=== PATIENT | female | born 1995 | race Caucasian/White ===

== ENCOUNTER 2017-06-06 21:44 | Emergency (ER) | payer SELFPAY ==
[~2017-06-06 21:44] MED LIST: IUD PV
== END 2017-06-06 21:47 | disposition left against medical advice (07) ==
LOC: C.EDB 21:46
DX: Z00.8 Encounter for other general examination (principal)

== ENCOUNTER 2020-03-04 09:53 | Inpatient (IN) ==
[2020-03-04] MEDS ORDERED: OXYTOCIN 30 UNITS/500 ML BAG IV PRN (11:35)
[2020-03-04 11:56] LABS: Hematocrit (blood only) 28.2 % (37-47); Hemoglobin 9.8 g/dL (12.0-16.0); Mean Corpuscular Hemoglobin 30.6 pg (25-34); Mean Corpuscular Volume 88.1 fL (80-100); Mean Platelet Volume 9.5 fL (7.4-10.4); Platelet Count 156 K/uL (130-400); RDW Coefficient of Variation 14.2 % (11.5-14.5); RDW Standard Deviation 45.9 fL (36.4-46.3); White Blood Count 7.16 K/uL (4.8-10.8)
[2020-03-04 12:14] LABS: Mean Corpuscular Hgb Conc 34.8 g/dL (32-36)
--- NOTE | 2020-03-04 12:22 | Post Operative Brief Note ---
PG Immediate Post Op with CF Date of Surgery March 04, 2020 Pre & Post Diagnosis Missed I identified the patient and participated in the time-out.: Yes Procedure Dilation and evacuation and curettage Surgeon Maya Altamirano MD, FACOG Chain Saw Mechanic none Estimated Blood Loss 200 Findings Consistent with Post-Op Diagnosis (uterus sounds to 12cm preprocedure, small and mobile postprocedure. large POCs) Fluids 500 Specimens Specimen Description: POCs Anesthesia Type General Complications none Disposition Accompanied Patient To Recovery: No Disposition: Recovery Room
--- NOTE | 2020-03-04 15:24 | History & Physical Report ---
Date of Service March 04, 2020 Assessment & Plan (1) 39 weeks gestation of : (2) Left femoral hernia without obstruction or gangrene: (3) Rh negative status during : admit, iv, labs done. as afternoon progressed multiple emergencies have come into unit. due to her desire to have epidural before we do anything, we have not had chance to obtain such so in essence we have not done anything for her in way of induction. there is not a likelihood i can begin that process in next 6hr. we need the labor room for active laboring patient. she is given option of going home (we would remove iv) with plan to return tomorrow, vs. move to non labor room to await time when we can begin induction after placement of epidural. nst reactive. she and partner decide to stay in hospital and move to another room to await induction. we did feed her lunch earlier and will plan to offer dinner if continues to wait. History of Present Illness Chief Complaint: planned induction Primary Care Provider: Annette See, DO 25yo at 39wks sofie presents to L&D for planned induction for history of inguinal hernia and pain. She has been offered induction after 39 completed weeks so that she can get to point of repair of hernia after course. She has significant pain with exams. She was delayed as far her arrival time this am and unfortunately when she did come the unit was too busy to begin her induction. She did get an iv site and labs and we had discussed use of epidural and then add pitocin and plan kendrick ripening balloon. pnc c/b 1. rh neg 2. inguinal hernia pnl rh neg, ri, gbs neg obh: g1 gynh: nl paps, no stds. Current Active Problems Problem Status Onset Vaginal discharge in in third trimester Left femoral hernia without obstruction or gangrene Rh negative status during Supervision of normal intrauterine in primigravida Allergies Allergy/AdvReac Type Severity Reaction Status Date / Time Penicillins Allergy Severe HIVES Verified 03/03/20 11:16 Home Medications Home Medications Medication Instructions Recorded Confirmed Type breast pump #1 ea 01/20/20 03/03/20 Rx docosahexaenoic acid [ DHA] 1 mg PO BID 03/04/20 03/04/20 History ferrous sulfate [Iron (ferrous 325 mg PO BID 03/04/20 03/04/20 History sulfate)] Patient History Social History Preferred Language: [place] 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: No Beliefs That Will Affect Care: None marital status: Single marital status details: RAFIQ Carver (27) [phone] Current Living Situation: Family and Significant Other Current Living Situation Comment: Pt lives with mother JOSE ARMANDO Lester current occupational status: employed 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 [employer] Other Information That Helps Us Care for You: No Feels Safe at Home: Yes Smoking Status: Former smoker Tobacco Type: cigarettes ; Cigarettes Per Day: 3 ; Second Hand Exposure: No ; Hx Alcohol Use: No Hx Substance Use: No Review of Systems no fever no change in stools no dysuria and no abnormal vaginal bleeding Physical Exam Constitutional: WD/WN, vitals as above Neurologic: grossly normal Psychiatric: A+Ox3, euthymic affect Genitourinary: OB Exam Monitor Tracing: + external FHT monitor used (nst react shashi ) and + external uterine monitor used (irreg) Results & Data Vital Signs (Past 12 Hours) Vital Signs Temp Pulse Resp BP 03/04/20 14:41 98.8 F 86 20 107/58 L 03/04/20 11:19 83 92/53 L 03/04/20 11:09 98.8 F 83 20 92/53 L Coding Level of Care Code None Diagnoses 39 weeks gestation of Z3A.39 Left femoral hernia without obstruction or gangrene K41.90 Rh negative status during O26.899; Z67.91
[2020-03-04] MEDS ORDERED: ePHEDrine sulfate 50 MG/ML AMP ONE (20:19)
[2020-03-04] MEDS ORDERED: fentaNYL citrate 100 MCG/2 ML VIAL ONE (20:19)
[2020-03-04] MEDS ORDERED: BUPIVACAINE 0.25% 30 ML VIAL ONE (20:19)
[2020-03-04] MEDS ORDERED: fentaNYL 2MCG/ML ROPIV 1.25MG/ML 100 ML BAG EPI ONE (20:20)
[2020-03-04] MEDS: LACTATED RINGER'S 1,000 ML IV PRN ×2 (20:30→21:29)
[2020-03-04] MEDS ORDERED: NALOXONE HCL 0.4 MG/1 ML VIAL/CARP IV PRN (20:57)
[2020-03-04] MEDS ORDERED: ONDANSETRON INJ 2 MG/ML 2 ML VIAL IV PRN (20:57)
[2020-03-04] MEDS ORDERED: NALOXONE HCL 1 MG in SODIUM CHLORIDE 0.9% 1000ML 1,000 ML IV PRN (20:57)
[2020-03-04] MEDS ORDERED: DiphenhydrAMINE HCL 50 MG/ML VIAL IV PRN (20:57)
[2020-03-04] MEDS ORDERED: NALBUPHINE HCL INJ 10 MG/ML AMP IV PRN (20:57)
[2020-03-04] MEDS ORDERED: ePHEDrine sulfate 50 MG/ML AMP IV PRN (20:57)
--- NOTE | 2020-03-04 21:03 | Anesthesiology Consultation ---
Date of Service March 04, 2020 Assessment & Plan (1) Encounter for pre-operative examination: Chart Review Chart Review: Acceptable Risk for Labor Epidural Consults Requested none ASA ASA2 Proposed Anesthesia Anesthesia Type: Labor Epidural Risk / Benefits Reviewed With: PT / POA / Parent / Guardian, Accepts Plan and Informed Consent Obtained History Height/Weight Height: 5 ft 6 in Weight: 74.482 kg Allergies Allergy/AdvReac Type Severity Reaction Status Date / Time Penicillins Allergy Severe HIVES Verified 03/03/20 11:16 Medications Home Medications Medication Instructions Recorded Confirmed Last Taken breast pump #1 ea 01/20/20 03/03/20 Unknown docosahexaenoic acid [ DHA] 1 mg PO BID 03/04/20 03/04/20 03/03/20 20:00 ferrous sulfate [Iron (ferrous 325 mg PO BID 03/04/20 03/04/20 03/03/20 20:00 sulfate)] Active Medications Generic Name Dose Route Start Last Admin Trade Name Freq PRN Reason Stop Dose Admin Lactated Ringer's 1,000 mls @ 125 mls/hr 03/04/20 11:35 03/04/20 20:31 Lr IV 03/06/20 11:34 999 mls/hr .Q8H PRN Infusion L&D Protocol Protocol Past Medical History Medical History (Updated 03/04/20 @ 21:03 by Ronen Morales DO) Encounter for anatomic survey Hernia Ovarian cyst Painful intercourse UTI (urinary tract infection) Varicella vaccine Exercise / Class Metabolic Activity II 4-5 Yardwork/Stairs/Walk up hill Past Family History Family History Mother Kidney stone Sister Thyroid disease Ovarian cyst Aunt Ovarian cyst Cystic kidney disease Past Surgical History Surgical History S/P wisdom tooth extraction S/P wrist surgery Past Anesthesia History No Hx of Anesthesia Complications and No Family Hx of Anesthesia Complications History of PONV No Hx of PONV and No Hx of Motion Sickness Social History Smoking Status: Former smoker tobacco type: cigarettes Smoking cigarettes per day: 3 Hx Alcohol Use: No Hx Substance Use: No substance use type: does not use Physical Exam Vital Signs Last Vital Signs Temp 98.2 F 03/04/20 20:14 Pulse 84 03/04/20 20:15 Resp 18 03/04/20 20:14 BP 102/62 03/04/20 20:15 ENMT Mouth: no dentition abnormality Thyromental Distance: > or= 3.5 Finger Breadths Mallampati Class: II Neck normal visual inspection Respiratory normal respiratory effort Auscultation: lungs clear to auscultation bilaterally Cardiovascular Rate/Rhythm: regular rate and regular rhythm Testing Laboratory Results 03/04/20 11:42 Blood Type B Negative 03/04/20 11:42 Antibody Screen POSITIVE A 03/04/20 11:42
--- NOTE | 2020-03-04 22:22 | Obstetrical Progress Note ---
Date of Service March 04, 2020 Assessment & Plan (1) 39 weeks gestation of : (2) Left femoral hernia without obstruction or gangrene: kendrick balloon placed. begin pitocin. fhts categ 1. Subjective pt now comfortable with epidural and ready to proceed with kendrick ripening balloon. i could not effectively check her cx in office yesterday, so will do so first to decide if kendrick indicated. will also begin pitocin for planned inductio n. Physical Exam Constitutional: WD/WN, vitals as above Genitourinary: OB Exam Abdomen: + estimated weight (7-8#) Manual OB Exam: + cervical dilation fingertip, + cervical effacement (75%) and + station - 2 OB Exam Monitor Tracing: + external FHT monitor used (145 mod variability, reactive), + external uterine monitor used (irreg), + category I and + normal FHT variability SSE, kendrick balloon placed after grasping cx with ring, 40cc water placed in balloon. spec removed. kendrick taped to leg. kendrick urinary catheter placed in bladder under sterile conditions. Results & Data Vital Signs (Past 12 Hours) Vital Signs Temp Pulse Resp BP Pulse Ox 03/04/20 22:18 77 85/50 L 03/04/20 22:13 91 H 98 03/04/20 22:09 86 99/58 L 03/04/20 22:08 92 H 99 03/04/20 22:03 82 100 03/04/20 22:00 90 104/52 L 03/04/20 21:59 92 H 86 L 03/04/20 21:58 87 100 03/04/20 21:53 91 H 99 03/04/20 21:49 82 102/59 L 03/04/20 21:48 84 96 03/04/20 21:43 83 96 03/04/20 21:39 83 101/61 03/04/20 21:38 87 98 03/04/20 21:33 93 H 97 03/04/20 21:28 85 108/62 98 03/04/20 21:25 78 105/61 03/04/20 21:23 87 99 03/04/20 21:22 80 102/59 L 03/04/20 21:19 83 106/56 L 03/04/20 21:18 74 100 03/04/20 21:17 85 106/58 L 03/04/20 21:13 85 100 03/04/20 21:08 87 100 03/04/20 21:03 91 H 100 03/04/20 20:15 84 102/62 03/04/20 20:14 98.2 F 18 03/04/20 14:41 98.8 F 86 20 107/58 L 03/04/20 11:19 83 92/53 L 03/04/20 11:09 98.8 F 83 20 92/53 L PG Care Time/CCT Total # of Minutes Spent Total Time Spent with Patient: Total time spent is greater than 50% in coordination of care (as documented) at patient's floor/unit and/or counseling patient: Coding Level of Care Code None Diagnoses 39 weeks gestation of Z3A.39 Left femoral hernia without obstruction or gangrene K41.90 CPT Codes Kendrick Bulb Placement for Cervical Ripening - [id number] ([id number])
[2020-03-04] MEDS: OXYTOCIN 30 UNITS/500 ML BAG IV PRN (22:32)
[2020-03-05] MEDS: LACTATED RINGER'S 1,000 ML IV PRN ×3 (05:15→18:21)
[2020-03-05] MEDS: fentaNYL 2MCG/ML ROPIV 1.25MG/ML 100 ML BAG EPI PRN ×3 (06:28→18:36)
--- NOTE | 2020-03-05 07:15 | Labor Progress Brief Note ---
Date of Service March 05, 2020 Subjective Reason For Note: Routine Evaluation resting well with epidural. Assessment & Plan (1) 39 weeks gestation of : (2) Left femoral hernia without obstruction or gangrene: (3) Rh negative status during : (4) Encounter for induction of labor: cont with pitocin, can see how arom helps labor pattern. fhts categ1. Physical Exam Constitutional: WD/WN, vitals as above Psychiatric: A+Ox3, euthymic affect Genitourinary: Manual OB Exam: + cervical dilation 4 cm, + cervical effacement (75%), + station -2 and + amniotic fluid (AROM) clear OB Exam Monitor Tracing: + external FHT monitor used (135 mod variability, reactive), + external uterine monitor used (q2), + category I and + normal FHT variability Results & Data Vital Signs (Past 12 Hours) Vital Signs Temp Pulse Resp BP Pulse Ox 03/05/20 07:10 78 94 03/05/20 07:09 78 94 03/05/20 07:07 77 99/50 L 03/05/20 07:05 84 96 03/05/20 07:00 84 20 95 03/05/20 06:55 85 98 03/05/20 06:51 98.1 F 77 100/56 L 03/05/20 06:50 88 97 03/05/20 06:45 74 95 03/05/20 06:40 71 95 03/05/20 06:36 75 95/54 L 03/05/20 06:35 75 94 03/05/20 06:30 78 16 95 03/05/20 06:28 78 94 03/05/20 06:25 80 95 03/05/20 06:20 78 97/54 L 94 03/05/20 06:16 77 94 03/05/20 06:15 76 96 03/05/20 06:11 80 94 03/05/20 06:10 78 96 03/05/20 06:05 81 96/52 L 95 03/05/20 06:03 79 94 03/05/20 06:00 72 18 95 03/05/20 05:56 78 94 03/05/20 05:55 76 95 03/05/20 05:50 67 94/50 L 94 03/05/20 05:49 79 94 03/05/20 05:45 75 95 03/05/20 05:44 75 94 03/05/20 05:40 75 95 03/05/20 05:38 79 94 03/05/20 05:35 96 H 94/54 L 96 03/05/20 05:30 80 93 03/05/20 05:29 16 03/05/20 05:25 74 95 03/05/20 05:23 79 94 03/05/20 05:21 77 93/56 L 03/05/20 05:20 93 H 95 03/05/20 05:17 86 93 03/05/20 05:15 98.1 F 80 95 03/05/20 05:12 78 94 03/05/20 05:10 75 95 03/05/20 05:07 77 94 03/05/20 05:05 81 95/53 L 94 03/05/20 05:01 74 94 03/05/20 05:00 76 18 94 03/05/20 04:55 76 95 03/05/20 04:54 77 94 03/05/20 04:50 77 95/55 L 96 03/05/20 04:46 78 94 03/05/20 04:45 81 95 03/05/20 04:41 79 94 03/05/20 04:40 73 96 03/05/20 04:37 80 87/50 L 03/05/20 04:35 82 93 03/05/20 04:34 78 94 03/05/20 04:30 93 H 95 03/05/20 04:25 78 95 03/05/20 04:23 83 94 03/05/20 04:21 80 101/57 L 03/05/20 04:20 81 93 03/05/20 04:17 82 94 03/05/20 04:15 77 94 03/05/20 04:11 77 94 03/05/20 04:10 73 96 03/05/20 04:07 92 H 100/56 L 03/05/20 04:05 73 95 03/05/20 04:04 75 94 03/05/20 04:00 77 95 03/05/20 03:59 77 94 03/05/20 03:54 77 95 03/05/20 03:52 76 94 03/05/20 03:50 80 101/55 L 03/05/20 03:49 79 94 03/05/20 03:45 76 94 04/30/20 03:44 78 94 03/05/20 03:39 74 94 03/05/20 03:38 76 94 03/05/20 03:35 80 96/57 L 03/05/20 03:34 75 94 03/05/20 03:32 75 94 03/05/20 03:30 18 03/05/20 03:29 76 94 03/05/20 03:24 73 94 03/05/20 03:21 76 94 03/05/20 03:20 77 95/54 L 03/05/20 03:19 76 94 03/05/20 03:14 77 94 03/05/20 03:09 81 94 03/05/20 03:06 80 98/54 L 03/05/20 03:05 83 93 03/05/20 03:04 80 94 03/05/20 03:00 20 03/05/20 02:59 85 94 03/05/20 02:54 84 94 03/05/20 02:51 79 96/51 L 03/05/20 02:49 80 94 03/05/20 02:44 84 94 03/05/20 02:42 82 94 03/05/20 02:39 81 95 03/05/20 02:37 87 100/58 L 03/05/20 02:34 89 95 03/05/20 02:32 82 94 03/05/20 02:30 97.9 F 20 03/05/20 02:29 84 98 03/05/20 02:24 89 99 03/05/20 02:21 86 108/61 03/05/20 02:19 97 H 99 03/05/20 02:14 82 95 03/05/20 02:09 89 96 03/05/20 02:06 83 106/57 L 03/05/20 02:04 78 96 03/05/20 02:00 20 03/05/20 01:59 83 94 03/05/20 01:54 76 96 03/05/20 01:52 80 104/59 L 03/05/20 01:51 79 94 03/05/20 01:49 79 97 03/05/20 01:44 78 96 03/05/20 01:43 80 94 03/05/20 01:39 84 96 03/05/20 01:35 76 99/58 L 03/05/20 01:34 79 94 03/05/20 01:31 77 93 03/05/20 01:30 16 03/05/20 01:29 79 95 03/05/20 01:26 79 94 03/05/20 01:24 78 96 03/05/20 01:21 82 102/61 03/05/20 01:19 85 97 03/05/20 01:14 92 H 97 03/05/20 01:09 79 96 03/05/20 01:08 82 94 03/05/20 01:06 76 102/58 L 03/05/20 01:04 80 96 03/05/20 01:02 84 93 03/05/20 01:00 20 03/05/20 00:59 82 95 03/05/20 00:54 78 97 03/05/20 00:52 72 104/61 03/05/20 00:49 81 95 03/05/20 00:44 79 96 03/05/20 00:41 80 94 03/05/20 00:39 75 96 03/05/20 00:35 80 99/55 L 03/05/20 00:34 78 95 03/05/20 00:30 81 16 94 03/05/20 00:29 85 97 03/05/20 00:24 81 97 03/05/20 00:21 85 98/63 L 03/05/20 00:19 78 98 03/05/20 00:14 76 96 03/05/20 00:09 79 99 03/05/20 00:07 69 103/60 91 03/05/20 00:04 75 96 03/05/20 00:00 03/04/20 23:59 75 96 03/04/20 23:56 79 94 03/04/20 23:54 70 97 03/04/20 23:51 65 101/55 L 03/04/20 23:50 78 94 03/04/20 23:49 72 97 03/04/20 23:44 80 98 03/04/20 23:39 80 97 03/04/20 23:37 77 103/57 L 03/04/20 23:34 75 98 03/04/20 23:30 20 03/04/20 23:29 82 96 03/04/20 23:24 78 98 03/04/20 23:21 73 102/62 04/29/20 23:19 79 97 03/04/20 23:14 86 97 03/04/20 23:09 80 99 03/04/20 23:05 88 102/58 L 03/04/20 23:04 86 97 03/04/20 23:01 84 104/61 03/04/20 22:59 83 98 03/04/20 22:55 91 H 103/62 03/04/20 22:54 98.1 F 88 20 97 03/04/20 22:51 86 101/63 03/04/20 22:49 88 97 03/04/20 22:45 85 103/57 L 03/04/20 22:44 89 97 03/04/20 22:41 83 103/58 L 03/04/20 22:39 84 99 03/04/20 22:35 83 106/61 03/04/20 22:34 87 99 03/04/20 22:30 90 111/68 03/04/20 22:29 99 H 99 03/04/20 22:24 111 H 107/64 97 03/04/20 22:22 94 H 93 03/04/20 22:21 78 84/52 L 03/04/20 22:19 75 87/52 L 98 03/04/20 22:18 77 85/50 L 03/04/20 22:13 91 H 98 03/04/20 22:09 86 99/58 L 03/04/20 22:08 92 H 99 03/04/20 22:03 82 100 03/04/20 22:00 90 104/52 L 03/04/20 21:59 92 H 86 L 03/04/20 21:58 87 100 03/04/20 21:53 91 H 99 03/04/20 21:49 82 102/59 L 03/04/20 21:48 84 96 03/04/20 21:43 83 96 03/04/20 21:39 83 101/61 03/04/20 21:38 87 98 03/04/20 21:33 93 H 97 03/04/20 21:28 85 108/62 98 03/04/20 21:25 78 105/61 03/04/20 21:23 87 99 03/04/20 21:22 80 102/59 L 03/04/20 21:19 83 106/56 L 03/04/20 21:18 74 100 03/04/20 21:17 85 106/58 L 03/04/20 21:13 85 100 03/04/20 21:08 87 100 03/04/20 21:03 91 H 100 03/04/20 20:15 84 102/62 03/04/20 20:14 98.2 F 18 Coding Level of Care Code None Diagnoses 39 weeks gestation of Z3A.39 Left femoral hernia without obstruction or gangrene K41.90 Rh negative status during O26.899; Z67.91 Encounter for induction of labor Z34.90
--- NOTE | 2020-03-05 14:27 | Labor Progress Brief Note ---
Date of Service March 05, 2020 Subjective Delayed documentation due to patient care. Patient seen around 1pm. Comfortable with epidural. Assessment & Plan (1) Encounter for induction of labor: Progress noted but is very slow. Discussed with patient at our first visit this morning that we are hoping to avoid a long hard second stage to protect her hernia from worsening. She and FOB were made aware of my concerns about the unusual labor pattern, high pitocin doses being required, and slow progress, which do not necessarily eliu well for a short easy push. She is aware. Since there is cervical change at last exam, she wished to continue laboring at that time. Physical Exam Physical Exam: /-3/post Progress noted but station and position remain very high and cervix is still a full finger's length of thickness. Leakage of fluid continues. FHT Cat 1 Pit @ 30 Temp noted now at 14:21 to be 100F also. Results & Data Vital Signs (Past 12 Hours) Vital Signs Temp Pulse Resp BP Pulse Ox 03/05/20 14:21 84 91/54 L 03/05/20 14:20 85 95 03/05/20 14:16 89 94 03/05/20 14:15 88 94 03/05/20 14:10 87 94 03/05/20 14:05 90 94/53 L 94 03/05/20 14:00 92 H 95 03/05/20 13:55 99 H 95 03/05/20 13:52 96 H 94 03/05/20 13:51 88 94/52 L 03/05/20 13:50 93 H 95 03/05/20 13:45 104 H 95 03/05/20 13:44 99 H 94 03/05/20 13:40 94 H 95 03/05/20 13:35 88 98/54 L 96 03/05/20 13:30 93 H 96 03/05/20 13:25 92 H 98 03/05/20 13:22 88 94/53 L 03/05/20 13:20 87 96 03/05/20 13:15 91 H 97 03/05/20 13:10 93 H 97 03/05/20 13:05 86 97/54 L 96 03/05/20 13:00 98 H 97 03/05/20 12:55 96 H 96 03/05/20 12:51 86 96/52 L 03/05/20 12:50 94 H 95 03/05/20 12:45 92 H 96 03/05/20 12:43 90 94 03/05/20 12:40 88 95 03/05/20 12:35 100 H 92/51 L 95 03/05/20 12:30 86 94 03/05/20 12:26 78 94 03/05/20 12:25 92 H 94 03/05/20 12:21 87 94 03/05/20 12:20 100.0 F H 83 20 95/54 L 95 03/05/20 12:16 88 94 03/05/20 12:15 92 H 94 03/05/20 12:10 92 H 94 03/05/20 12:06 87 93/54 L 03/05/20 12:05 90 94 03/05/20 12:01 100 H 92 03/05/20 12:00 91 H 94 03/05/20 11:55 99 H 94 03/05/20 11:52 87 96/54 L 03/05/20 11:50 99 H 94 03/05/20 11:49 92 H 94 03/05/20 11:45 101 H 94 03/05/20 11:43 98 H 94 03/05/20 11:40 92 H 94 03/05/20 11:35 93 H 98/52 L 94 03/05/20 11:33 95 H 94 03/05/20 11:30 93 H 94 03/05/20 11:25 107 H 94 03/05/20 11:24 95 H 94 03/05/20 11:21 95 H 93/50 L 03/05/20 11:20 98 H 94 03/05/20 11:19 94 H 94 03/05/20 11:16 99.5 F 20 03/05/20 11:15 99 H 93 03/05/20 11:14 93 H 94 03/05/20 11:10 89 94 03/05/20 11:06 91 H 92/52 L 94 03/05/20 11:05 91 H 94 03/05/20 11:00 92 H 94 03/05/20 10:57 89 94 03/05/20 10:55 94 H 94 03/05/20 10:51 99 H 94 03/05/20 10:50 96 H 98/54 L 93 03/05/20 10:45 91 H 94 03/05/20 10:40 91 H 94 03/05/20 10:36 83 94 03/05/20 10:35 81 95/52 L 93 03/05/20 10:30 93 H 93 03/05/20 10:25 89 94 03/05/20 10:22 89 94/50 L 03/05/20 10:20 90 94 03/05/20 10:19 95 H 94 03/05/20 10:15 90 94 03/05/20 10:12 90 94 03/05/20 10:10 99 H 95 03/05/20 10:05 94 H 101/55 L 94 03/05/20 10:00 97 H 94 03/05/20 09:55 99 H 95 03/05/20 09:54 98 H 94 03/05/20 09:50 95 H 100/54 L 97 03/05/20 09:46 96 H 94 03/05/20 09:45 92 H 95 03/05/20 09:41 97 H 94 03/05/20 09:40 95 H 95 03/05/20 09:36 96 H 106/53 L 03/05/20 09:35 100 H 95 03/05/20 09:30 94 H 96 03/05/20 09:26 102 H 94 03/05/20 09:25 96 H 94 03/05/20 09:21 99.3 F 88 20 94/51 L 94 03/05/20 09:20 97 H 95 03/05/20 09:16 103 H 94 03/05/20 09:15 97 H 95 03/05/20 09:10 94 H 95 03/05/20 09:07 91 H 94 03/05/20 09:05 88 97/52 L 94 03/05/20 09:00 86 95 03/05/20 08:59 96 H 94 03/05/20 08:55 88 94 03/05/20 08:53 94 H 94 03/05/20 08:52 93 H 98/51 L 03/05/20 08:50 100 H 97 03/05/20 08:49 98 H 93/55 L 03/05/20 08:45 84 95 03/05/20 08:44 83 81/46 L 94 03/05/20 08:40 80 94 03/05/20 08:38 80 94 03/05/20 08:36 80 88/49 L 03/05/20 08:35 76 94 03/05/20 08:30 79 94 03/05/20 08:25 75 94 03/05/20 08:21 74 88/52 L 03/05/20 08:20 84 94 03/05/20 08:15 78 94 03/05/20 08:10 76 94 03/05/20 08:07 75 94 03/05/20 08:06 76 90/51 L 03/05/20 08:05 76 94 03/05/20 08:00 78 94 03/05/20 07:57 74 94 03/05/20 07:55 77 94 03/05/20 07:51 73 91/53 L 92 03/05/20 07:50 79 94 03/05/20 07:45 74 94 03/05/20 07:44 74 94 03/05/20 07:40 79 94 03/05/20 07:35 82 95/53 L 94 03/05/20 07:30 78 96 03/05/20 07:29 76 94 03/05/20 07:25 81 96 03/05/20 07:20 98.4 F 83 20 97/52 L 96 03/05/20 07:15 80 94 03/05/20 07:10 78 94 03/05/20 07:09 78 94 03/05/20 07:07 77 99/50 L 03/05/20 07:05 84 96 03/05/20 07:00 84 20 95 03/05/20 06:55 85 98 03/05/20 06:51 98.1 F 77 100/56 L 03/05/20 06:50 88 97 03/05/20 06:45 74 95 03/05/20 06:40 71 95 03/05/20 06:36 75 95/54 L 03/05/20 06:35 75 94 03/05/20 06:30 78 16 95 03/05/20 06:28 78 94 03/05/20 06:25 80 95 03/05/20 06:20 78 97/54 L 94 03/05/20 06:16 77 94 03/05/20 06:15 76 96 03/05/20 06:11 80 94 03/05/20 06:10 78 96 03/05/20 06:05 81 96/52 L 95 03/05/20 06:03 79 94 03/05/20 06:00 72 18 95 03/05/20 05:56 78 94 03/05/20 05:55 76 95 03/05/20 05:50 67 94/50 L 94 03/05/20 05:49 79 94 03/05/20 05:45 75 95 03/05/20 05:44 75 94 03/05/20 05:40 75 95 03/05/20 05:38 79 94 03/05/20 05:35 96 H 94/54 L 96 03/05/20 05:30 80 93 03/05/20 05:29 16 03/05/20 05:25 74 95 03/05/20 05:23 79 94 03/05/20 05:21 77 93/56 L 03/05/20 05:20 93 H 95 03/05/20 05:17 86 93 03/05/20 05:15 98.1 F 80 95 03/05/20 05:12 78 94 03/05/20 05:10 75 95 03/05/20 05:07 77 94 03/05/20 05:05 81 95/53 L 94 03/05/20 05:01 74 94 03/05/20 05:00 76 18 94 03/05/20 04:55 76 95 03/05/20 04:54 77 94 03/05/20 04:50 77 95/55 L 96 03/05/20 04:46 78 94 03/05/20 04:45 81 95 03/05/20 04:41 79 94 03/05/20 04:40 73 96 03/05/20 04:37 80 87/50 L 03/05/20 04:35 82 93 03/05/20 04:34 78 94 03/05/20 04:30 93 H 95 03/05/20 04:25 78 95 03/05/20 04:23 83 94 03/05/20 04:21 80 101/57 L 03/05/20 04:20 81 93 03/05/20 04:17 82 94 03/05/20 04:15 77 94 03/05/20 04:11 77 94 03/05/20 04:10 73 96 03/05/20 04:07 92 H 100/56 L 03/05/20 04:05 73 95 03/05/20 04:04 75 94 03/05/20 04:00 77 95 03/05/20 03:59 77 94 03/05/20 03:54 77 95 03/05/20 03:52 76 94 03/05/20 03:50 80 101/55 L 03/05/20 03:49 79 94 03/05/20 03:45 76 94 03/05/20 03:44 78 94 03/05/20 03:39 74 94 03/05/20 03:38 76 94 03/05/20 03:35 80 96/57 L 03/05/20 03:34 75 94 03/05/20 03:32 75 94 03/05/20 03:30 18 03/05/20 03:29 76 94 03/05/20 03:24 73 94 03/05/20 03:21 76 94 03/05/20 03:20 77 95/54 L 03/05/20 03:19 76 94 03/05/20 03:14 77 94 03/05/20 03:09 81 94 03/05/20 03:06 80 98/54 L 03/05/20 03:05 83 93 03/05/20 03:04 80 94 03/05/20 03:00 20 03/05/20 02:59 85 94 03/05/20 02:54 84 94 03/05/20 02:51 79 96/51 L 03/05/20 02:49 80 94 03/05/20 02:44 84 94 03/05/20 02:42 82 94 03/05/20 02:39 81 95 03/05/20 02:37 87 100/58 L 03/05/20 02:34 89 95 03/05/20 02:32 82 94 03/05/20 02:30 97.9 F 20 03/05/20 02:29 84 98 Coding Level of Care Code None Diagnoses Encounter for induction of labor Z34.90
[2020-03-05] MEDS ORDERED: Nursing to Pharmacy Communication ONE (17:47)
--- NOTE | 2020-03-05 18:12 | Labor Progress Brief Note ---
Date of Service March 05, 2020 Subjective Pain in L leg / hip area. Epidural re-bolus earlier did not provide relief of this exact pain. Wonder if this is due to hernia contents innervated at a higher spinal level than the epidural reaches. Patient may try to self-reduce the hernia to see if this provides pain relief. Assessment & Plan (1) Encounter for induction of labor: Continue current mgmt. Physical Exam Physical Exam: FHT Cat 1 [place] Q3 Pit @ 30 Cvx 6-7/100/0 Results & Data Vital Signs (Past 12 Hours) Vital Signs Temp Pulse Resp BP Pulse Ox 03/05/20 18:07 94 H 102/52 L 03/05/20 18:05 97 H 100 03/05/20 18:00 97 H 100 03/05/20 17:55 94 H 100 03/05/20 17:50 93 H 88/49 L 96 03/05/20 17:45 105 H 96 03/05/20 17:40 94 H 99 03/05/20 17:36 92 H 86/47 L 03/05/20 17:35 99 H 100 03/05/20 17:30 93 H 99 03/05/20 17:25 89 100 03/05/20 17:22 86 99/55 L 03/05/20 17:20 88 99 03/05/20 17:15 96 H 99 03/05/20 17:10 99 H 98 03/05/20 17:07 95 H 106/57 L 03/05/20 17:05 90 97 03/05/20 17:00 98.2 F 97 H 20 98 03/05/20 16:55 98 H 98 03/05/20 16:52 98 H 97/54 L 03/05/20 16:50 92 H 97 03/05/20 16:45 92 H 97 03/05/20 16:40 109 H 98 03/05/20 16:35 88 91/55 L 96 03/05/20 16:30 87 18 97 03/05/20 16:25 86 96 03/05/20 16:22 86 90/52 L 03/05/20 16:20 88 96 03/05/20 16:15 89 96 03/05/20 16:10 101 H 97 03/05/20 16:05 94 H 96/51 L 95 03/05/20 16:03 92 H 94 03/05/20 16:00 93 H 18 96 03/05/20 15:55 91 H 97 03/05/20 15:51 90 91/54 L 03/05/20 15:50 99 H 97 03/05/20 15:47 100 H 94 03/05/20 15:45 100 H 97 03/05/20 15:40 96 H 97 03/05/20 15:36 95 H 99/58 L 03/05/20 15:35 93 H 97 03/05/20 15:30 95 H 18 96 03/05/20 15:25 97 H 97 03/05/20 15:21 93 H 102/54 L 03/05/20 15:20 96 H 96 03/05/20 15:15 105 H 98 03/05/20 15:10 106 H 97 03/05/20 15:05 93 H 101/56 L 97 03/05/20 15:00 98.4 F 97 H 20 98 03/05/20 14:59 96 H 100/56 L 03/05/20 14:55 94 H 96 03/05/20 14:51 87 96/53 L 03/05/20 14:50 90 96 03/05/20 14:45 97 H 96 03/05/20 14:40 95 H 97 03/05/20 14:35 97 H 97/53 L 96 03/05/20 14:30 99 H 97 03/05/20 14:28 92 H 94 03/05/20 14:25 92 H 95 03/05/20 14:21 99.5 F 84 20 91/54 L 03/05/20 14:20 85 95 03/05/20 14:16 89 94 03/05/20 14:15 88 94 03/05/20 14:10 87 94 03/05/20 14:05 90 94/53 L 94 03/05/20 14:00 92 H 95 03/05/20 13:55 99 H 95 03/05/20 13:52 96 H 94 03/05/20 13:51 88 94/52 L 03/05/20 13:50 93 H 95 03/05/20 13:45 104 H 95 03/05/20 13:44 99 H 94 03/05/20 13:40 94 H 95 03/05/20 13:35 88 98/54 L 96 03/05/20 13:30 93 H 96 03/05/20 13:25 92 H 98 03/05/20 13:22 88 94/53 L 03/05/20 13:20 87 96 03/05/20 13:15 91 H 97 03/05/20 13:10 93 H 97 03/05/20 13:05 86 97/54 L 96 03/05/20 13:00 98 H 97 03/05/20 12:55 96 H 96 03/05/20 12:51 86 96/52 L 03/05/20 12:50 94 H 95 03/05/20 12:45 92 H 96 03/05/20 12:43 90 94 03/05/20 12:40 88 95 03/05/20 12:35 100 H 92/51 L 95 03/05/20 12:30 86 94 03/05/20 12:26 78 94 03/05/20 12:25 92 H 94 03/05/20 12:21 87 94 03/05/20 12:20 100.0 F H 83 20 95/54 L 95 03/05/20 12:16 88 94 03/05/20 12:15 92 H 94 03/05/20 12:10 92 H 94 03/05/20 12:06 87 93/54 L 03/05/20 12:05 90 94 03/05/20 12:01 100 H 92 03/05/20 12:00 91 H 94 03/05/20 11:55 99 H 94 03/05/20 11:52 87 96/54 L 03/05/20 11:50 99 H 94 03/05/20 11:49 92 H 94 03/05/20 11:45 101 H 94 03/05/20 11:43 98 H 94 03/05/20 11:40 92 H 94 03/05/20 11:35 93 H 98/52 L 94 03/05/20 11:33 95 H 94 03/05/20 11:30 93 H 94 03/05/20 11:25 107 H 94 03/05/20 11:24 95 H 94 03/05/20 11:21 95 H 93/50 L 03/05/20 11:20 98 H 94 03/05/20 11:19 94 H 94 03/05/20 11:16 99.5 F 20 03/05/20 11:15 99 H 93 03/05/20 11:14 93 H 94 03/05/20 11:10 89 94 03/05/20 11:06 91 H 92/52 L 94 03/05/20 11:05 91 H 94 03/05/20 11:00 92 H 94 03/05/20 10:57 89 94 03/05/20 10:55 94 H 94 03/05/20 10:51 99 H 94 03/05/20 10:50 96 H 98/54 L 93 03/05/20 10:45 91 H 94 03/05/20 10:40 91 H 94 03/05/20 10:36 83 94 03/05/20 10:35 81 95/52 L 93 03/05/20 10:30 93 H 93 03/05/20 10:25 89 94 03/05/20 10:22 89 94/50 L 03/05/20 10:20 90 94 03/05/20 10:19 95 H 94 03/05/20 10:15 90 94 03/05/20 10:12 90 94 03/05/20 10:10 99 H 95 03/05/20 10:05 94 H 101/55 L 94 03/05/20 10:00 97 H 94 03/05/20 09:55 99 H 95 03/05/20 09:54 98 H 94 03/05/20 09:50 95 H 100/54 L 97 03/05/20 09:46 96 H 94 03/05/20 09:45 92 H 95 03/05/20 09:41 97 H 94 03/05/20 09:40 95 H 95 03/05/20 09:36 96 H 106/53 L 03/05/20 09:35 100 H 95 03/05/20 09:30 94 H 96 03/05/20 09:26 102 H 94 03/05/20 09:25 96 H 94 03/05/20 09:21 99.3 F 88 20 94/51 L 94 03/05/20 09:20 97 H 95 03/05/20 09:16 103 H 94 03/05/20 09:15 97 H 95 03/05/20 09:10 94 H 95 03/05/20 09:07 91 H 94 03/05/20 09:05 88 97/52 L 94 03/05/20 09:00 86 95 03/05/20 08:59 96 H 94 03/05/20 08:55 88 94 03/05/20 08:53 94 H 94 03/05/20 08:52 93 H 98/51 L 03/05/20 08:50 100 H 97 03/05/20 08:49 98 H 93/55 L 03/05/20 08:45 84 95 03/05/20 08:44 83 81/46 L 94 03/05/20 08:40 80 94 03/05/20 08:38 80 94 03/05/20 08:36 80 88/49 L 03/05/20 08:35 76 94 03/05/20 08:30 79 94 03/05/20 08:25 75 94 03/05/20 08:21 74 88/52 L 03/05/20 08:20 84 94 03/05/20 08:15 78 94 03/05/20 08:10 76 94 03/05/20 08:07 75 94 03/05/20 08:06 76 90/51 L 03/05/20 08:05 76 94 03/05/20 08:00 78 94 03/05/20 07:57 74 94 03/05/20 07:55 77 94 03/05/20 07:51 73 91/53 L 92 03/05/20 07:50 79 94 03/05/20 07:45 74 94 03/05/20 07:44 74 94 03/05/20 07:40 79 94 03/05/20 07:35 82 95/53 L 94 03/05/20 07:30 78 96 03/05/20 07:29 76 94 03/05/20 07:25 81 96 03/05/20 07:20 98.4 F 83 20 97/52 L 96 03/05/20 07:15 80 94 03/05/20 07:10 78 94 03/05/20 07:09 78 94 03/05/20 07:07 77 99/50 L 03/05/20 07:05 84 96 03/05/20 07:00 84 20 95 03/05/20 06:55 85 98 03/05/20 06:51 98.1 F 77 100/56 L 03/05/20 06:50 88 97 03/05/20 06:45 74 95 03/05/20 06:40 71 95 03/05/20 06:36 75 95/54 L 03/05/20 06:35 75 94 03/05/20 06:30 78 16 95 03/05/20 06:28 78 94 03/05/20 06:25 80 95 03/05/20 06:20 78 97/54 L 94 03/05/20 06:16 77 94 03/05/20 06:15 76 96 03/05/20 06:11 80 94 Coding Level of Care Code None Diagnoses Encounter for induction of labor Z34.90
[2020-03-05] MEDS ORDERED: BUPIVACAINE 0.25% 30 ML VIAL ONE (18:30)
--- NOTE | 2020-03-05 18:56 | Communication Note ---
Date of Service: March 05, 2020 Called by nursing as patient having some increasing left sided pain associated with contraction. Patient also feels it is made worse by her femoral hernia. Blood pressures have been hovering in the high 90's (her baseline prior to is around 100 systolic). I decided to bolus only 4ml of 0.25% bupivicaine given concern for hypotension. Nurse also gave 10mg ephedrine during bolus to prevent blood pressure decrease. After 15 minutes her blood pressures remained in high 90's and pain was subsiding.
[2020-03-05] MEDS: OXYTOCIN 30 UNITS/500 ML BAG IV PRN (19:54)
--- NOTE | 2020-03-05 20:16 | Labor Progress Brief Note ---
Date of Service March 05, 2020 Subjective Pain somewhat improved after bolus but not at all gone, and now having more pressure. Assessment & Plan (1) Encounter for induction of labor: Attempted pushing, but patient does not move baby much with pushing and we are hoping to avoid a long and/or strenuous second stage to avoid worsening her hernia. The hernia is still soft, reducible and there is no bruising or erythema over it. We will labor down for a while if possible to limit the necessary pushing. Physical Exam Physical Exam: /+1 FHT Cat 2 with variables during most contractions but otherwise reassuring. [place] Q2-4 irreg Pit @ 30. Results & Data Vital Signs (Past 12 Hours) Vital Signs Temp Pulse Resp BP Pulse Ox 03/05/20 20:11 114 H 91 03/05/20 20:10 99 H 97 03/05/20 20:05 102 H 104/54 L 100 03/05/20 20:04 20 03/05/20 20:00 113 H 92 03/05/20 19:56 110 H 99/54 L 03/05/20 19:55 110 H 96 03/05/20 19:50 108 H 94 03/05/20 19:45 106 H 99/54 L 95 03/05/20 19:44 107 H 94 03/05/20 19:40 106 H 96 03/05/20 19:35 107 H 96 03/05/20 19:34 107 H 95/52 L 03/05/20 19:30 103 H 96 03/05/20 19:25 103 H 95/52 L 96 03/05/20 19:20 108 H 97 03/05/20 19:15 108 H 98 03/05/20 19:14 107 H 98/54 L 03/05/20 19:10 107 H 99 03/05/20 19:07 95 H 84/49 L 91 03/05/20 19:05 94 H 100 03/05/20 19:01 96 H 84/43 L 03/05/20 19:00 98.8 F 108 H 20 98 03/05/20 18:57 105 H 89 L 03/05/20 18:56 107 H 83/48 L 03/05/20 18:55 104 H 99 03/05/20 18:51 101 H 97/50 L 03/05/20 18:50 106 H 97 03/05/20 18:49 106 H 110/57 L 03/05/20 18:47 109 H 106/50 L 03/05/20 18:45 111 H 112/59 L 98 03/05/20 18:43 102 H 110/56 L 03/05/20 18:40 102 H 108/59 L 97 03/05/20 18:39 94 H 99/57 L 03/05/20 18:38 97 H 93/55 L 03/05/20 18:36 93 H 104/58 L 03/05/20 18:35 94 H 97 03/05/20 18:30 99 H 20 97 03/05/20 18:25 96 H 98 03/05/20 18:20 92 H 98/52 L 97 03/05/20 18:15 103 H 98 03/05/20 18:14 116 H 94 03/05/20 18:10 98 H 100 03/05/20 18:07 94 H 102/52 L 03/05/20 18:05 97 H 100 03/05/20 18:00 97 H 100 03/05/20 17:55 94 H 100 03/05/20 17:50 93 H 88/49 L 96 03/05/20 17:45 105 H 96 03/05/20 17:40 94 H 99 03/05/20 17:36 92 H 86/47 L 03/05/20 17:35 99 H 100 03/05/20 17:30 93 H 99 03/05/20 17:25 89 100 03/05/20 17:22 86 99/55 L 03/05/20 17:20 88 99 03/05/20 17:15 96 H 99 03/05/20 17:10 99 H 98 03/05/20 17:07 95 H 106/57 L 03/05/20 17:05 90 97 03/05/20 17:00 98.2 F 97 H 20 98 03/05/20 16:55 98 H 98 03/05/20 16:52 98 H 97/54 L 03/05/20 16:50 92 H 97 03/05/20 16:45 92 H 97 03/05/20 16:40 109 H 98 03/05/20 16:35 88 91/55 L 96 03/05/20 16:30 87 18 97 03/05/20 16:25 86 96 03/05/20 16:22 86 90/52 L 03/05/20 16:20 88 96 03/05/20 16:15 89 96 03/05/20 16:10 101 H 97 03/05/20 16:05 94 H 96/51 L 95 03/05/20 16:03 92 H 94 03/05/20 16:00 93 H 18 96 03/05/20 15:55 91 H 97 03/05/20 15:51 90 91/54 L 03/05/20 15:50 99 H 97 03/05/20 15:47 100 H 94 03/05/20 15:45 100 H 97 03/05/20 15:40 96 H 97 03/05/20 15:36 95 H 99/58 L 03/05/20 15:35 93 H 97 03/05/20 15:30 95 H 18 96 03/05/20 15:25 97 H 97 03/05/20 15:21 93 H 102/54 L 03/05/20 15:20 96 H 96 03/05/20 15:15 105 H 98 03/05/20 15:10 106 H 97 03/05/20 15:05 93 H 101/56 L 97 03/05/20 15:00 98.4 F 97 H 20 98 03/05/20 14:59 96 H 100/56 L 03/05/20 14:55 94 H 96 03/05/20 14:51 87 96/53 L 03/05/20 14:50 90 96 03/05/20 14:45 97 H 96 03/05/20 14:40 95 H 97 03/05/20 14:35 97 H 97/53 L 96 03/05/20 14:30 99 H 97 03/05/20 14:28 92 H 94 03/05/20 14:25 92 H 95 03/05/20 14:21 99.5 F 84 20 91/54 L 03/05/20 14:20 85 95 03/05/20 14:16 89 94 03/05/20 14:15 88 94 03/05/20 14:10 87 94 03/05/20 14:05 90 94/53 L 94 03/05/20 14:00 92 H 95 03/05/20 13:55 99 H 95 03/05/20 13:52 96 H 94 03/05/20 13:51 88 94/52 L 03/05/20 13:50 93 H 95 03/05/20 13:45 104 H 95 03/05/20 13:44 99 H 94 03/05/20 13:40 94 H 95 03/05/20 13:35 88 98/54 L 96 03/05/20 13:30 93 H 96 03/05/20 13:25 92 H 98 03/05/20 13:22 88 94/53 L 03/05/20 13:20 87 96 03/05/20 13:15 91 H 97 03/05/20 13:10 93 H 97 03/05/20 13:05 86 97/54 L 96 03/05/20 13:00 98 H 97 03/05/20 12:55 96 H 96 03/05/20 12:51 86 96/52 L 03/05/20 12:50 94 H 95 03/05/20 12:45 92 H 96 03/05/20 12:43 90 94 03/05/20 12:40 88 95 03/05/20 12:35 100 H 92/51 L 95 03/05/20 12:30 86 94 03/05/20 12:26 78 94 03/05/20 12:25 92 H 94 03/05/20 12:21 87 94 03/05/20 12:20 100.0 F H 83 20 95/54 L 95 03/05/20 12:16 88 94 03/05/20 12:15 92 H 94 03/05/20 12:10 92 H 94 03/05/20 12:06 87 93/54 L 03/05/20 12:05 90 94 03/05/20 12:01 100 H 92 03/05/20 12:00 91 H 94 03/05/20 11:55 99 H 94 03/05/20 11:52 87 96/54 L 03/05/20 11:50 99 H 94 03/05/20 11:49 92 H 94 03/05/20 11:45 101 H 94 03/05/20 11:43 98 H 94 03/05/20 11:40 92 H 94 03/05/20 11:35 93 H 98/52 L 94 03/05/20 11:33 95 H 94 03/05/20 11:30 93 H 94 03/05/20 11:25 107 H 94 03/05/20 11:24 95 H 94 03/05/20 11:21 95 H 93/50 L 03/05/20 11:20 98 H 94 03/05/20 11:19 94 H 94 03/05/20 11:16 99.5 F 20 03/05/20 11:15 99 H 93 03/05/20 11:14 93 H 94 03/05/20 11:10 89 94 03/05/20 11:06 91 H 92/52 L 94 03/05/20 11:05 91 H 94 03/05/20 11:00 92 H 94 03/05/20 10:57 89 94 03/05/20 10:55 94 H 94 03/05/20 10:51 99 H 94 03/05/20 10:50 96 H 98/54 L 93 03/05/20 10:45 91 H 94 03/05/20 10:40 91 H 94 03/05/20 10:36 83 94 03/05/20 10:35 81 95/52 L 93 03/05/20 10:30 93 H 93 03/05/20 10:25 89 94 03/05/20 10:22 89 94/50 L 03/05/20 10:20 90 94 03/05/20 10:19 95 H 94 03/05/20 10:15 90 94 03/05/20 10:12 90 94 03/05/20 10:10 99 H 95 03/05/20 10:05 94 H 101/55 L 94 03/05/20 10:00 97 H 94 03/05/20 09:55 99 H 95 03/05/20 09:54 98 H 94 03/05/20 09:50 95 H 100/54 L 97 03/05/20 09:46 96 H 94 03/05/20 09:45 92 H 95 03/05/20 09:41 97 H 94 03/05/20 09:40 95 H 95 03/05/20 09:36 96 H 106/53 L 03/05/20 09:35 100 H 95 03/05/20 09:30 94 H 96 03/05/20 09:26 102 H 94 03/05/20 09:25 96 H 94 03/05/20 09:21 99.3 F 88 20 94/51 L 94 03/05/20 09:20 97 H 95 03/05/20 09:16 103 H 94 03/05/20 09:15 97 H 95 03/05/20 09:10 94 H 95 03/05/20 09:07 91 H 94 03/05/20 09:05 88 97/52 L 94 03/05/20 09:00 86 95 03/05/20 08:59 96 H 94 03/05/20 08:55 88 94 03/05/20 08:53 94 H 94 03/05/20 08:52 93 H 98/51 L 03/05/20 08:50 100 H 97 03/05/20 08:49 98 H 93/55 L 03/05/20 08:45 84 95 03/05/20 08:44 83 81/46 L 94 03/05/20 08:40 80 94 03/05/20 08:38 80 94 03/05/20 08:36 80 88/49 L 03/05/20 08:35 76 94 03/05/20 08:30 79 94 03/05/20 08:25 75 94 03/05/20 08:21 74 88/52 L 03/05/20 08:20 84 94 03/05/20 08:15 78 94 Coding Level of Care Code None Diagnoses Encounter for induction of labor Z34.90
[2020-03-05] MEDS ORDERED: miSOPROStoL 200 MCG TAB ONE (21:43)
--- NOTE | 2020-03-05 21:45 | Delivery Summary ---
Vaginal Delivery Summary Date of Service March 05, 2020 Vaginal Delivery Summary DIAGNOSES: 1. [place] intrauterine at 39w1d gestation. 2. Induction of labor. 3. Group B Streptococcus Neg. PROCEDURE: Spontaneous vaginal delivery without laceration. SURGEON: Natalie Christina MD. CLIENT SERVER DEVELOPER: None. ESTIMATED BLOOD LOSS: 300 mL. COMPLICATIONS: None. PLACENTA: Spontaneous and intact with a 3-vessel cord. DISPOSITION: Stable to labor and delivery. DESCRIPTION: The patient pushed well and brought the head to in OA position. During pushing, pressure was applied to the left labia majora / mons / femoral canal to reduce the patient's hernia and provide counterpressure. The infant's head was allowed to deliver with contraction force and no further active pushing, with the perineum protected during this time. The shoulders delivered easily with a maternal pushing effort. There was no nuchal cord. The left shoulder was anterior. The shoulders and body delivered without any difficulty, and the was placed on the maternal abdomen. It was vigorous and moving all extremities, and making respiratory efforts. The cord was doubly clamped by the MD and then cut by the FOB. The placenta delivered spontaneously and was noted to be intact and with a 3VC. The cervix, vagina and perineum were examined and were found to be without defect requiring repair. The fundus was firm and lochia minimal immediately after delivery. Because of the prolonged use of high doses of pitocin, 1000mcg rectal cytotec was administered to prevent hemorrhage.
[2020-03-05] MEDS ORDERED: DIPHTHERIA/TETANUS/PERTUSSIS 0.5 ML SYR/VIAL IM ONE (21:48)
[2020-03-05] MEDS ORDERED: ACETAMINOPHEN 325 MG TAB PO PRN (21:48)
[2020-03-05] MEDS ORDERED: BENZOCAINE 20% AER SPR 82.5 GM CAN EXT PRN (21:48)
[2020-03-05] MEDS ORDERED: OXYTOCIN 30 UNITS/500 ML BAG IV PRN (21:48)
[2020-03-05] MEDS ORDERED: OXYCODONE/ACETAMINOPHEN 5mg/325mg TAB PO PRN (21:48)
[2020-03-05] MEDS ORDERED: HYDROCORTISONE ACETATE 25 MG SUPP PR PRN (21:48)
[2020-03-05] MEDS ORDERED: miSOPROStoL 200 MCG TAB PR ONE (21:48)
[2020-03-05] MEDS ORDERED: SUPERCREAM 0.870% 15 GM JAR EXT PRN (21:48)
[2020-03-06] MEDS: IBUPROFEN 600 MG TAB PO PRN ×5 (01:25→23:28)
--- NOTE | 2020-03-06 06:21 | Anesthesia Procedure Note ---
Date of Service March 06, 2020 Anesthesia Post Epidural Note Vital Signs Vital Signs: Temp Pulse Resp BP Pulse Ox 37.4 C 89 20 99/54 L 97 03/06/20 03:47 03/06/20 03:47 03/06/20 03:47 03/06/20 03:47 03/05/20 21:40 Pain Intensity Bilateral Lower Abdomen: Pain Intensity: 4 Left Abdomen: Pain Intensity: 4 Perineal: Pain Intensity: 2 Notes Mental Status: alert / awake / arousable and participated in evaluation Patient Amnestic to Procedure: No Nausea / Vomiting: adequately controlled Pain: adequately controlled Airway Patency, RR, SpO2: stable & adequate BP & HR: stable & adequate Hydration State: stable & adequate Neuraxial Anesthesia: was administered and sensory block is resolving Anesthetic Complications: no major complications apparent and Pt Satisfied with anesthetic care Epidural: Removed without complications and With tip intact
[2020-03-06 06:29] LABS: Hematocrit (blood only) 30.5 % (37-47); Hemoglobin 10.6 g/dL (12.0-16.0); Mean Corpuscular Hgb Conc 34.8 g/dL (32-36); Mean Corpuscular Volume 89.2 fL (80-100); Mean Platelet Volume 9.7 fL (7.4-10.4); Platelet Count 156 K/uL (130-400); RDW Standard Deviation 45.9 fL (36.4-46.3); Red Blood Count 3.42 M/uL (4.2-5.4); White Blood Count 15.79 K/uL (4.8-10.8)
--- NOTE | 2020-03-06 06:47 | Obstetrical Progress Note ---
Date of Service March 06, 2020 Assessment & Plan (1) state: Routine PP care. Patient is pleased to see her hernia get smaller, and feels she can wait to see [facility] surgeons again about this as planned. Subjective Ambulation: ambulating normally Voiding: no voiding problems Passing Gas:: Yes Diet Tolerance:: regular diet Lochia:: Small Feeding Type:: breast feeding Physical Exam Constitutional WD/WN, vitals as above Eyes PERRL, conjunctivae normal, anicteric sclerae Neck normal visual inspection Respiratory normal respiratory effort and able to speak in complete sentences; no respiratory distress and no labored breathing Cardiovascular Rate/Rhythm: regular rate and regular rhythm Extremities: no edema Chest (Breasts) Chest: normal inspection of chest Gastrointestinal (Abdomen) Inspection/Auscultation: abdomen normal to inspection Soft, postgravid. Hernia smaller than yesterday but remains present Psychiatric A+Ox3, euthymic affect Genitourinary OB Exam Abdomen: + fundal height Fundus: + firm and + relation to umbilicus (fundus just below umbilicus); not tender Results & Data Vital Signs (Past 12 Hours) Vital Signs Temp Pulse Pulse Resp BP BP Pulse Ox 03/06/20 03:47 99.3 F 89 20 99/54 L 03/06/20 03:34 89 99/54 L 03/06/20 00:25 99.9 F H 20 03/06/20 00:23 104 H 114/73 03/06/20 00:00 98 H 118/60 03/05/20 23:45 107 H 109/63 03/05/20 23:30 99.9 F H 104 H 18 114/73 03/05/20 23:15 108 H 114/68 03/05/20 23:07 104 H 114/58 L 03/05/20 23:00 98.8 F 106 H 20 118/58 L 03/05/20 22:45 104 H 20 114/58 L 03/05/20 22:30 107 H 18 109/55 L 03/05/20 22:15 101 H 16 112/59 L 03/05/20 22:00 112 H 18 110/57 L 03/05/20 21:45 99.3 F 116 H 20 107/58 L 03/05/20 21:40 122 H 97 03/05/20 21:35 110 H 75 L 03/05/20 21:32 113 H 105/51 L 03/05/20 21:30 116 H 99 03/05/20 21:29 100 H 89 L 03/05/20 21:25 104 H 99 03/05/20 21:24 107 H 105/58 L 03/05/20 21:23 106 H 92 03/05/20 21:20 109 H 99 03/05/20 21:15 102 H 99/55 L 99 03/05/20 21:10 96 H 97 03/05/20 21:06 96 H 91/52 L 03/05/20 21:05 98 H 97 03/05/20 21:00 98.2 F 98 H 18 98 03/05/20 20:56 102 H 93/54 L 03/05/20 20:55 102 H 97 03/05/20 20:50 106 H 98 03/05/20 20:45 101 H 89/50 L 95 03/05/20 20:40 104 H 97 03/05/20 20:36 105 H 89/50 L 03/05/20 20:35 121 H 93 03/05/20 20:30 99 H 20 97 03/05/20 20:25 102 H 94/55 L 96 03/05/20 20:20 102 H 98 03/05/20 20:15 102 H 102/54 L 98 03/05/20 20:11 114 H 91 03/05/20 20:10 99 H 97 03/05/20 20:05 102 H 104/54 L 100 03/05/20 20:04 20 03/05/20 20:00 113 H 92 03/05/20 19:56 110 H 99/54 L 03/05/20 19:55 110 H 96 03/05/20 19:50 108 H 94 03/05/20 19:45 106 H 99/54 L 95 03/05/20 19:44 107 H 94 03/05/20 19:40 106 H 96 03/05/20 19:35 107 H 96 03/05/20 19:34 107 H 95/52 L 03/05/20 19:30 103 H 20 96 03/05/20 19:25 103 H 95/52 L 96 03/05/20 19:20 108 H 97 03/05/20 19:15 108 H 98 03/05/20 19:14 107 H 98/54 L 03/05/20 19:10 107 H 99 03/05/20 19:07 95 H 84/49 L 91 03/05/20 19:05 94 H 100 03/05/20 19:01 96 H 84/43 L 03/05/20 19:00 98.8 F 108 H 20 98 03/05/20 18:57 105 H 89 L 03/05/20 18:56 107 H 83/48 L 03/05/20 18:55 104 H 99 03/05/20 18:51 101 H 97/50 L 03/05/20 18:50 106 H 97 03/05/20 18:49 106 H 110/57 L 03/05/20 18:47 109 H 106/50 L 03/05/20 18:45 111 H 112/59 L 98
[2020-03-06] MEDS: PRENATAL VITAMIN 1 TAB PO SCH (09:33)
[2020-03-06] MEDS: DOCUSATE SODIUM 100 MG CAP PO SCH ×2 (09:33→19:37)
--- NOTE | 2020-03-07 07:18 | Obstetrical Progress Note ---
Date of Service March 07, 2020 Assessment & Plan (1) state: meets criteria, home Subjective Ambulation: ambulating normally Diet Tolerance:: regular diet Lochia:: Small Feeding Type:: breast feeding Current Pain Level(1-10): 1 Physical Exam Constitutional WD/WN, vitals as above Genitourinary normal external appearance (Ext neg) Results & Data Vital Signs (Past 12 Hours) Vital Signs Temp Pulse Pulse Resp BP BP 03/06/20 23:30 98.4 F 73 73 18 98/63 L 98/63 L 03/06/20 19:21 80 103/54 L 03/06/20 19:20 98.6 F 80 18 103/54 L
[2020-03-07] MEDS: DOCUSATE SODIUM 100 MG CAP PO SCH (09:49)
[2020-03-07] MEDS: PRENATAL VITAMIN 1 TAB PO SCH (09:49)
[2020-03-07] MEDS: IBUPROFEN 600 MG TAB PO PRN (09:49)
== END 2020-03-07 13:25 | disposition home or self-care (01) | DRG 807 ==
LOC: 4S1 09:53 → 4S2 15:05 → 4S1 20:06 → 4S2 03-06 21:58

== ENCOUNTER 2025-01-03 19:14 | Inpatient (IN) ==
[2025-01-03] MEDS ORDERED: LIDOCAINE 1% LOCAL 20 ML VIAL INFIL PRN (20:34)
[2025-01-03 21:02] LABS: Hematocrit (blood only) 36.1 % (37.0-47.0); Hemoglobin 12.7 g/dl (12.0-16.0); Mean Corpuscular Hemoglobin 30.7 pg (25.0-34.0); Mean Corpuscular Hgb Conc 35.2 g/dL (32.0-36.0); Mean Corpuscular Volume 87.2 fL (80.0-100.0); Mean Platelet Volume 10.4 fL (9.4-12.4); Platelet Count 174 K/uL (130-400); RDW Coefficient of Variation 12.5 % (11.5-14.5); RDW Standard Deviation 39.9 fL (36.4-46.3); Red Blood Count 4.14 M/uL (4.20-5.40); White Blood Count 8.97 K/ul (4.8-10.8)
--- NOTE | 2025-01-03 21:09 | History & Physical Report ---
Date of Service January 03, 2025 Assessment & Plan Admission and Anticipated Discharge Date Admission Date: January 03, 2025 History of Present Illness Chief Complaint: ruptured membranes Primary Care Provider: Annette See, 29 F P1001 at 39 weeks admitted with SROM clear fluid and onset of labor. GBS is negative Allergies Allergy/AdvReac Type Severity Reaction Status Date / Time Penicillins Allergy Severe Rash/Hives Verified 06/08/20 11:35 amoxicillin Allergy Unknown Rash Verified 06/08/20 11:35 Home Medications Medication Instructions Recorded Confirmed Type docosahexaenoic acid 200 mg capsule 200 mg PO DAILY 03/10/20 01/03/25 History vit no.95-ferrous 1 tab PO DAILY 03/10/20 01/03/25 History fumarate 28 mg-folic acid 800 mcg tablet ( Formula) Vitamin B-12 1,000 mcg PO DAILY 01/03/25 01/03/25 History Patient History Medical History Varicella vaccine Painful intercourse UTI (urinary tract infection) Ovarian cyst Encounter for anatomic survey Surgical History S/P wisdom tooth extraction S/P wrist surgery Family History Mother Kidney stone Sister Thyroid disease Ovarian cyst Aunt Ovarian cyst Cystic kidney disease Social History Smoking Status: Never smoker Second Hand Exposure: No; Hx Alcohol Use: No Hx Substance Use: No Preferred Language: Icelandic Communication Ability: Effective 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 Required: No Beliefs That Will Affect Care: Pentecostalism Pentecostalism Beliefs: Nondenominational marital status: marital status details: Trevon Carver (27) [phone] Current Living Situation: Spouse and Family current occupational status: employed 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 [employer] Other Information That Helps Us Care for You: No Feels Safe at Home: Yes Safety Concerns: Feels Safe At This Time Assistive Devices: Contacts 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 Review of Systems All systems reviewed & are unremarkable except as noted in HPI & below Physical Exam Constitutional: WD/WN, vitals as above Eyes: PERRL, conjunctivae normal, anicteric sclerae Respiratory: normal respiratory effort, lungs clear to auscultation Cardiovascular: Rate/Rhythm: regular rate and regular rhythm Gastrointestinal (Abdomen): Inspection/Auscultation: abdomen normal to inspection Musculoskeletal: Extremities: extremities normal to inspection Psychiatric: A+Ox3, euthymic affect Genitourinary: no vaginal lesions, no adnexal mass Manual OB Exam: + cervical dilation 8 cm, + cervical effacement 100%, + station -1 and + amniotic fluid clear OB Exam Monitor Tracing: + external FHT monitor used, + external uterine monitor used, + category I and + normal FHT variability Results & Data Vital Signs (Past 12 Hours) Vital Signs Temp Pulse Resp BP 01/03/25 19:39 36.7 C 18 01/03/25 19:32 75 104/59 L
[2025-01-03] MEDS: LACTATED RINGER'S 1,000 ML IV PRN (21:25)
[2025-01-03] MEDS: LIDOCAINE 2%/EPINEPHRINE 1:200,000 20 ML PF ONE (21:26)
[2025-01-03] MEDS: fentANYL 2 MCG/ML BUPIVacaine 0.125%-NSS 100ML BAG ONE (21:26)
[2025-01-03] MEDS: BUPIVACAINE 0.25% PF 30 ML VIAL ONE (21:26)
--- NOTE | 2025-01-03 21:38 | Anesthesiology Consultation ---
Date of Service January 03, 2025 Assessment & Plan Chart Review Chart Review: Acceptable Risk for Labor Epidural Consults Requested none History Height/Weight Height: 5 ft 6 in Weight: 77.111 kg Allergies Allergy/AdvReac Type Severity Reaction Status Date / Time Penicillins Allergy Severe Rash/Hives Verified 06/08/20 11:35 amoxicillin Allergy Unknown Rash Verified 06/08/20 11:35 Medications Home Medications Medication Instructions Recorded Confirmed Last Taken docosahexaenoic acid 200 mg capsule 200 mg PO DAILY 03/10/20 01/03/25 01/03/25 09:00 vit no.95-ferrous 1 tab PO DAILY 03/10/20 01/03/25 01/03/25 09:00 fumarate 28 mg-folic acid 800 mcg tablet ( Formula) Vitamin B-12 1,000 mcg PO DAILY 01/03/25 01/03/25 01/03/25 09:00 Past Medical History Medical History Varicella vaccine Painful intercourse UTI (urinary tract infection) Ovarian cyst Encounter for anatomic survey Past Family History Family History Mother Kidney stone Sister Thyroid disease Ovarian cyst Aunt Ovarian cyst Cystic kidney disease Past Surgical History Surgical History S/P wisdom tooth extraction S/P wrist surgery Social History Smoking Status: Never smoker tobacco type: cigarettes Hx Alcohol Use: No Hx Substance Use: No substance use type: does not use Physical Exam Vital Signs Last Vital Signs Temp 36.7 C 01/03/25 19:39 Pulse 88 01/03/25 21:32 Resp 18 01/03/25 19:39 BP 110/65 01/03/25 21:30 Pulse Ox 100 01/03/25 21:32 Testing Laboratory Results 01/03/25 20:48
[2025-01-03] MEDS: OXYTOCIN 30 UNITS/NSS 30 UNITS/500 ML BAG IV PRN (22:13)
[2025-01-03] MEDS ORDERED: HYDROCORTISONE ACETATE 25 MG SUPP PR PRN (22:27)
[2025-01-03] MEDS ORDERED: OXYTOCIN 30 UNITS/NSS 30 UNITS/500 ML BAG IV PRN (22:27)
[2025-01-03] MEDS ORDERED: BENZOCAINE 20% SPRY 85 APPLN/85 GM CAN EXT PRN (22:27)
--- NOTE | 2025-01-03 22:29 | Delivery Summary ---
Vaginal Delivery Summary Date of Service January 03, 2025 Vaginal Delivery Summary live female YESSICA over intact perineum with delayed cord clamping and Apgars 8/9 weight pending. Cord blood obtained followed by spontaneous delivery of intact placenta. No tears. QBL 50 ml. Final sponge and instrument count are correct. Mom and baby stable.
--- NOTE | 2025-01-03 23:27 | Anesthesia Procedure Note ---
Date of Service January 03, 2025 Anesthesia Post Epidural Note Vital Signs Vital Signs: Temp Pulse Resp BP Pulse Ox 36.7 C 68 18 112/64 85 L 01/03/25 19:39 01/03/25 23:15 01/03/25 19:39 01/03/25 23:15 01/03/25 22:10 Notes Mental Status: alert / awake / arousable Nausea / Vomiting: adequately controlled Pain: adequately controlled Airway Patency, RR, SpO2: stable & adequate BP & HR: stable & adequate Hydration State: stable & adequate Neuraxial Anesthesia: was administered and sensory block is resolving Anesthetic Complications: no major complications apparent and Pt Satisfied with anesthetic care Epidural: Removed without complications and With tip intact
[2025-01-04] MEDS: IBUPROFEN 600 MG TAB PO PRN (01:23)
[2025-01-04] MEDS: fentaNYL citrate PF 100 MCG/2 ML VIAL ONE (01:23)
[2025-01-04] MEDS: ePHEDrine sulfate 50 MG/ML AMP ONE (01:23)
[2025-01-04] MEDS: DIPHTHER/TETAN/PERTUS Vaccine (Tdap, Adol/Adult) 0.5mL IM ONE (01:24)
[2025-01-04] MEDS: SODIUM CHLORIDE 0.9% PF INJ 10 ML VIAL ONE (01:24)
--- OUTSIDE RECORDS SUMMARY | 2025-01-04 05:31 | External Medical Summary | Summary of Care ---
Author Name Unknown Organization [facility] Address [address] [place] [address] Phone [phone] Care Team Providers Care Signs And Displays Salesperson Name Role Phone Annette See DO Primary Care Provider Reason for Visit * Reason Onset Date Comments Anemia Follow-Up 12/11/2024 Encounter Details Date Type Department Care Team (Late st Contact Info) Description 12/11/2024 10:00 AM [facility] Pharmacy, [place] [address] [place] [address] Clinic, Anemia [address] [place], [place] [id number] Antepartum anemia complicating * Allergies Active Allergy Reactions Criticality Noted Date Comments Amoxicillin 02/21/2006 rash documented as of this encounter (statuses as of 12/11/2024) Medications 28-0.8 MG Oral Tablet Take by mouth. Active DHA 200 MG Oral Capsule Take by mouth. Active Iron 325 (65 Fe) MG Oral Tablet Take by mouth. Active Vitamin B-12 1000 MCG Oral Tablet (Cyanocobalamin)I ndications:Antepa rtum anemia complicating Take 1 Tablet by mouth in the morning. 30 Tablet 5 11/19/2024 Active documented as of this encounter (statuses as of 12/11/2024) Active Problems Problem Noted Date Diagnosed Date Iron deficiency anemia 11/28/2024 Antepartum anemia complicating 024 Overview (10/17/2024): Hgb 10.8 with third tri labs Recommended IV iron based on OB protocol. Pt declined, opted for start of PO iron Recheck CBC 32-33 wks Rh negative status during 06/04/2024 Overview (11/18/2024): Declined RhoGAM, FOB is rh neg. See scanned report. Encounter for supervision of other normal , unspecified trimester 06/03/2024 Overview (06/03/2024): Considering home Thrombophlebitis 06/03/2024 Overview (06/03/2024): Left inguinal thrombophlebitis after last delivery, same area of inguinal hernia. Was on lovenox for 6 weeks pelvic thrombophlebitis 06/18/2020 Allergic urticaria 02/21/2006 Allergic rhinitis 02/21/2006 [facility] ALLRG CONJUNCTIV NEC 02/21/2006 Estimated Date of Delivery Comme nts Yes 01/01/2025 Based on last me nstrual period of 03/27/2024 documented as of this encounter (statuses as of 12/11/2024) Resolved Problems Problem Noted Date Diagnosed Date Resolved Date Encounter for insertion of Mirena IUD 06/18/2020 06/18/2020 IUD (intrauterine device) in place 06/18/2020 11/18/2024 Overview (06/18/2020): Mirena Urticaria 02/21/2006 documented as of this encounter (statuses as of 12/11/2024) Immunizations Name Administration Dates Next Due Seasonal Influenza, PF, 6 M & above, IM , (FluLaval or Fluzone) 07/26/2019 TDAP (age 10 and older)(Boostrix) 06/15/2018 documented as of this encounter Social History Tobacco Use Types Packs/Day Years Used Date Smoking Tobacco: Never Smokeless Tobacco: Never Comments:passive smoke from sister Alcohol Use Standard Drinks/Week Comments Not Currently 0 (1 standard drink = 0.6 oz pur e alcohol) PHQ-2 Answer Date Recorded PHQ-2 Score 0 03/17/2020 Hunger Vital Sign Answer Date Recorded Within the past 12 months, y ou worried that your food would run out before you got the money to buy more. Never true 08/15/20 24 Within the past 12 months, t he food you bought just didn't last and you didn't have money to get more. Never true 08/15/2024 [place] Depression Scale Answer Date Recorded [place] Depression Scale Total 0 11/18/2024 The thought of harming myself has occurred to me . Never 11/18/2024 Childcare Answer Date Recorded Do you feel overwhelmed with taking care of a child, family member or friend? No 08/15/2024 Does your family need help f inding childcare? (Household - for ages 0-17 years) Not on file 08/15/2024 Clothing Answer Date Recorded Have you been unable to get clothing when it was really needed? No 08/15/2024 Is your family able to get c lothes or diapers when needed? (Household - for ages 0-17 years) Not on file 08/15/2024 Personal Safety Answer Date Recorded Do you feel unsafe or have concerns for your saf ety? No 08/15/2024 Do you have concerns for you r family's safety? (Household - for ages 0-17 years) Not on file 08/15/2024 Utilities Answer Date Recorded Do you have trouble paying y our heating, water, or electric bill? No 08/15/2024 Is your family able to pay t he heat, water, or electric bill? (Household - for ages 0-17 years) Not on file 08/15/2024 Does your family have access to good internet? (Household - for ages 0-17 years) Not on file 08/15/2024 Employment Status Answer Date Recorded Are you unemployed or without regular income? No 08/15/2024 Does the household have a re gular source of income? (Household - for ages 0-17 years) Not on file 08/15/2024 Social Connections Answer Date Recorded How often do you feel lonely or isolated from th ose around you? Never 08/15/2024 Financial Resource Strain Answer Date R ecorded Do you have any trouble payi ng for your medications, or do you think you might in the future? No 08/15/2024 Does your family have troubl e paying for medicine? (Household - for ages 0-17 years) Not on file 08/15/2024 Transportation Needs Answer Date Record ed READ ONLY Do you have troubl e getting a ride to medical visits or work? Never True 08/15/2024 Does your family have a hard time getting a ride to doctors visits? (Household - for ages 0-17 years) Not on file 08/15/2024 Has lack of transportation k ept you from medical appointments, meetings, work, or from getting things needed for daily living? Check all that apply. No 08/15/2024 Do you (or your family) have trouble finding or paying for a ride (transportation)? (Household - for ages 0-17 years) Not on file 08/15/2024 Housing Stability Answer Date Recorded Do you currently live in a s helter or have no steady place to sleep at night? No 08/15/2024 READ ONLY Do you think you a re at risk of becoming homeless? No 08/15/2024 Does your family worry about paying for your home or becoming homeless? (Household - for ages 0-17 years) Not on file 1 Are you homeless or worried that you might be in the future? No 08/15/2024 Are you (or your family) mika eless or worried that you might be in the future? (Household - for ages 0-17 years) Not on file Food Insecurity Answer Date Recorded Do you need food for this week? No 08/15/2024 Are you able to get enough f ood for your family? (Household - for ages 0-17 years) Not on file 08/15/2024 Does your family need food t his week? (Household - for ages 0-17 years) Not on file 08/15/2024 Do you always have enough fo od for your family? (Household - for ages 0-17 years) Not on file 08/15/2024 Food Insecurity Answer Date Recorded Within the past 12 months, y ou worried that your food would run out before you got the money to buy more. Never true 08/15/20 24 Within the past 12 months, t he food you bought just didn't last and you didn't have money to get more. Never true 08/15/2024 Do you need food for this week? 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 Patient received Infed 1gm x 1 on 12/06/24. Patient reports all went well. GA: 37w0d Estimated Date of Delivery: 01/01/25 Given proximity to patient's due date, will not repeat any additional lab work. [facility]emia Clinic will sign off. Thank you for allowing us to participate in the care of this patient. Thanks, Carey Bunch [facility] Clinical Pharmacist documented in this encounter Plan of Treatment Upcoming Encounters Date Type Department Care Team (Late st Contact Info) Description 12/17/2024 8:45 AM EST Office [facility] [address] [place] [address] [place], [place] [address] [place] [id number] Health Maintenance Due Date Last Done Comments HPV (Gardasil) Vaccine (2 - 3-dose series) 06/10/2008 05/13/2008 Depression Screening 03/17/2021 03/17/2020 COVID-19 Vaccine ( season) 2024 Influenza Vaccine (FLU shot) (#1) 2024 08/06/2019, 07/26/2019 Pap Smear 06/03/2027 06/03/2024, 10/0 11/2018, 06/23/2016 DTap/Tdap Vaccines (7 - Td or Tdap) 06/15/2028 06/15/2018, 09/23/1997, 07/18/1994, Additional history exists Cervical Cancer Screening 06/03/2029 HPV/Co-Test 06/03/2029 06/03/2024 MENINGOCOCCAL (MENACTRA/MENVEO) Aged Out 07/10/2006 No longer eligible based on patient's age to complete this topic Pneumococcal Vaccine: Pediatrics (0 to 5 Years) and At-Risk Patients (6 to 18 Years and 19+ Years) Aged Out No longer eligib le based on patient's age to complete this topic documented as of this encounter Medical Devices Implanted Type Area Featheredger And Reducer Machine Device Identifier Shelf Expiration Date Model / Serial / Lot Mesh 3dmax 3.1x5.3in Lft Med - [id number] Implanted:Qty: 1 on 12/04/2020 by Josue Farr MD at OR [facility] Left: Groin CR BARD : DAVOL 01/03/2025 [id number] / / [id number] documented as of this encounter Visit Diagnoses Diagnosis Antepartum anemia complicating - Primary Anemia, antepartum documented in this encounter Advance Directives * Full Code (Latest Code Status on File) Date Activated Date Inactivated Comments 12/04/2020 12:25 PM 12/04/2020 8:17 PM This order reflects the patients wishes and were consensually agreed upon. Care Teams Signs And Displays Salesperson Relationship Specialty Start Date End Date Annette See DO [address] [place] [address] PCP - General Family Medicine 11/04/19 documented as of this encounter
--- OUTSIDE RECORDS SUMMARY | 2025-01-04 05:31 | External Medical Summary | Summary of Care ---
Author Name Unknown Organization [facility] Address [address] [facility] [address] Phone [phone] Care Team Providers Care Machine Cementer Name Role Phone Annette See DO Primary Care Provider Reason for Visit * Reason Comments Infusion Infed Encounter Details Date Type Department Care Team (Latest Contact Info) Description 12/06/2024 9:30 AM EST Hem/Onc Treatment Hematology/Oncology Treatment, [place] [address] [place] [address] Domonique, Chair [address] Hem Onc Scene [address] [place] [address] Antepartum anemia complicating *; Iron deficiency anemia, unspecified iron deficiency anemia type Allergies Active Allergy Reactions Criticality Noted Date Comments Amoxicillin 02/21/2006 rash documented as of this encounter (statuses as of 12/15/2024) Medications 28-0.8 MG Oral Tablet Take by mouth. Active DHA 200 MG Oral Capsule Take by mouth. Active Iron 325 (65 Fe) MG Oral Tablet Take by mouth. Active Vitamin B-12 1000 MCG Oral Tablet (Cyanocobalamin)I ndications:Antepa rtum anemia complicating Take 1 Tablet by mouth in the morning. 30 Tablet 5 11/19/2024 Active documented as of this encounter (statuses as of 12/15/2024) Active Problems Problem Noted Date Diagnosed Date [...] as of this encounter (statuses as of 12/15/2024) Resolved Problems Problem Noted Date Diagnosed Date Resolved Date Encounter for insertion of Mirena IUD 06/18/2020 06/18/2020 IUD (intrauterine device) in place 06/18/2020 11/18/2024 Overview (06/18/2020): Mirena Urticaria 02/21/2006 documented as of this encounter (statuses as of 12/15/2024) Immunizations Name Administration Dates Next Due Seasonal [...] money to get more. 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 After approx.15 min patient indicated relief, note vs flow sheet. Patient tolerated infusion without issue. PIV removed intact. Goals: Patient will remain free from injury. Possible barriers to meeting goals: Ambulating with IV pole Stability of the patient: Moderately stable - low risk of patient condition declining or worsening Summary regarding today's goals: Met: Patient remained free from harm. Pt discharged in stable condition. * Nikki Sandoval RN - 12/06/2024 9:57 AM EST Chair 3 Patient here for infusion. Patient oriented to department and med. PIV started with brisk blood return. Patient instructed on use of heat in chair. Patient shown how to operate the heat function of the chair and to alert nursing staff if the chair feels too warm. Patient instructed on the risk of potential piedra while using the heat function. Safety and Risk for Injury Patient will remain free from injury. Ensure appropriate safety devices are available. Provide and maintain safe environment. documented in this encounter Plan of Treatment Upcoming Encounters Date Type Department Care Team (Late st Contact Info) Description 12/17/2024 8:45 AM EST [facility] [address] [place] [address] [place], [place] [address] [place] [phone] Health Maintenance Due Date Last Done Comments HPV (Gardasil) Vaccine (2 - 3-dose series) 06/10/2008 05/13/2008 Depression Screening 03/17/2021 03/17/2020 COVID-19 Vaccine ( season) 2024 Influenza Vaccine (FLU shot) (#1) 2024 08/06/2019, 07/26/2019 Pap Smear 06/03/2027 06/03/2024, 1011/2018, 06/23/2016 DTap/Tdap Vaccines (7 - Td or [...] this encounter Medical Devices Implanted Type Area Database Programmer Analyst Device Identifier Shelf Expiration Date Model / Serial / Lot Mesh 3dmax 3.1x5.3in Lft Med - [id number] Implanted:Qty: 1 on 12/04/2020 by Josue Farr MD at OR [facility] Left: Groin CR BARD : DAVOL 01/03/2025 [id number] / / [id number] documented as of this encounter Visit Diagnoses Diagnosis Antepartum anemia complicating - Primary Anemia, antepartum Iron deficiency anemia, unspecified iron deficiency anemia type documented in this encounter Administered Medications Inactive Administered Medications - up to 3 most recent administrations Medication Order MAR Action Action Date Dose Rate Site Iron Dextran (Infed) 975 mg in NSS 250 mL INFUSION 975 mg, IV Piggyback, ONCE, 1 dose, On Mon12/06/24 at 1100, Administer over 1 Hours, - Administer iron dextran infusion bag over 1 hour - Monitor for infusion reactions with vitals at 30 minutes and 60 minutes after starting the infusion. - If patient develops sign/symptoms of reaction or vital signs outside normal limits: 1) STOP infusion 2) CONTACT physicianIndications:Antepa rtum anemia complicating ,Iron deficiency anemia, unspecified iron deficiency anemia type Start Infusion 12/06/2024 10:19 AM EST 975 mg 274.5 mL/hr Iron Dextran (Infed) IV Push TEST DOSE 25 mg IV Push, Administer over 0.5 Minutes, -Educate patient on signs/symptoms of infusion reaction -Administer 25 mg test dose of iron dextran before infusion bag -Observe patient for signs/symptoms of reaction with vital signs before test dose, then at 15 minutes after administering the test dose -If patient tolerates test dose with no reaction, proceed with iron dextran infusion -HOLD infusion and contact physician immediately if patient reacts to test dose, ONCE, 1 dose, On Mon12/06/24 at 1045Indications:Antepartum anemia complicating ,Iron deficiency anemia, unspecified iron deficiency anemia type Given 12/06/2024 9:48 AM EST 25 mg NSS infusion Intravenous, at 50 mL/hr, PRN, Starting on Mon12/06/24 at 1045, Until Mon12/06/24 at 1544, Maintenance lineIndications:Antepartum anemia complicating ,Iron deficiency anemia, unspecified iron deficiency anemia type Start Infusion 12/06/2024 9:47 AM EST 50 mL/hr documented in this encounter Advance Directives * Full Code (Latest Code Status on File) Date Activated Date Inactivated Comments 12/04/2020 12:25 PM 12/04/2020 8:17 PM This order reflects the patients wishes and were consensually agreed upon. Care Teams Machine Cementer Relationship Specialty Start Date End Date Annette See DO [address] [place] [address] PCP - General Family Medicine 11/04/19 documented as of this encounter
--- OUTSIDE RECORDS SUMMARY | 2025-01-04 05:31 | External Medical Summary | Summary of Care ---
Author Name Unknown Organization [facility] Address [address] [facility] [place] [address] Phone [phone] Care Team Providers Care Sealing Machine Operator Name Role Phone Annette See DO Primary Care Provider Reason for Visit * Reason Comments Return Visit Encounter Details Date Type Department Care Team (Late st Contact Info) Description 12/10/2024 10:15 AM EST Office Visit Gynecology/Obstetric s [place] [address] [place] [address] Noelle Schaefer CRNP [address] [place] [phone] Encounter for supervision of other normal , third trimester*; Thrombophlebitis; Rh negative, antepartum; Antepartum anemia complicating Allergies Active Allergy Reactions Criticality Noted Date Comments Amoxicillin 02/21/2006 rash documented as of this encounter (statuses as of 12/10/2024) Medications 28-0.8 MG Oral Tablet Take by mouth. Active DHA 200 MG Oral Capsule Take by mouth. Active Iron 325 (65 Fe) MG Oral Tablet Take by mouth. Active Vitamin B-12 1000 MCG Oral Tablet (Cyanocobalamin)I ndications:Antepa rtum anemia complicating Take 1 Tablet by mouth in the morning. 30 Tablet 5 11/19/2024 Active documented as of this encounter (statuses as of 12/10/2024) Active Problems Problem Noted Date Diagnosed Date [...] as of this encounter (statuses as of 12/10/2024) Resolved Problems Problem Noted Date Diagnosed Date Resolved Date Encounter for insertion of Mirena IUD 06/18/2020 06/18/2020 IUD (intrauterine device) in place 06/18/2020 11/18/2024 Overview (06/18/2020): Mirena Urticaria 02/21/2006 documented as of this encounter (statuses as of 12/10/2024) Immunizations Name Administration Dates Next Due Seasonal [...] money to get more. 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 Baby is active. Some irregular contractions, no bleeding or LOF. Declines contraception . GBS today. Waxer Operator Documentation Provider requested hotel or motel cleaning supervisor. Name of hotel or motel cleaning supervisor: LORENZO Wang * Agnes Huntley CMA - 12/10/2024 10:09 AM EST 36w6d GBS swab today Requesting cervical check Random contractions Denies any concerns documented in this encounter Plan of Treatment Upcoming Encounters Date Type Department Care Team (Late st Contact Info) Description 12/11/2024 10:00 AM EST Pharm[facility] Pharm[facility], [place] [address] [facility] [address] [facility], [facility] [address] [facility] [place] [address] 12/17/2024 8:45 AM EST Office Visit Gynecology/Obstetrics [address] [place] [address] Marta Tsang CRNP [address] [place] [phone] Pending Results Name Type Priority Associated Diagnoses Date /Time GROUP B STREP CULTURE/PCR Lab Routine Encounter for supervision of other normal , third trimester 12/10/2024 10:53 AM EST Scheduled Orders Name Type Priority Associated Diagnoses Orde r Schedule GROUP B STREP CULTURE/PCR Lab Routine Encounter for supervision of other normal , third trimester Expected: 12/10/2024, Expires: 12/10/2025 Health Maintenance Due Date Last Done Comments [...] this encounter Medical Devices Implanted Type Area Reverser Device Identifier Shelf Expiration Date Model / Serial / Lot Mesh 3dmax 3.1x5.3in Lft Med - [id number] Implanted:Qty: 1 on 12/04/2020 by Josue Farr MD at OR [facility] Left: Groin CR BARD : DAVOL 01/03/2025 [id number] / / [id number] documented as of this encounter Visit Diagnoses Diagnosis Encounter for supervision of other normal , third trimester- Primary Thrombophlebitis Phlebitis and thrombophlebitis of unspecified site Rh negative, antepartum Rhesus isoimmunization affecting management of mother, antepartum condition Antepartum anemia complicating Anemia, antepartum documented in this encounter Advance Directives * Full Code (Latest Code Status on File) Date Activated Date Inactivated Comments 12/04/2020 12:25 PM 12/04/2020 8:17 PM This order reflects the patients wishes and were consensually agreed upon. Care Teams Sealing Machine Operator Relationship Specialty Start Date End Date Annette See DO [address] [place] [address] PCP - General Family Medicine 11/04/19 documented as of this encounter
--- OUTSIDE RECORDS SUMMARY | 2025-01-04 05:31 | External Medical Summary ---
Author Name Unknown Address Unknown Organization K01:[facility] - [address] [place] [id number] Laboratory Report Ordering Provider Test Date Status DOUGLAS GARCIA 12/17/2024 09:18:25 Final Observation Date Value Abnormality Reference (Units) Status Bacteria identified in Specimen by Culture 12/17/2024 09:18:25 No significant growth Final Test: Culture, Urine, Quanti tative
Specimen Source: Urine, Clean Catch
Specimen Type: Urine
Specimen Date: 12/17/2024917
Result Date: 12/18/2024 0847
Result Status: Final result
Resulting Lab: [facility]
[address]
[place] [id number]

CULTURE

No significant growth

null Performing Location LAB[facility]AT[facility] [place] - [address] [place] [address]
--- OUTSIDE RECORDS SUMMARY | 2025-01-04 05:31 | External Medical Summary | Summary of Care ---
Author Name Unknown Organization [facility] Address [address] [facility] [place] [address] Phone [phone] Care Team Providers Care Box Printing Machine Operator Name Role Phone Annette See DO Primary Care Provider Reason for Visit * Reason Comments Return Visit Encounter Details Date Type Department Care Team (Late st Contact Info) Description 12/10/2024 10:15 AM EST Office Visit Gynecology/Obstetric s [facility] [address] [place] [address] Noelle Schaefer CRNP [address] [place] [address] Encounter for supervision of other normal , [...] money to get more. 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 Declines contraception . GBS today. Soils Technician Documentation Provider requested lithographic press operator apprentice. Name of lithographic press operator apprentice: LORENZO Wang * Agnes Huntley CMA - 12/10/2024 10:09 AM EST 36w6d GBS swab today Requesting cervical check Random contractions Denies any concerns documented in this encounter Plan of Treatment Upcoming Encounters Date Type Department Care Team (Late st Contact Info) Description 12/11/2024 10:00 AM EST [facility] [address] [facility] [place] [address] [facility], [facility] [address] [facility] [place] [address] 12/17/2024 8:45 AM EST Office Visit Gynecology/Obstetrics [address] [place] [address] Marta Tsang CRNP [address] [place] [address] Pending Results Name Type Priority Associated Diagnoses [...] this encounter Medical Devices Implanted Type Area Pin Chaser Device Identifier Shelf Expiration Date Model / Serial / Lot Mesh 3dmax 3.1x5.3in Lft Med - [id number] Implanted:Qty: 1 on 12/04/2020 by Josue Farr MD at OR [facility] Left: Groin CR BARD : DAVOL 01/03/2025 [id number] / / [id number] documented as of this encounter Visit Diagnoses [...] and were consensually agreed upon. Care Teams Box Printing Machine Operator Relationship Specialty Start Date End Date Annette See DO [address] [place] [address] PCP - General Family Medicine 11/04/19 documented as of this encounter
--- OUTSIDE RECORDS SUMMARY | 2025-01-04 05:31 | External Medical Summary | Summary of Care ---
Author Name Unknown Organization [facility] Address [address] [facility] [place] [address] Phone [phone] Care Team Providers Care Interior Decorator Name Role Phone Annette See DO Primary Care Provider Reason for Visit * Reason Comments Return Visit Encounter Details Date Type Department Care Team (Late st Contact Info) Description 12/17/2024 8:45 AM EST Office Visit Gynecology/Obstetric s [facility] [address] [place] [address] Marta Tsang CRNP [address] [place] [address] Encounter for supervision of other normal , unspecified trimester*; Thrombophlebitis; Rh negative status during in third trimester; Antepartum anemia complicating ; Back pain affecting in third trimester Allergies Active Allergy Reactions Criticality Noted Date Comments Amoxicillin 02/21/2006 rash documented as of this encounter (statuses as of 12/17/2024) Medications 28-0.8 MG Oral Tablet Take by mouth. Active DHA 200 MG Oral Capsule Take by mouth. Active Vitamin B-12 1000 MCG Oral Tablet (Cyanocobalamin)I ndications:Antepa rtum anemia complicating Take 1 Tablet by mouth in the morning. 30 Tablet 5 5 Active Iron 325 (65 Fe) MG Oral Tablet Take by mouth. 12/17/19 25 Discontinu ed(Medicat ion List Clean Up) documented as of this encounter (statuses as of 12/17/2024) Active Problems Problem Noted Date Diagnosed Date [...] as of this encounter (statuses as of 12/17/2024) Resolved Problems Problem Noted Date Diagnosed Date Resolved Date Encounter for insertion of Mirena IUD 06/18/2020 06/18/2020 IUD (intrauterine device) in place 06/18/2020 11/18/2024 Overview (06/18/2020): Mirena Urticaria 02/21/2006 documented as of this encounter (statuses as of 12/17/2024) Immunizations Name Administration Dates Next Due Seasonal [...] money to get more. 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 Able to tolerate fluids. Baby moving well, no LOF/bleeding. Had some irregular ctx yesterday. Notes low back pain. No fevers/chills. Some increase in urinary frequency, hesitancy. Desires cervical exam, closed. BACK: no costovertebral angle tenderness, range of motion is normal, Mild to moderate spasm of paralumbar muscles +ketones in urine. Will send urine culture. Declines meds for nausea. Recommend heat, Tylenol for back pain - likely strain from vomiting. Encouraged to continue pushing fluids. Call office if symptoms are not improving or with decreased FM, regular painful ctx, LOF/bleeding. Diesel Powerplant Supervisor Documentation Provider requested customer services manager. Name of customer services manager: LORENZO Mariee documented in this encounter Nursing Notes * Cyn Miller LPN - 12/17/2024 8:45 AM EST 37w6d Had n and vomiting yesterday Having back pain now documented in this encounter Plan of Treatment Upcoming Encounters Date Type Department Care Team (Late st Contact Info) Description 01/03/2025 11:00 AM EST [facility] [address] [place] [address] Fe Tracy PA-C [address] [place] [address] Pending Results Name Type Priority Associated Diagnoses Date /Time CULTURE, URINE, QUANTITATIVE Lab Routine Back pain affecting in third trimester 12/17/2024 9:18 AM EST Health Maintenance Due Date Last Done Comments [...] this encounter Medical Devices Implanted Type Area Extra Gang Supervisor Device Identifier Shelf Expiration Date Model / Serial / Lot Mesh 3dmax 3.1x5.3in Lft Med - [id number] Implanted:Qty: 1 on 12/04/2020 by Josue Farr MD at OR [facility] Left: Groin CR BARD : DAVOL 01/03/2025 [id number] / / [id number] documented as of this encounter Visit Diagnoses Diagnosis Encounter for supervision of other normal , unspecified trimester- Primary Thrombophlebitis Phlebitis and thrombophlebitis of unspecified site Rh negative status during in third trimester Antepartum anemia complicating Anemia, antepartum Back pain affecting in third trimester documented in this encounter Advance Directives * Full Code (Latest Code Status on File) Date Activated Date Inactivated Comments 12/04/2020 12:25 PM 12/04/2020 8:17 PM This order reflects the patients wishes and were consensually agreed upon. Care Teams Interior Decorator Relationship Specialty Start Date End Date Annette See DO [facility] [place] [address] PCP - General Family Medicine 11/04/19 documented as of this encounter
--- OUTSIDE RECORDS SUMMARY | 2025-01-04 05:31 | External Medical Summary ---
Author Name Unknown Address Unknown Organization K01:[facility] - [facility] [address] [place] [address] Laboratory Report Ordering Provider Test Date Status ESTEBAN BURNS 12/10/2024 10:53:34 Final Observation Date Value Abnormality Reference (Units ) Status Streptococcus agalactiae DNA [Presence] in Specimen by GRACE with probe detection 12/10/2024 10:53:34 Negative Negative Final No Group B Streptococcus det ected by culture-enhanced PCR (amplified probe). GBS GBSCT - [facility] 12/10/2024 10:53:34 0.0 Final GBS SPCCT - [facility] 12/10/2024 10:53:34 32.0 Final Performing Location [facility] - [address] [place] [address]
--- OUTSIDE RECORDS SUMMARY | 2025-01-04 05:31 | External Medical Summary | Summary of Care ---
Author Name Unknown Organization [facility] Address [address] [facility] [place] [address] Phone [phone] Care Team Providers Care Customer Care Manager Name Role Phone Annette See DO Primary Care Provider Reason for Visit * Reason Comments Return Visit Encounter Details Date Type Department Care Team (Late st Contact Info) Description 01/03/2025 10:45 AM EST Office Visit Gynecology/Obstetric s [facility] [address] [place] [address] Fe Tracy PA-C [address] [place] [address] Encounter for supervision of other normal , unspecified trimester*; Thrombophlebitis; Rh negative status during in third trimester; Antepartum anemia complicating ; Post-term , 40-42 weeks of gestation Allergies Active Allergy Reactions Criticality Noted Date Comments Amoxicillin 02/21/2006 rash documented as of this encounter (statuses as of 01/03/2025) Medications 28-0.8 MG Oral Tablet Take by mouth. Active DHA 200 MG Oral Capsule Take by mouth. Active Vitamin B-12 1000 MCG Oral Tablet (Cyanocobalamin)I ndications:Antepa rtum anemia complicating Take 1 Tablet by mouth in the morning. 30 Tablet 5 11/19/2024 Active documented as of this encounter (statuses as of 01/03/2025) Active Problems Problem Noted Date Diagnosed Date [...] as of this encounter (statuses as of 01/03/2025) Resolved Problems Problem Noted Date Diagnosed Date Resolved Date Encounter for insertion of Mirena IUD 06/18/2020 06/18/2020 IUD (intrauterine device) in place 06/18/2020 11/18/2024 Overview (06/18/2020): Mirena Urticaria 02/21/2006 documented as of this encounter (statuses as of 01/03/2025) Immunizations Name Administration Dates Next Due Seasonal [...] money to get more. 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 Not on file documented as of this encounter Last Filed Vital Signs Vital Sign Reading Time Taken Comments Blood Pressure 104/62 01/03/2025 10:49 AM EST Pulse - - Temperature - - Respiratory Rate - - Oxygen Saturation - - Inhaled Oxygen Concentration - - Weight 77.6 kg (171 lb) 01/03/2025 10:49 AM EST Height 167.6 cm (5' 6") 01/03/2025 10:49 AM EST Body Mass Index 27.6 01/03/2025 10:49 AM EST documented in this encounter Progress Notes * Fe Tracy PA-C - 01/03/2025 10:54 AM EST Nani Carver is a 29 year old female here for her routine OB appointment at 40w2d Her Estimated Date of Delivery: 01/01/25 REVIEW OF SYSTEMS She affirms movement. Denies vaginal bleeding, LOF, headaches, vision changes, chest pain, RUQ pain. + lost her mucous plug this morning. Blood tinged, no heavy vaginal bleeding or LOF. + irregular contractions, not frequent or timeable. PHYSICAL EXAM Filed Vitals: 01/03/25 1049 BP: 104/62 Weight: 77.6 kg (171 lb) Height: 1.676 m (5' 6") +FHT 130s Fundal height 40 cm Position: cephalic CE: 40%/2 cm/-3 Membrane sweep attempted. Corporate Planner Documentation Patient offered glaciologist and accepted. Name of glaciologist: Brenda Miller LPN. ASSESSMENT/PLAN Encounter for supervision of other normal , unspecified trimester (Primary) Thrombophlebitis Rh negative status during in third trimester - Declined Rhogam, has paperwork scanned into chart confirming FOB O- blood type. Antepartum anemia complicating - Patient has seen blood management. Post-term , 40-42 weeks of gestation - US PREG LIMITED 1 OR MORE FETUSES; Future; Expected date: 01/10/2025 Supervision of - labor precautions and kick counts reviewed - discussed recommendations for NST twice weekly with visit and INGRID in the 41st week gestation. Patient agreeable. - Discussed post date IOL, she is agreeable. Instructions given. RTO in 1 week for HAILE, INGRID, NST Fe Tracy PA-C 01/03/2025 documented in this encounter Nursing Notes * Cyn Miller LPN - 01/03/2025 10:48 AM EST 40w2d Would like cervix checked Declines IOL documented in this encounter Plan of Treatment Upcoming Encounters Date Type Department Care Team (Late st Contact Info) Description 01/09/2025 10:30 AM EST Imaging Radiology [facility] 2nd Floor, [place] [address] [facility] [place] [address] 01/09/2025 11:15 AM EST [facility] [address] [place] [address] Noelle Schaefer CRNP [address] [place] [address] [place], Non Stress Tests [facility] [address] [place] [address] Scheduled Orders Name Type Priority Associated Diagnoses Orde r Schedule US PREG LIMITED 1 OR MORE FETUSES Medical Imaging Routine Post-term , 40-42 weeks of gestation Expected: 01/10/2025, Expires: 01/31/2026 Health Maintenance Due Date Last Done Comments HPV (Gardasil) Vaccine (2 - 3-dose series) 06/10/2008 05/13/2008 Depression Screening 03/17/2021 03/17/2020 COVID-19 Vaccine ( season) 2024 Influenza Vaccine (FLU shot) (#1) 2024 08/06/2019, 07/26/2019 Pap Smear 06/03/2027 06/03/2024, 11/2018, 06/23/2016 DTap/Tdap Vaccines (7 - Td or Tdap) 06/15/2028 06/15/2018, 09/23/1997, 07/18/1994, Additional history exists Cervical Cancer Screening 06/03/2029 HPV/Co-Test 06/03/2029 06/03/2024 MENINGOCOCCAL (MENACTRA/MENVEO) Aged Out 07/10/2006 No longer eligible based on patient's age to complete this topic Meningitis B Vaccine (Bexsero/Trumemba) Aged Out No longer eligible based on patient's age to complete this topic Pneumococcal Vaccine: Pediatrics (0 to 5 Years) and At-Risk Patients (6 to 18 Years and 19+ Years) Aged Out No longer eligib le based on patient's age to complete this topic documented as of this encounter Medical Devices Implanted Type Area Patient Admitting Clerk Device Identifier Shelf Expiration Date Model / Serial / Lot Mesh 3dmax 3.1x5.3in t Med - [id number] Implanted:Qty: 1 on 12/04/2020 by Josue Farr MD at OR [facility] [address] Left: Groin CR BARD : DAVOL 01/03/2025 [id number] / / [id number] documented as of this encounter Visit Diagnoses Diagnosis Encounter for supervision of other normal , unspecified trimester- Primary Thrombophlebitis Phlebitis and thrombophlebitis of unspecified site Rh negative status during in third trimester Antepartum anemia complicating Anemia, antepartum Post-term , 40-42 weeks of gestation Post term , unspecified episode of care documented in this encounter Advance Directives * Full Code (Latest Code Status on File) Date Activated Date Inactivated Comments 12/04/2020 12:25 PM 12/04/2020 8:17 PM This order reflects the patients wishes and were consensually agreed upon. Care Teams Customer Care Manager Relationship Specialty Start Date End Date Annette See DO [address] [place] [address] PCP - General Family Medicine 11/04/19 documented as of this encounter
--- OUTSIDE RECORDS SUMMARY | 2025-01-04 05:32 | External Medical Summary | Summary of Care ---
Author Name Unknown Organization [facility] Address [address] [facility] [place] [address] Phone [phone] Care Team Providers Care Bleach Range Operator Name Role Phone Annette See DO Primary Care Provider Reason for Visit * Reason Onset Date Comments Other 11/27/2024 InFed Encounter Details Date Type Department Care Team (Late st Contact Info) Description 11/27/2024 Telephone Hematology/Oncology Treatment, [place] [address] [place] [address] Fe Tracy PA-C [address] [place] [address] Other (InFed ) Allergies Active Allergy Reactions Criticality Noted Date Comments Amoxicillin 02/21/2006 rash documented as of this encounter (statuses as of 11/29/2024) Medications 28-0.8 MG Oral Tablet Take by mouth. Active DHA 200 MG Oral Capsule Take by mouth. Active Iron 325 (65 Fe) MG Oral Tablet Take by mouth. Active Vitamin B-12 1000 MCG Oral Tablet (Cyanocobalamin)I ndications:Antepa rtum anemia complicating Take 1 Tablet by mouth in the morning. 30 Tablet 5 11/19/2024 Active documented as of this encounter (statuses as of 11/29/2024) Active Problems Problem Noted Date Diagnosed Date [...] as of this encounter (statuses as of 11/29/2024) Resolved Problems Problem Noted Date Diagnosed Date Resolved Date Encounter for insertion of Mirena IUD 06/18/2020 06/18/2020 IUD (intrauterine device) in place 06/18/2020 11/18/2024 Overview (06/18/2020): Mirena Urticaria 02/21/2006 documented as of this encounter (statuses as of 11/29/2024) Immunizations Name Administration Dates Next Due Seasonal [...] money to get more. 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 Scheduling: please call patient to schedule 3 hour appt "infed" (Fe Tracy). Thanks! * Telephone Encounter - Marta Jones LPN - 11/27/2024 1:31 PM EST Order received for InFed Mobile [place] [id number] No prior authorization required Awaiting provider signature before scheduling patient. documented in this encounter Plan of Treatment Upcoming Encounters Date Type Department Care Team (Late st Contact Info) Description 12/03/2024 8:15 AM EST Office Visit Gynecology/Obstetrics [facility] [address] [place] [address] Noelle Schaefer CRNP [address] [place] [address] 12/11/2024 10:00 AM EST Pharmacy Pharmacy, [place] [address] [place] [address] Clinic, [facility] [address] [place] [address] Health Maintenance Due Date Last Done Comments HPV (Gardasil) Vaccine (2 - 3-dose series) 06/10/2008 05/13/2008 Depression Screening 03/17/2021 03/17/2020 COVID-19 Vaccine ( season) 2024 Influenza Vaccine (FLU shot) (#1) 2024 08/06/2019, 07/26/2019 Pap Smear 06/03/2027 06/03/2024, 10/11/2018, 06/23/2016 DTap/Tdap Vaccines (7 - Td or [...] this encounter Medical Devices Implanted Type Area Police Specialist Device Identifier Shelf Expiration Date Model / Serial / Lot Mesh 3dmax 3.1x5.3in Lft Med - [id number] Implanted:Qty: 1 on 12/04/2020 by Josue Farr MD at OR [facility] Left: Groin CR BARD : DAVOL 01/03/2025 [id number] / / [id number] documented as of this encounter Advance Directives * Full Code (Latest Code Status on File) Date Activated Date Inactivated Comments 12/04/2020 12:25 PM 12/04/2020 8:17 PM This order reflects the patients wishes and were consensually agreed upon. Care Teams Bleach Range Operator Relationship Specialty Start Date End Date Annette See DO [facility] [place] [address] PCP - General Family Medicine 11/04/19 documented as of this encounter
--- OUTSIDE RECORDS SUMMARY | 2025-01-04 05:32 | External Medical Summary | Summary of Care ---
Author Name Unknown Organization [facility] Address [address] [facility] [place] [address] Phone [phone] Care Team Providers Care Warehouse Picker Name Role Phone Annette See DO Primary Care Provider Reason for Visit * Reason Comments Anemia Follow-Up * Evaluate & Treat - Unlimited Visits (Within 10 days (routine)) - Authorized Specialty Diagnoses / Procedures Referred By Contac t Referred To Contact Pharmacist / Pharmacy Diagnoses ANTOINETTE (iron deficiency anemia) Fe Tracy PA-C [address] [place] [address] Phone: tel: fax: Referral ID Status Reason Start Date Expiration Date Visits Requested Visits Authorized [id number] Authorized Specialty Services Required 11/19/2024 05/18/2025 99 99 Encounter Details Date Type Department Care Team (Late st Contact Info) Description 11/25/2024 4:00 PM EST [facility] [place] [facility] [address] [facility] [address] [facility], [facility] [address] [facility] [place] [address] Antepartum anemia complicating *; Encounter for supervision of other normal , unspecified trimester; Thrombophlebitis Allergies Active Allergy Reactions Criticality Noted Date Comments Amoxicillin 02/21/2006 rash documented as of this encounter (statuses as of 11/27/2024) Medications 28-0.8 MG Oral Tablet Take by mouth. Active DHA 200 MG Oral Capsule Take by mouth. Active Iron 325 (65 Fe) MG Oral Tablet Take by mouth. Active Vitamin B-12 1000 MCG Oral Tablet (Cyanocobalamin)I ndications:Antepa rtum anemia complicating Take 1 Tablet by mouth in the morning. 30 Tablet 5 11/19/2024 Active documented as of this encounter (statuses as of 11/27/2024) Active Problems Problem Noted Date Diagnosed Date Antepartum anemia complicating 024 Overview (10/17/2024): Hgb [...] as of this encounter (statuses as of 11/27/2024) Resolved Problems Problem Noted Date Diagnosed Date Resolved Date Encounter for insertion of Mirena IUD 06/18/2020 06/18/2020 IUD (intrauterine device) in place 06/18/2020 11/18/2024 Overview (06/18/2020): Crispin Urticaria 02/21/2006 documented as of this encounter (statuses as of 11/27/2024) Immunizations Name Administration Dates Next Due Seasonal [...] money to get more. 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 Called patient to introduce role/clinic and to review labs from 11/18/24. Spoke with patient. Hgb: 10.7 g/dL TSAT: 24 % Ferritin: 57 ng/mL B12: 204 pg/mL FA: >20 ng/mL GA: 35w0d Estimated Date of Delivery: 01/01/25 Hgb is below target range for the 3rd trimester. TSAT appears adequate but ferritin below target range. B12 level below target range. FA level within target range. Patient is taking B12 1000 mcg daily (started 11/19/24) and oral iron daily and appears to be tolerating it well. Patient reports did have dizziness, faint feeling, but has much improved since starting B12 supplement. Otherwise denies signs/symptoms of anemia. Oral iron replenishment inadequate. Patient qualifies for IV iron repletion. Plan: Iron dextran (INFeD) 1000 mg IV x 1 dose @ [facility]. Orders placed and routed to appropriate parties. Patient agreeable to intervention. Follow-up labs to be scheduled ~4-6 weeks after iron repletion completed if appropriate prior to delivery. Anemia Clinic will continue to follow. Thank you for allowing us to participate in the care of thispatient. Fe Faulkner, PharmD Clinical Pharmacist - Casing In Line Feeder [facility] (P: [phone]) 11/27/2024 10:35 AM documented in this encounter Plan of Treatment Upcoming Encounters Date Type Department Care Team (Late st Contact Info) Description 12/03/2024 8:15 AM EST Office Visit Gynecology/Obstetrics [facility] [address] [place] [address] Noelle Schaefer CRNP [address] [place] [address] 12/11/2024 10:00 AM EST Pharmacy Pharmacy, [place] [address] [place], [place] [id number] Clinic, Anemia [address] [place] [address] Scheduled Referrals Name Type Priority Associated Diagnoses Orde r Schedule PHARMACIST MEDS THERAPY MGMT REFERRAL OP Referral Within 10 days (routine) ANTOINETTE (iron deficiency anemia) Ordered: 11/19/2024 Health Maintenance Due Date Last Done Comments [...] this encounter Medical Devices Implanted Type Area Bacon De Rinder Device Identifier Shelf Expiration Date Model / Serial / Lot Mesh 3dmax 3.1x5.3in Lft Med - [id number] Implanted:Qty: 1 on 12/04/2020 by Josue Farr MD at OR [facility] Left: Groin CR BARD : DAVOL 01/03/2025 [id number] / / [id number] documented as of this encounter Visit Diagnoses Diagnosis Antepartum anemia complicating - Primary Anemia, antepartum Encounter for supervision of other normal , unspecified trimester Thrombophlebitis Phlebitis and thrombophlebitis of unspecified site documented in this encounter Advance Directives * Full Code (Latest Code Status on File) Date Activated Date Inactivated Comments 12/04/2020 12:25 PM 12/04/2020 8:17 PM This order reflects the patients wishes and were consensually agreed upon. Care Teams Warehouse Picker Relationship Specialty Start Date End Date Annette See DO [address] [place] [address] PCP - General Family Medicine 11/04/19 documented as of this encounter
--- OUTSIDE RECORDS SUMMARY | 2025-01-04 05:32 | External Medical Summary ---
Author Name Unknown Address Unknown Organization K01:[facility] - [address] [facility]. [place] [address] Laboratory Report Ordering Provider Test Date Status MELISSA MELENDEZ 11/18/2024 08:22:50 Final Observation Date Value Abnormality Reference (Units ) Status SYNC LEUKOCYTES IN BLOOD BY AUTOMATED COUNT 11/18/2024 08:22:50 7.14 4.00-10.80 (K/uL) Final Segs 11/18/2024 08:22:50 69.7 40.0-75.0 (%) Final Lymphs % 11/18/2024 08:22:50 18.6 18.0-42.0 (%) Final Monos 11/18/2024 08:22:50 8.4 1.0-11.0 (%) Final Eosinophils 11/18/2024 08:22:50 1.5 0.0-6.0 (%) Final Basos 11/18/2024 08:22:50 0.4 0.0-2.0 (%) Final Immature Granulocyte, Percent 11/18/2024 08:22:50 1.4 0.0-2.0 (%) Final Absolute Segs 11/18/2024 08:22:50 4.97 1.80-7.70 (K/uL) Final Lymphs, absolute 11/18/2024 08:22:50 1.33 1.00-4.80 (K/ul) Final Monos, Abs 11/18/2024 08:22:50 0.60 0.00-1.10 (K/uL) Final Eos, Abs 11/18/2024 08:22:50 0.11 0.00-0.70 (K/uL) Final Basos, Abs 11/18/2024 08:22:50 0.03 0.00-0.20 (K/uL) Final Immature Granulocytes, Number 11/18/2024 08:22:50 0.10 0.00-0.20 (K/uL) Final Performing Location [facility] - [address] [facility] [address]
--- OUTSIDE RECORDS SUMMARY | 2025-01-04 05:32 | External Medical Summary | Summary of Care ---
Author Name Unknown Organization [facility] Address [address] [facility] [place] [address] Phone [phone] Care Team Providers Care Infantry Indirect Fire Crewmember Name Role Phone Annette See DO Primary Care Provider Reason for Referral * Evaluate & Treat - Unlimited Visits (Within 10 days (routine)) Specialty Diagnoses / Procedures Referred By Contkamilah t Referred To Contact Hyperbaric Medicine Diagnoses Antepartum anemia complicating Fe Tracy PA-C [address] [place] [address] Phone: tel: fax: Referral ID Status Reason Start Date Expiration Date V isits Requested Visits Authorized Specialty Services Required Question Answer Referral Priority Within 10 days (routine) Where should this appointment be scheduled? Arvind Encounter Details Date Type Department Care Team (Late st Contact Info) Description 11/19/2024 Orders Only Laboratory, [facility] [address] [place] [id number] Fe Tracy PA-C [address] [place] [address] Antepartum anemia complicating * Allergies Active Allergy Reactions Criticality Noted Date Comments Amoxicillin 02/21/2006 rash documented as of this encounter (statuses as of 11/19/2024) Medications 28-0.8 MG Oral Tablet Take by mouth. Active DHA 200 MG Oral Capsule Take by mouth. Active Iron 325 (65 Fe) MG Oral Tablet Take by mouth. Active Vitamin B-12 1000 MCG Oral Tablet (Cyanocobalamin)I ndications:Antepa rtum anemia complicating Take 1 Tablet by mouth in the morning. 30 Tablet 5 11/19/2024 Active documented as of this encounter (statuses as of 11/19/2024) Active Problems Problem Noted Date Diagnosed Date [...] as of this encounter (statuses as of 11/19/2024) Resolved Problems Problem Noted Date Diagnosed Date Resolved Date Encounter for insertion of Mirena IUD 06/18/2020 06/18/2020 IUD (intrauterine device) in place 06/18/2020 11/18/2024 Overview (06/18/2020): Mirena Urticaria 02/21/2006 documented as of this encounter (statuses as of 11/19/2024) Immunizations Name Administration Dates Next Due Seasonal [...] money to get more. Never true 08/15/2024 [place] Depression Scale Answer Date Recorded [place] Depression Scale Total 0 11/18/2024 The thought [...] 08/15/2024 Does the household have a re lar source of income? 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 Not on file documented as of this encounter Plan of Treatment Upcoming Encounters Date Type Department Care Team (Late st Contact Info) Description 12/03/2024 8:15 AM EST [facility] [address] [place] [address] Noelle Schaefer CRNP [address] [place] [address] Scheduled Referrals Name Type Priority Associated Diagnoses Orde r Schedule BLOOD MANAGEMENT REFERRAL Referral Within 10 days (routine) Antepartum anemia complicating Ordered: 11/19/2024 Health Maintenance Due Date Last [...] this encounter Medical Devices Implanted Type Area Electrical Continuity Inspector Device Identifier Shelf Expiration Date Model / Serial / Lot Mesh 3dmax 3.1x5.3in Lft Med - [id number] Implanted:Qty: 1 on 12/04/2020 by Josue Farr MD at OR [facility] Left: Groin CR BARD : DAVOL 01/03/2025 [id number] / / [id number] documented as of this encounter Visit Diagnoses Diagnosis Antepartum anemia complicating - Primary Anemia, antepartum documented in this encounter Advance Directives * Full Code (Latest Code Status on File) Date Activated Date Inactivated Comments 12/04/2020 12:25 PM 12/04/2020 8:17 PM This order reflects the patients wishes and were consensually agreed upon. Care Teams Infantry Indirect Fire Crewmember Relationship Specialty Start Date End Date Annette See DO [address] [place] [address] PCP - General Family Medicine 11/04/19 documented as of this encounter
--- OUTSIDE RECORDS SUMMARY | 2025-01-04 05:32 | External Medical Summary ---
Author Name Unknown Address Unknown Organization K01:[facility] - [address] [place] [address] Laboratory Report Ordering Provider Test Date Status MELISSA MELENDEZ 11/18/2024 08:22:50 Final Observation Date Value Abnormality Reference (Units ) Status Iron 11/18/2024 08:22:50 88 33-151 (ug /dL) Final Iron-binding capacity 11/18/2024 08:22:50 368 250-425 (ug/dL) Final Transferrin Sat % 11/18/2024 08:22:50 24 15 -55 (%) Final Performing Location [facility] - [address] [place] [address]
--- OUTSIDE RECORDS SUMMARY | 2025-01-04 05:32 | External Medical Summary | Summary of Care ---
Author Name Unknown Organization [facility] [address] [facility] [address] Phone [phone] Care Team Providers Care Lollypop Machine Operator Name Role Phone Annette See DO Primary Care Provider Reason for Visit * Reason Comments Infusion Infed Encounter Details Date Type Department Care Team (Latest Contact Info) Description 12/06/2024 9:30 AM EST Hem/Onc Treatment Hematology/Oncology Treatment, [place] [address] [place] [address] Domonique, Chair [address] Hem Onc Scene [address] [place] [address] Antepartum anemia complicating *; Iron deficiency anemia, unspecified iron deficiency anemia type Allergies Active Allergy Reactions Criticality Noted Date Comments Amoxicillin 02/21/2006 rash documented as of this encounter (statuses as of 12/06/2024) Medications 28-0.8 MG Oral Tablet Take by mouth. Active DHA 200 MG Oral Capsule Take by mouth. Active Iron 325 (65 Fe) MG Oral Tablet Take by mouth. Active Vitamin B-12 1000 MCG Oral Tablet (Cyanocobalamin)I ndications:Antepa rtum anemia complicating Take 1 Tablet by mouth in the morning. 30 Tablet 5 11/19/2024 Active documented as of this encounter (statuses as of 12/06/2024) Active Problems Problem Noted Date Diagnosed Date [...] as of this encounter (statuses as of 12/06/2024) Resolved Problems Problem Noted Date Diagnosed Date Resolved Date Encounter for insertion of Mirena IUD 06/18/2020 06/18/2020 IUD (intrauterine device) in place 06/18/2020 11/18/2024 Overview (06/18/2020): Mirena Urticaria 02/21/2006 documented as of this encounter (statuses as of 12/06/2024) Immunizations Name Administration Dates Next Due Seasonal [...] money to get more. 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 Not [...] Description 12/10/2024 10:15 AM EST Office Visit Gynecology/Obstetrics [facility] [address] [place] [address] Noelle Schaefer CRNP [address] [place] [address] 12/11/2024 10:00 AM EST Pharmacy Pharmacy, [place] [address] [place] [address] Clinic, [facility] [address] [place], [place] [phone] Health Maintenance Due Date Last Done Comments [...] this encounter Medical Devices Implanted Type Area Thread Twister Device Identifier Shelf Expiration Date Model / Serial / Lot Mesh 3dmax 3.1x5.3in Lft Med - [id number] Implanted:Qty: 1 on 12/04/2020 by Josue Farr MD at OR [facility] Left: Groin CR BARD : KAMAR 01/03/2025 [id number] / / [id number] documented as of this encounter Visit Diagnoses Diagnosis Antepartum anemia complicating - Primary Anemia, antepartum Iron deficiency anemia, unspecified iron deficiency anemia type documented in this encounter Administered Medications Active Administered Medications - up to 3 most recent administrations Medication Order MAR Action Action Date Dose Rate Site EPINEPHrine 1 MG/ML inj 0.3 mg 0.3 mg, Intramuscular, ONCE PRN Other, Hypersensitivity Reaction or Anaphylaxis, Starting on Mon12/06/24 at 0945, Until 12/07/24 at 0944, For 24 hoursIndications:Antepartum anemia complicating ,Iron deficiency anemia, unspecified iron deficiency anemia type Famotidine (Pepcid) inj 20 mg 20 mg, IV Push, ONCE PRN Other, Hypersensitivity Reaction, Starting on Mon12/06/24 at 0945, Until 12/07/24 at 0944, For 24 hours, Give IV push over 2 minutes.Indications:Antepartum anemia complicating ,Iron deficiency anemia, unspecified iron deficiency anemia type hEParin 100 UNIT/ML Lock Flush inj 500 Units 500 Units (5 mL), IV Lock, PRN Other, IV Flush, Starting on Mon12/06/24 at 0945, Until 12/07/24 at 0944, For 24 hours, Do not flush if lock, PICC, or central line not in place; IV infusing or unable to flush.Indications:Antepartum anemia complicating ,Iron deficiency anemia, unspecified iron deficiency anemia type Hydrocortisone Sod Suc (PF) (Solu-Cortef) inj 100 mg 100 mg, IV Push, ONCE PRN Other, Hypersensitivity Reaction, Starting on Mon12/06/24 at 0945, Until 12/07/24 at 0944, For 24 hoursIndications:Antepartum anemia complicating ,Iron deficiency anemia, unspecified iron deficiency anemia type NSS infusion Intravenous, at 50 mL/hr, PRN, Starting on Mon12/06/24 at 1045, Until Discontinued, Maintenance lineIndications:Antepartum anemia complicating ,Iron deficiency anemia, unspecified iron deficiency anemia type Start Infusion 12/06/2024 9:47 AM EST 50 mL/hr oxygen GAS Inhalation, OXYGEN, First dose on Mon12/06/24 at 1030, Until Discontinued, Device/Managed by: Low Flow Device, Goal SPO2 (%): 91-95, Starting Device: Nasal Cannula, Initial Flow Rate (LPM): 2, Lowest Support: Nasal Cannula: Flow 0-6 LPM. Titrate up/down by 1 LPM., Higher Support: Non-Rebreather (NRB) Mask: Minimum of 10 LPM. Titrate to maintain bag inflation., Titration Interval: Q2 minutes and as needed., Notify Provider: For sudden DECREASE in resting SPO2 to less than 85% and when escalating delivery device., Wean patient off Oxygen when the oxygen saturation is greater than or equal to 93%Indications:Antepartum anemia complicating ,Iron deficiency anemia, unspecified iron deficiency anemia type sodium chloride 0.9 % flush central line 10 mL 10 mL, IV Push, PRN Other, IV Flush, Starting on Mon12/06/24 at 0945, Until 12/07/24 at 0944, For 24 hours, Do not flush if lock, PICC, or central line not in place; IV infusing or unable to flush.Indications:Antepartum anemia complicating ,Iron deficiency anemia, unspecified iron deficiency anemia type Inactive Administered Medications - up to 3 [...] Given 12/06/2024 9:48 AM EST 25 mg documented in this encounter Advance Directives * Full Code (Latest Code Status on File) Date Activated Date Inactivated Comments 12/04/2020 12:25 PM 12/04/2020 8:17 PM This order reflects the patients wishes and were consensually agreed upon. Care Teams Lollypop Machine Operator Relationship Specialty Start Date End Date Annette See DO [address] [place] [address] PCP - General Family Medicine 11/04/19 documented as of this encounter
--- OUTSIDE RECORDS SUMMARY | 2025-01-04 05:32 | External Medical Summary | Summary of Care ---
Author Name Unknown Organization [facility] Address [address] [facility] [place] [address] Phone [phone] Care Team Providers Care Poolroom/Poolhall Manager Name Role Phone Annette See DO Primary Care Provider Reason for Visit * Reason Comments Return Visit Encounter Details Date Type Department Care Team (Late st Contact Info) Description 11/18/2024 8:30 AM EST Office Visit Gynecology/Obstetric s [facility] [address] [place] [address] Marta Tsang CRNP [address] [place] [address] Encounter for supervision of other normal , unspecified trimester*; Thrombophlebitis; Rh negative status during in third trimester; Antepartum anemia complicating Allergies Active Allergy Reactions Criticality Noted Date Comments Amoxicillin 02/21/2006 rash documented as of this encounter (statuses as of 11/18/2024) Medications 28-0.8 MG Oral Tablet Take by mouth. Active DHA 200 MG Oral Capsule Take by mouth. Active Iron 325 (65 Fe) MG Oral Tablet Take by mouth. Active documented as of this encounter (statuses as of 11/18/2024) Active Problems Problem Noted Date Diagnosed Date [...] as of this encounter (statuses as of 11/18/2024) Resolved Problems Problem Noted Date Diagnosed Date Resolved Date Encounter for insertion of Mirena IUD 06/18/2020 06/18/2020 IUD (intrauterine device) in place 06/18/2020 11/18/2024 Overview (06/18/2020): Mirena Urticaria 02/21/2006 documented as of this encounter (statuses as of 11/18/2024) Immunizations Name Administration Dates Next Due Seasonal [...] money to get more. 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 No leaking/bleeding or regular ctx. Repeat CBC is in process. Has labor instructions. No thoughts on contraception post-. Has paperwork confirming FOB's blood type is O neg. Will scan to EMR. Suspect transverse lie - can look at [employer] to help optimize position. Return in 2 weeks. LORENZO Hawkins * Myah Laurent LPN - 11/18/2024 8:26 AM EST 33w5d Denies vaginal bleeding/rom + movement Blayne menard Had a couple days 11/05-11/06 that she was having contractions about every hour but has since resolved. documented in this encounter Plan of Treatment Upcoming Encounters Date Type Department Care Team (Late st Contact Info) Description 12/03/2024 8:15 AM EST Office Visit Gynecology/Obstetrics [facility] [address] [place] [address] Noelle Schaefer CRNP [address] [place] [address] Health Maintenance Due Date Last Done Comments [...] this encounter Medical Devices Implanted Type Area Manager Regional Sales Device Identifier Shelf Expiration Date Model / Serial / Lot Mesh 3dmax 3.1x5.3in Lft Med - [id number] Implanted:Qty: 1 on 12/04/2020 by Josue Farr MD at OR [facility] Left: Groin CR BARD : DAVOL 01/03/2025 [id number] / / [id number] documented as of this encounter Visit Diagnoses Diagnosis Encounter for supervision of other normal , unspecified trimester- Primary Thrombophlebitis Phlebitis and thrombophlebitis of unspecified site Rh negative status during in third trimester Antepartum anemia complicating Anemia, antepartum documented in this encounter Advance Directives * Full Code (Latest Code Status on File) Date Activated Date Inactivated Comments 12/04/2020 12:25 PM 12/04/2020 8:17 PM This order reflects the patients wishes and were consensually agreed upon. Care Teams Poolroom/Poolhall Manager Relationship Specialty Start Date End Date Annette See DO [facility] [address] PCP - General Family Medicine 11/04/19 documented as of this encounter
--- OUTSIDE RECORDS SUMMARY | 2025-01-04 05:32 | External Medical Summary | Summary of Care ---
Author Name Unknown Organization [facility] Address [address] [facility] [place] [address] Phone [phone] Care Team Providers Care Tellers Supervisor Name Role Phone Annette See DO Primary Care Provider Reason for Visit * Reason Comments Outpatient Testing Encounter Details Date Type Department Care Team (Late st Contact Info) Description 11/18/2024 8:20 AM EST Laboratory Laboratory, [facility] [address] [facility] [place] [address] [facility] [address] [facility] [place] [address] Antepartum anemia complicating Allergies Active Allergy Reactions [...] Noted Date Diagnosed Date Antepartum anemia complicating 12/09/2 024 Overview (10/17/2024): Hgb 10.8 with third [...] money to get more. Never true 08/15/2024 [place] Depression Scale Answer Date Recorded [place] Depression Scale Total 0 06/03/2024 The thought of harming myself has occurred to me . 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 Not on file documented as of this encounter Plan of Treatment Upcoming Encounters Date Type Department Care Team (Late st Contact Info) Description 12/03/2024 8:15 AM EST Office Visit Gynecology/Obstetrics [facility] [place] [address] [place] [address] Noelle Schaefer CRNP [address] [place] [address] Pending Results Name Type Priority Associated Diagnoses Date /Time CBC WITH WBC DIFFERENTIAL AND ANEMIA REFLEX WORKUP Lab Routine Antepartum anemia complicating 11/18/2024 8:22 AM EST ANEMIA CBC Lab Routine Antepartum anemia complicating 11/18/2024 8:22 AM EST DIFFERENTIAL, AUTOMATED Lab Routine Antepartum anemia complicating 11/18/2024 8:22 AM EST ANEMIA REFLEX CHEMISTRY HOLD Lab Routine Antepartum anemia complicating 11/18/2024 8:22 AM EST Health Maintenance Due Date Last [...] this encounter Medical Devices Implanted Type Area Senior Genetic Counselor Device Identifier Shelf Expiration Date Model / Serial / Lot Mesh 3dmax 3.1x5.3in t Med - [id number] Implanted:Qty: 1 on 12/04/2020 by Josue Farr MD at OR [facility] Left: Groin CR BARD : DAVOL 01/03/2025 [id number] / / [id number] documented as of this encounter Visit Diagnoses Diagnosis Antepartum anemia complicating Anemia, antepartum documented in this encounter Advance Directives * Full Code (Latest Code Status on File) Date Activated Date Inactivated Comments 12/04/2020 12:25 PM 12/04/2020 8:17 PM This order reflects the patients wishes and were consensually agreed upon. Care Teams Tellers Supervisor Relationship Specialty Start Date End Date Annette See DO [address] [place] [address] PCP - General Family Medicine 11/04/19 documented as of this encounter
--- OUTSIDE RECORDS SUMMARY | 2025-01-04 05:32 | External Medical Summary | Summary of Care ---
Author Name Unknown Organization [facility] [address] [facility] [address] Phone [phone] Care Team Providers Care Mental Health Director Name Role Phone Annette See DO Primary Care Provider Reason for Visit * Reason Comments Infusion Infed Encounter Details Date Type Department Care Team (Latest Contact Info) Description 12/06/2024 9:30 AM EST Hem/Onc Treatment Hematology/Oncology Treatment, [place] [address] [place] [address] Domonique, Chair 10 Hem Onc Scene [address] [place] [address] Antepartum anemia complicating *; Iron deficiency anemia, [...] money to get more. 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 Not [...] [facility] [address] [place] [address] Noelle Schaefer CRNP [address] [place] [address] 12/11/2024 10:00 AM EST Pharmacy Pharmacy, [place] [address] [place] [address] Clinic, [facility] [address] [place], [place] [phone] Health Maintenance Due Date Last Done Comments [...] this encounter Medical Devices Implanted Type Area Commission Auditor Device Identifier Shelf Expiration Date Model / Serial / Lot Mesh 3dmax 3.1x5.3in Lft Med - [id number] Implanted:Qty: 1 on 12/04/2020 by Josue Farr MD at OR [facility] Left: Groin CR BARD : KAMAR 01/03/2025 [id number] / / [id number] documented as of this encounter Visit Diagnoses [...] and were consensually agreed upon. Care Teams Mental Health Director Relationship Specialty Start Date End Date Annette See DO [address] [place] [address] PCP - General Family Medicine 11/04/19 documented as of this encounter
--- OUTSIDE RECORDS SUMMARY | 2025-01-04 05:32 | External Medical Summary ---
Author Name Unknown Address Unknown Organization K01:[facility] - [address] [place] [address] Laboratory Report Ordering Provider Test Date Status MELISSA MELENDEZ 11/18/2024 08:22:50 Final Observation Date Value Abnormality Reference (Units ) Status Folic Acid 11/18/2024 08:22:50 >20.0 >4.5 (ng/ mL) Final Performing Location [facility] - [address] [place] [address]
--- OUTSIDE RECORDS SUMMARY | 2025-01-04 05:32 | External Medical Summary ---
Author Name Unknown Address Unknown Organization K01[facility] - [address] [place] [address] Laboratory Report Ordering Provider Test Date Status MELISSA MELENDEZ 11/18/2024 08:22:50 Final Observation Date Value Abnormality Reference (Units ) Status Vitamin B12 11/18/2024 08:22:50 204 Below low normal 2 32-1245 (pg/mL) Final Performing Location [facility] - [address] [place] [address]
--- OUTSIDE RECORDS SUMMARY | 2025-01-04 05:32 | External Medical Summary | Summary of Care ---
Author Name Unknown Organization [facility] Address [address] [facility] [place] [address] Phone [phone] Care Team Providers Care Cylinder Inspector Name Role Phone Annette See DO Primary Care Provider Reason for Visit * Reason Onset Date Comments Other 11/27/2024 InFed Encounter Details Date Type Department Care Team (Late st Contact Info) Description 11/27/2024 Telephone Hematology/Oncology Treatment, [place] [address] [place] [address] Fe Tracy PA-C [address] [place] [address] Other (InFed ) Allergies Active Allergy Reactions [...] money to get more. 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 Scheduling: please call patient to schedule 3 hour appt "infed" (Fe Tracy). Thanks! * Telephone Encounter - Marta Jones LPN - 11/27/2024 1:31 PM EST Order received for InFed [place] [phone] No prior authorization required Awaiting provider signature before scheduling patient. documented in this encounter Plan of Treatment Upcoming Encounters Date Type Department Care Team (Late st Contact Info) Description 12/03/2024 8:15 AM EST Office Visit Gynecology/Obstetrics [facility] [address] [place] [address] Noelle Schaefer CRNP [address] [place] [address] 12/06/2024 9:30 AM EST Hem/Onc Treatment Hematology/Oncology Treatment, [place] [address] [place] [phone] Domonique, Chair 10 Hem Onc Scenery [address] [place] [address] 12/11/2024 10:00 AM EST Pharmacy Pharmacy, [place] [address] [place] [address] [facility], [place] [address] [place] [address] Health Maintenance Due Date Last Done Comments [...] this encounter Medical Devices Implanted Type Area Cementer Device Identifier Shelf Expiration Date Model / Serial / Lot Mesh 3dmax 3.1x5.3in Lft Med - [id number] Implanted:Qty: 1 on 12/04/2020 by Josue Farr MD at OR [facility] Left: Groin CR BARD : DAVOL 01/03/2025 [id number] / / [id number] documented as of this encounter Advance Directives * Full Code (Latest Code Status on File) Date Activated Date Inactivated Comments 12/04/2020 12:25 PM 12/04/2020 8:17 PM This order reflects the patients wishes and were consensually agreed upon. Care Teams Cylinder Inspector Relationship Specialty Start Date End Date Annette See DO [address] [place] [address] PCP - General Family Medicine 11/04/19 documented as of this encounter
--- OUTSIDE RECORDS SUMMARY | 2025-01-04 05:32 | External Medical Summary ---
Author Name Unknown Address Unknown Organization K01:LABORATORY [facility] - [address] [facility] [address] Laboratory Report Ordering Provider Test Date Status MELISSA MELENDEZ 11/18/2024 08:22:50 Final Observation Date Value Abnormality Reference (Units ) Status Retic, % (auto) 11/18/2024 08:22:50 2.80 Above high normal 0.80-1.90 (%) Final Reticulocytes, Absolute 11/18/2024 08:22:50 98.0 31.3-100.1 (K/uL) Final Reticulocyte fraction, immature 11/18/2024 08:22:50 22.0 Above high normal 2.5-20.6 (%) Final Reticulocyte HGB 11/18/2024 08:22:50 34.2 29.7-37.4 (pg) Final Performing Location LABORATORY [facility] - [address] [facility] [address]
--- OUTSIDE RECORDS SUMMARY | 2025-01-04 05:32 | External Medical Summary | Summary of Care ---
Author Name Unknown Organization [facility] Address [address] [place] [address] Phone [phone] Care Team Providers Care Tent Worker Name Role Phone Annette See DO Primary Care Provider Encounter Details Date Type Department Care Team (Late st Contact Info) Description 11/28/2024 Orders Only Pharmacy, [place] [address] [place] [address] [facility] [address] [place] [address] Allergies Active Allergy Reactions Criticality Noted Date Comments Amoxicillin 02/21/2006 rash documented as of this encounter (statuses as of 11/28/2024) Medications 28-0.8 MG Oral Tablet Take by mouth. Active DHA 200 MG Oral Capsule Take by mouth. Active Iron 325 (65 Fe) MG Oral Tablet Take by mouth. Active Vitamin B-12 1000 MCG Oral Tablet (Cyanocobalamin)I ndications:Antepa rtum anemia complicating Take 1 Tablet by mouth in the morning. 30 Tablet 5 11/19/2024 Active documented as of this encounter (statuses as of 11/28/2024) Active Problems Problem Noted Date Diagnosed Date [...] as of this encounter (statuses as of 11/28/2024) Resolved Problems Problem Noted Date Diagnosed Date Resolved Date Encounter for insertion of Mirena IUD 06/18/2020 06/18/2020 IUD (intrauterine device) in place 06/18/2020 11/18/2024 Overview (06/18/2020): Mirena Urticaria 02/21/2006 documented as of this encounter (statuses as of 11/28/2024) Immunizations Name Administration Dates Next Due Seasonal [...] money to get more. 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 Not on file documented as of this encounter Plan of Treatment Upcoming Encounters Date Type Department Care Team (Late st Contact Info) Description 12/03/2024 8:15 AM EST Office Visit Gynecology/Obstetrics [facility] [address] [place] [address] Noelle Schaefer CRNP [address] [place] [address] 12/11/2024 10:00 AM EST Pharmacy Pharmacy, [address] [phone] [facility] [address] [place] [address] Health Maintenance Due Date Last Done Comments [...] this encounter Medical Devices Implanted Type Area Burning Plant Operator Device Identifier Shelf Expiration Date Model / Serial / Lot Mesh 3dmax 3.1x5.3in Lft Med - [id number] Implanted:Qty: 1 on 12/04/2020 by Josue Farr MD at OR [facility] Left: Lesley SAM BARD : KAMAR 01/03/2025 [id number] / / [id number] documented as of this encounter Advance Directives * Full Code (Latest Code Status on File) Date Activated Date Inactivated Comments 12/04/2020 12:25 PM 12/04/2020 8:17 PM This order reflects the patients wishes and were consensually agreed upon. Care Teams Tent Worker Relationship Specialty Start Date End Date Annette See DO [address] [place] [address] PCP - General Family Medicine 11/04/19 documented as of this encounter
--- OUTSIDE RECORDS SUMMARY | 2025-01-04 05:32 | External Medical Summary | Summary of Care ---
Author Name Unknown Organization [facility] Address [address] [facility] [place] [address] Phone [phone] Care Team Providers Care Fleet Service Clerk Name Role Phone Annette See DO Primary Care Provider Encounter Details Date Type Department Care Team (Late st Contact Info) Description 11/27/2024 Orders Only Gynecology/Obstetrics [facility] [address] [place] [address] Fe Tracy PA-C [address] [place] [address] Antepartum anemia complicating * Allergies Active Allergy [...] money to get more. 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 Not on file documented as of this encounter Plan of Treatment Upcoming Encounters Date Type Department Care Team (Late st Contact Info) Description 12/03/2024 8:15 AM EST Office Visit Gynecology/Obstetrics [facility] [address] [place] [address] Noelle Schaefer CRNP [address] [facility] [address] 12/11/2024 10:00 AM EST Pharmacy Pharmacy, [place] [address] [place], [place] [phone] Clinic, [place] [address] [place] [address] Health Maintenance Due Date Last Done Comments [...] this encounter Medical Devices Implanted Type Area Wash Operator Device Identifier Shelf Expiration Date Model / Serial / Lot Mesh 3dmax 3.1x5.3in Lft Med - [id number] Implanted:Qty: 1 on 12/04/2020 by Josue Farr MD at OR [facility] Left: Lesley SAM BARD : DAVOL 01/03/2025 [id number] / / [id number] documented as of this encounter Visit Diagnoses Diagnosis Antepartum anemia complicating - Primary Anemia, antepartum documented in this encounter Advance Directives * Full Code (Latest Code Status on File) Date Activated Date Inactivated Comments 12/04/2020 12:25 PM 12/04/2020 8:17 PM This order reflects the patients wishes and were consensually agreed upon. Care Teams Fleet Service Clerk Relationship Specialty Start Date End Date Annette See DO [address] [place] [address] PCP - General Family Medicine 11/04/19 documented as of this encounter
--- OUTSIDE RECORDS SUMMARY | 2025-01-04 05:32 | External Medical Summary | Summary of Care ---
Author Name Unknown Organization [facility] Address [address] [facility] [place] [address] Phone [phone] Care Team Providers Care Otolaryngology Nurse Name Role Phone Annette See DO Primary Care Provider Encounter Details Date Type Department Care Team (Late st Contact Info) Description 11/19/2024 Telephone Gynecology/Obstetrics [place] [address] [place] [address] Fe Tracy PA-C [address] [place] [address] Allergies Active Allergy Reactions Criticality Noted Date [...] money to get more. 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 * Telephone Encounter - Natalie Youssef RN - 11/19/2024 9:39 AM EST Attempted to call pt. Number picked up but no one could hear me. * Telephone Encounter - Myah Laurent LPN - 11/19/2024 8:42 AM EST ----- Message from Fe Tracy sent at 11/19/2024 8:07 AM EST ----- Please inform patient her recent CBC is continuing to show anemia. I have sent a prescription for vitamin B12 supplementation once daily to the [facility] pharmacy in [place]. Per protocol, I have also placed a referral to blood management. Thanks! Fe Tracy PA-C documented in this encounter Plan of Treatment Upcoming Encounters Date Type Department Care Team (Late st Contact Info) Description 12/03/2024 8:15 AM EST Office Visit Gynecology/Obstetrics [place] [address] [place] [address] Noelle Schaefer CRNP [address] [place] [address] Health Maintenance Due Date Last Done Comments [...] this encounter Medical Devices Implanted Type Area Paper Handler Device Identifier Shelf Expiration Date Model / Serial / Lot Mesh 3dmax 3.1x5.3in Lft Med - [id number] Implanted:Qty: 1 on 12/04/2020 by Josue Farr MD at OR [facility] Left: Groin CR BARD : DAVOL 01/03/2025 [id number] / / [id number] documented as of this encounter Advance Directives * Full Code (Latest Code Status on File) Date Activated Date Inactivated Comments 12/04/2020 12:25 PM 12/04/2020 8:17 PM This order reflects the patients wishes and were consensually agreed upon. Care Teams Otolaryngology Nurse Relationship Specialty Start Date End Date Annette See DO [address] [place] [address] PCP - General Family Medicine 11/04/19 documented as of this encounter
--- OUTSIDE RECORDS SUMMARY | 2025-01-04 05:32 | External Medical Summary ---
Author Name Unknown Address Unknown Organization K01:LAB[facility]ORY [facility] - [address] [place] [address] Laboratory Report Ordering Provider Test Date Status MELISSA MELENDEZ 11/18/2024 08:22:50 Final Observation Date Value Abnormality Reference (Units ) Status TSH 11/18/2024 08:22:50 2.09 0.27-4.20 (uIU/mL) Final Performing Location [facility] - [address] [place] [address]
--- OUTSIDE RECORDS SUMMARY | 2025-01-04 05:32 | External Medical Summary | Summary of Care ---
Author Name Unknown Organization [facility] Address [address] [facility] [place] [address] Phone [phone] Care Team Providers Care Assembler Liquid Center Name Role Phone Annette See DO Primary Care Provider Reason for Visit * Reason Onset Date Comments Other 11/27/2024 InFed Encounter Details Date Type Department Care Team (Late st Contact Info) Description 11/27/2024 Telephone Hematology/Oncology Treatment, [place] [address] [place] [address] Fe Tracy PA-C [address] [place] [address] Other (InFed ) Allergies Active Allergy Reactions [...] money to get more. 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 documented in this encounter Plan of Treatment Upcoming Encounters Date Type Department Care Team (Late st Contact Info) Description 12/03/2024 8:15 AM EST Office Visit Gynecology/Obstetrics [facility] [address] [facility] [place] [address] Noelle Schaefer CRNP [address] [place] [address] 12/11/2024 10:00 AM EST Pharmacy Pharmacy, [place] [address] [place], [place] [phone] Clinic, [place] [address] [place] [address] Health Maintenance Due Date Last Done Comments [...] this encounter Medical Devices Implanted Type Area Pile Driver Engineer Device Identifier Shelf Expiration Date Model / Serial / Lot Mesh 3dmax 3.1x5.3in Lft Med - [id number] Implanted:Qty: 1 on 12/04/2020 by Josue Farr MD at OR [facility] Left: Lesley SAM BARD : KAMAR 01/03/2025 [id number] / / [id number] documented as of this encounter Advance Directives * Full Code (Latest Code Status on File) Date Activated Date Inactivated Comments 12/04/2020 12:25 PM 12/04/2020 8:17 PM This order reflects the patients wishes and were consensually agreed upon. Care Teams Assembler Liquid Center Relationship Specialty Start Date End Date Annette See DO [address] [place] [address] PCP - General Family Medicine 11/04/19 documented as of this encounter
--- OUTSIDE RECORDS SUMMARY | 2025-01-04 05:32 | External Medical Summary | Summary of Care ---
Author Name Unknown Organization [facility] Address [address] [place] [address] Phone [phone] Care Team Providers Care Degree Clerk Name Role Phone Annette See DO Primary Care Provider Reason for Visit * Reason Comments Blood Management Program Encounter Details Date Type Department Care Team (Late st Contact Info) Description 11/19/2024 Documentation Patient Blood Management, [place] [address] [place] [address] Tao Paz RN Allergies Active Allergy Reactions Criticality Noted Date [...] money to get more. 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 Not on file documented as of this encounter Progress Notes * Tao Paz RN - 11/19/2024 9:57 AM EST REFERRAL - Patient Blood Management Name: Nani Carver REQUESTING SERVICE: [facility] OB REASON FOR REFERRAL: new evaluation outpatient, anemia in [place]: 01/01/25 Anemia Evaluation: Latest Reference Range & Units 10/11/24 15:30 11/18/24 08:22 HGB 12.0 - 15.3 g/dL 10.8 (L) 10.7 (L) HCT 36.0 - 45.2 % 30.9 (L) 31.9 (L) Iron 33 - 151 ug/dL 110 88 Iron Binding Capacity 250 - 425 ug/dL 358 368 Transferrin Saturation Percent 15 - 55 % 31 24 Ferritin 13 - 150 ng/mL 82 57 Vitamin B12 232 - 1,245 pg/mL 204 (L) Folic Acid >4.5 ng/mL >20.0 Immature Reticuloctye Fraction 2.5 - 20.6 % 14.3 22.0 (H) Reticulocyte Hemoglobin 29.7 - 37.4 pg 33.6 34.2 HGB did not improve on PO iron trial. Recommend EUGENIO per OB MTM guidelines. Infusion at [facility]. Thank you for allowing Blood Management to participate in the care of this patient. documented in this encounter Plan of Treatment Upcoming Encounters Date Type Department Care Team (Late st Contact Info) Description 12/03/2024 8:15 AM EST Office Visit Gynecology/Obstetrics [facility] [address] [place] [address] Noelle Schaefer CRNP [address] [place] [address] Health Maintenance Due Date Last Done Comments [...] this encounter Medical Devices Implanted Type Area Curtain Cleaner Device Identifier Shelf Expiration Date Model / Serial / Lot Mesh 3dmax 3.1x5.3in Lft Med - [id number] Implanted:Qty: 1 on 12/04/2020 by Josue Farr MD at OR [facility] Left: Groin CR BARD : NIKUNJOL 01/03/2025 [id number] / / [id number] documented as of this encounter Advance Directives * Full Code (Latest Code Status on File) Date Activated Date Inactivated Comments 12/04/2020 12:25 PM 12/04/2020 8:17 PM This order reflects the patients wishes and were consensually agreed upon. Care Teams Degree Clerk Relationship Specialty Start Date End Date Annette See DO [address] [place] [address] PCP - General Family Medicine 11/04/19 documented as of this encounter
--- OUTSIDE RECORDS SUMMARY | 2025-01-04 05:33 | External Medical Summary ---
Author Name Unknown Address Unknown Organization K01:[facility] [place] [address] [place] [address] Laboratory Report Ordering Provider Test Date Status MELISSA MELENDEZ 11/18/2024 08:22:50 Final Observation Date Value Abnormality Reference (Units ) Status Ferritin 11/18/2024 08:22:50 57 13-150 (ng /mL) Final Performing Location [facility] - [address] [place] [address]
--- OUTSIDE RECORDS SUMMARY | 2025-01-04 05:33 | External Medical Summary ---
Author Name Unknown Address Unknown Organization [id number]:LABORATORY [facility] [place] - [address] [place] [address] Laboratory Report Ordering Provider Test Date Status MELISSA MELENDEZ 11/18/2024 08:22:50 Final Observation Date Value Abnormality Reference (Units ) Status Creatinine 11/18/2024 08:22:50 0.5 0.5-1.0 (mg/dL) Final Glomerular filtration rate/1.73 sq M.predicted [Volume Rate/Area] in Serum, Plasma or Blood by Creatinine-based formula (CKD-EPI) 11/18/2024 08:22:50 >90 >=60 (mL/min) Final eGFR is calculated based on the CKD-EPI 2020 equation. Performing Location LABORATORY [facility] - [address] [place] [address]
--- OUTSIDE RECORDS SUMMARY | 2025-01-04 05:33 | External Medical Summary ---
Author Name Unknown Address Unknown Organization [id number]:LAB[facility]ATORY [facility] [place] [address] [facility] [address] Laboratory Report Ordering Provider Test Date Status SIDNEY GAYTAN 10/11/2024 15:30:19 Final Observation Date Value Abnormality Reference (Units ) Status Treponema pallidum Ab [Presence] in Serum by Immunoassay 10/11/2024 15:30:19 Nonreactive Nonreactive Final No serologic evidence of syp hilis. No additional testing clinicially indicated at this time. Consider repeat testing in 2-4 weeks if acute or primary syphilis is suspected. Performing Location LABORATORY [facility] [place] - [address] [place] [address]
--- OUTSIDE RECORDS SUMMARY | 2025-01-04 05:33 | External Medical Summary ---
Author Name Unknown Address Unknown Organization [id number]:LABORATORY [facility] [place] [facility] - [address] [place] [address] Laboratory Report Ordering Provider Test Date Status SIDNEY GAYTAN 10/11/2024 15:30:19 Final Observation Date Value Abnormality Reference (Units ) Status Glucose [Moles/volume] in Serum or Plasma --1 hour post 50 g glucose PO 10/11/2024 15:30:19 130 Above high normal 70-129 (mg/dL) Final Performing Location LABORATORY [facility] [place] [facility]1 0 - [address] [place] [address]
--- OUTSIDE RECORDS SUMMARY | 2025-01-04 05:33 | External Medical Summary ---
Author Name Unknown Address Unknown Organization K0G:LABORATORY [place] [facility] - [address] [place] [address] Laboratory Report Ordering Provider Test Date Status SIDNEY GAYTAN 10/18/2024 07:22:04 Final Based on ACOG guideline, ges tational diabetes mellitus is diagnosed when any of the following is met:
Fasting is greater than or equal to 95 mg/dL
1 hour is greater than or equal to 180 mg/dL
2 hour is greater than or equal to 155 mg/dL
3 hour is greater than or equal to 140 mg/dL Observation Date Value Abnormality Reference (Units ) Status Glucose, fasting 10/18/2024 07:22:04 79 70- 94 (mg/dL) Final Performing Location LABORATORY [facility] [place] [facility] 0 - [address] [place] [address]
--- OUTSIDE RECORDS SUMMARY | 2025-01-04 05:33 | External Medical Summary ---
Author Name Unknown Address Unknown Organization K0G:LABORATORY [facility] [place] [facility] - [address] [place] [address] Laboratory Report Ordering Provider Test Date Status SIDNEY GAYTAN 10/11/2024 15:30:19 Final Observation Date Value Abnormality Reference (Units ) Status WBC, Total 10/11/2024 15:30:19 7.76 4.00-10.8 0 (K/uL) Final RBC 10/11/2024 15:30:19 3.46 3.85-5.15 (M/uL) Final Hemoglobin 10/11/2024 15:30:19 10.8 Below low normal 12 .0-15.3 (g/dL) Final Anemia reflex testing trigge rs on a HGB < 12.0 for Females and HGB < 13.0 for Males in accordance with the WHO Anemia Guidelines
Anemia reflex testing triggers on a HGB < 12.0 for Females and HGB < 13.0 for Males in accordance with the WHO Anemia Guidelines HCT 10/11/2024 15:30:19 30.9 Below low normal 36. 0-45.2 (%) Final MCV 10/11/2024 15:30:19 89.3 81.5-97.5 (fL) Final MCH 10/11/2024 15:30:19 31.2 27.0-34.0 (pg) Final MCHC 10/11/2024 15:30:19 35.0 32.0-36.0 (g/dL) Final RDW 10/11/2024 15:30:19 12.6 11.5-15.5 (%) Final Platelets 10/11/2024 15:30:19 190 140-400 (K /uL) Final MPV 10/11/2024 15:30:19 9.5 6.6-11.1 ( fL) Final Performing Location LABORATORY [facility] [place] [facility] 0 - [address] [place] [address]
--- OUTSIDE RECORDS SUMMARY | 2025-01-04 05:33 | External Medical Summary ---
Author Name Unknown Address Unknown Organization K0G:LABORATORY [place] 57[facility] - [address] [place] [address] Laboratory Report Ordering Provider Test Date Status SIDNEY GAYTAN 10/11/2024 15:30:19 Final Observation Date Value Abnormality Reference (Units ) Status SYNC LEUKOCYTES IN BLOOD BY AUTOMATED COUNT 10/11/2024 15:30:19 7.76 4.00-10.80 (K/uL) Final Segs 10/11/2024 15:30:19 76.8 Above high normal 40.0-75.0 (%) Final Lymphs % 10/11/2024 15:30:19 15.3 Below low normal 18.0-42.0 (%) Final Monos 10/11/2024 15:30:19 6.4 1.0-11.0 (%) Final Eosinophils 10/11/2024 15:30:19 1.2 0.0-6.0 (%) Final Basos 10/11/2024 15:30:19 0.3 0.0-2.0 (%) Final Absolute Segs 10/11/2024 15:30:19 5.96 1.80-7.70 (K/uL) Final Lymphs, absolute 10/11/2024 15:30:19 1.19 1.00-4.80 (K/ul) Final Monos, Abs 10/11/2024 15:30:19 0.50 0.00-1.10 (K/uL) Final Eos, Abs 10/11/2024 15:30:19 0.09 0.00-0.70 (K/uL) Final Basos, Abs 10/11/2024 15:30:19 0.02 0.00-0.20 (K/uL) Final Performing Location LABORATORY [place] 57[address] 0 - [address] [place] [address]
--- OUTSIDE RECORDS SUMMARY | 2025-01-04 05:33 | External Medical Summary | Summary of Care ---
Author Name Unknown Organization [facility] Address [address] [facility] [place] [address] Phone [phone] Care Team Providers Care Cancer Researcher Name Role Phone Annette See DO Primary Care Provider Reason for Visit * Reason Comments Return Visit Encounter Details Date Type Department Care Team (Late st Contact Info) Description 10/11/2024 2:45 PM EST Office Visit Gynecology/Obstetric s [facility] [address] [place] [address] Noelle Schaefer CRNP [address] [place] [address] Encounter for supervision of other normal , unspecified trimester*; Thrombophlebitis; Rh negative status during in third trimester Allergies Active Allergy Reactions Criticality Noted Date Comments Amoxicillin 02/21/2006 rash documented as of this encounter (statuses as of 10/11/2024) Medications 28-0.8 MG Oral Tablet Take by mouth. Active DHA 200 MG Oral Capsule Take by mouth. Active documented as of this encounter (statuses as of 10/11/2024) Active Problems Problem Noted Date Diagnosed Date Rh negative status during 06/04/2024 Encounter for supervision of other normal , unspecified trimester 06/03/2024 Overview (06/03/2024): Considering home Thrombophlebitis 06/03/2024 Overview (06/03/2024): Left inguinal thrombophlebitis after last delivery, same area of inguinal hernia. Was on lovenox for 6 weeks pelvic thrombophlebitis 06/18/2020 IUD (intrauterine device) in place 06/18/2020 Overview (06/18/2020): Mirena Allergic urticaria 02/21/2006 Allergic rhinitis 02/21/2006 CHR ALLRG CONJUNCTIV NEC 02/21/2006 Estimated Date of Delivery Comme nts Yes 01/01/2025 Based on last me nstrual period of 03/27/2024 documented as of this encounter (statuses as of 10/11/2024) Resolved Problems Problem Noted Date Diagnosed Date Resolved Date Encounter for insertion of Mirena IUD 06/18/2020 06/18/2020 Urticaria 02/21/2006 documented as of this encounter (statuses as of 10/11/2024) Immunizations Name Administration Dates Next Due Seasonal [...] money to get more. 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 Pt declines Rhogam and TDAP today. She has no concerns. Baby is active. No contractions, bleeding, LOF. . LORENZO Valladares * Agnes Huntley CMA - 10/11/2024 2:46 PM EST 28w2d Denies any concerns documented in this encounter Plan of Treatment Upcoming Encounters Date Type Department Care Team (Late st Contact Info) Description 10/31/2024 9:00 AM EST Office Visit Gynecology/Obstetrics [facility] [address] [place] [address] Fe Tracy PA-C [address] [place] [address] Health Maintenance Due Date Last Done Comments [...] 5 Years) and At-Risk Patients (6 to 64 Years) Aged Out No longer eligible based on patient's age to complete this topic documented as of this encounter Medical Devices Implanted Type Area Fire Engine Operator Device Identifier Shelf Expiration Date Model / Serial / Lot Mesh 3dmax 3.1x5.3in Lft Med - [id number] Implanted:Qty: 1 on 12/04/2020 by Josue Farr MD at OR [facility] Left: Groin CR BARD : DAVOL 01/03/2025 [id number] / / [id number] documented as of this encounter Visit Diagnoses Diagnosis Encounter for supervision of other normal , unspecified trimester- Primary Thrombophlebitis Phlebitis and thrombophlebitis of unspecified site Rh negative status during in third trimester documented in this encounter Advance Directives * Full Code (Latest Code Status on File) Date Activated Date Inactivated Comments 12/04/2020 12:25 PM 12/04/2020 8:17 PM This order reflects the patients wishes and were consensually agreed upon. Care Teams Cancer Researcher Relationship Specialty Start Date End Date Annette See DO [address] [place] [address] PCP - General Family Medicine 11/04/19 documented as of this encounter
--- OUTSIDE RECORDS SUMMARY | 2025-01-04 05:33 | External Medical Summary ---
Author Name Unknown Address Unknown Organization K0G:[facility] [place] [facility] - [address] [place] [address] Laboratory Report Ordering Provider Test Date Status SIDNEY GAYTAN 10/18/2024 10:25:47 Final Observation Date Value Abnormality Reference (Units ) Status Glucose [Mass/volume] in Serum or Plasma --3 hours post dose glucose 10/18/2024 10:25:47 85 70-139 (mg/dL) Final Performing Location [facility] [place] [facility] 0 - [address] [place] [address]
--- OUTSIDE RECORDS SUMMARY | 2025-01-04 05:33 | External Medical Summary | Summary of Care ---
Author Name Unknown Organization [facility] Address [address] [facility] [place] [address] Phone [phone] Care Team Providers Care Laborer [employer] Name Role Phone Annette See DO Primary Care Provider Reason for Visit * Reason Comments Outpatient Testing Encounter Details Date Type Department Care Team (Late st Contact Info) Description 10/11/2024 2:30 PM EST Laboratory Laboratory, [facility] [address] [facility] [place] [phone] [facility] [address] [facility] [place] [address] Encounter for supervision of other normal , unspecified trimester Allergies Active Allergy Reactions Criticality Noted [...] money to get more. Never true 08/15/2024 [place] Depression Scale Answer Date Recorded [place] Depression Scale Total 0 06/03/2024 The thought [...] No 08/15/2024 Does the household have a [facility] source of income? 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 Not on file documented as of this encounter Plan of Treatment Upcoming Encounters Date Type Department Care Team (Late st Contact Info) Description 10/31/2024 9:00 AM EST Office Visit Gynecology/Obstetrics [facility] [address] [place] [address] Fe Tracy PA-C [address] [place] [address] Pending Results Name Type Priority Associated Diagnoses Date /Time 50-G GESTATIONAL GLUCOSE, 1 HOUR Lab Routine Encounter for supervision of other normal , unspecified trimester 10/11/2024 3:30 PM EST CBC WITH WBC DIFFERENTIAL AND ANEMIA REFLEX WORKUP Lab Routine Encounter for supervision of other normal , unspecified trimester 10/11/2024 3:30 PM EST TYPE AND SCREEN Lab Routine Encounter for supervision of other normal , unspecified trimester 10/11/2024 3:30 PM EST SYPHILIS ANTIBODY SCREEN WITH REFLEX TO RPR Lab Routine Encounter for supervision of other normal , unspecified trimester 10/11/2024 3:30 PM EST ANEMIA REFLEX CHEMISTRY HOLD Lab Routine Encounter for supervision of other normal , unspecified trimester 10/11/2024 3:30 PM EST SYPHILIS ANTIBODY SCREEN Lab Routine Encounter for supervision of other normal , unspecified trimester 10/11/2024 3:30 PM EST RETICULOCYTE PANEL Lab Routine Encounter for supervision of other normal , unspecified trimester 10/11/2024 3:30 PM EST Health Maintenance Due Date Last Done [...] this encounter Medical Devices Implanted Type Area Casing Sewer Device Identifier Shelf Expiration Date Model / Serial / Lot Mesh 3dmax 3.1x5.3in Lft Med - [id number] Implanted:Qty: 1 on 12/04/2020 by Josue Farr MD at OR [facility] Left: Lesley CR BARD : DAVOL 01/03/2025 [id number] / / [id number] documented as of this encounter Procedures Procedure Name Priority Date/Time Associated Diagnosis Comments ANEMIA CBC Routine 10/11/2024 3:30 PM EST Encounter for supervision of other normal , unspecified trimester DIFFERENTIAL, AUTOMATED Routine 10/11/2024 3:30 PM EST Encounter for supervision of other normal , unspecified trimester documented in this encounter Results * (ABNORMAL) DIFFERENTIAL, AUTOMATED (10/11/2024 3:30 PM EST) WBC 7.76 4.00 - 10.80 K/uL 10/11/2024 3:38 PM EST [facility] [place] [facility] Neutrophils % 76.8(H) 40.0 - 75.0 % 10/11/2024 3:38 PM EST [facility] [place] [facility] Lymphocytes % 15.3(L) 18.0 - 42.0 % 10/11/2024 3:38 PM EST [facility] [place] [facility] Monocytes % 6.4 1.0 - 11.0 % 10/11/2024 3:38 PM EST [facility] [place] [facility] Eosinophils % 1.2 0.0 - 6.0 % 10/11/2024 3:38 PM EST [facility] [place] [facility] Basophils % 0.3 0.0 - 2.0 % 10/11/2024 3:38 PM EST [facility] [place] [facility] Absolute Neutrophils 5.96 1.80 - 7.70 K/uL 10/11/2024 3:38 PM EST [facility] [place] [facility] Absolute Lymphocytes 1.19 1.00 - 4.80 K/ul 10/11/2024 3:38 PM EST [facility] [place] [facility] Absolute Monocytes 0.50 0.00 - 1.10 K/uL 10/11/2024 3:38 PM EST [facility] [place] [facility] Absolute Eosinophils 0.09 0.00 - 0.70 K/uL 10/11/2024 3:38 PM EST [facility] Absolute Basophils 0.02 0.00 - 0.20 K/uL 10/11/2024 3:38 PM EST LABORATORY [place] 57[facility]10 Blood Venous blood specimen / Unknown Venipuncture / Unknown 10/11/2024 3:30 PM EST 10/11/2024 3:30 PM EST us Soco Jones PA-C LAB BLOOD ORDERABLES Final R esult LABORATORY [place] [facility] [place] [address] * (ABNORMAL) ANEMIA CBC (10/11/2024 3:30 PM EST) WBC 7.76 4.00 - 10.80 K/uL 10/11/2024 3:38 PM EST LABORATORY [place] [facility]10 RBC 3.46 3.85 - 5.15 M/uL 10/11/2024 3:38 PM EST [facility] HGB 10.8(L) 12.0 - 15.3 g/dL 10/11/2024 3:38 PM EST [facility] Comment: Anemia reflex testing triggers on a HGB < 12.0 for Females and HGB < 13.0 for Males in accordance with the WHO Anemia Guidelines Anemia reflex testing triggers on a HGB < 12.0 for Females and HGB < 13.0 for Males in accordance with the WHO Anemia Guidelines HCT 30.9(L) 36.0 - 45.2 % 10/11/2024 3:38 PM EST [facility] MCV 89.3 81.5 - 97.5 fL 10/11/2024 3:38 PM EST [facility] MCH 31.2 27.0 - 34.0 pg 10/11/2024 3:38 PM EST [facility] MCHC 35.0 32.0 - 36.0 g/dL 10/11/2024 3:38 PM EST [facility] RDW 12.6 11.5 - 15.5 % 10/11/2024 3:38 PM EST LAB[facility] [place] [facility] PLT 190 140 - 400 K/uL 10/11/2024 3:38 PM EST [facility] [place] [facility] MPV 9.5 6.6 - 11.1 fL 10/11/2024 3:38 PM EST [facility] [place] [facility] Blood Venous blood specimen / Unknown Venipuncture / Unknown 10/11/2024 3:30 PM EST 10/11/2024 3:30 PM EST us Soco Jones PA-C LAB BLOOD ORDERABLES Final R esult [facility] [place] [facility] [place] [address] documented in this encounter Visit Diagnoses Diagnosis Encounter for supervision of other normal , unspecified trimester documented in this encounter Advance Directives * Full Code (Latest Code Status on File) Date Activated Date Inactivated Comments 12/04/2020 12:25 PM 12/04/2020 8:17 PM This order reflects the patients wishes and were consensually agreed upon. Care Teams Laborer [employer] Relationship Specialty Start Date End Date Annette See DO [address] [place] [address] PCP - General Family Medicine 11/04/19 documented as of this encounter
--- OUTSIDE RECORDS SUMMARY | 2025-01-04 05:33 | External Medical Summary | Summary of Care ---
Author Name Unknown Organization [facility] Address [address] [facility] [place] [address] Phone [phone] Care Team Providers Care Radio Recorder Name Role Phone Annette See DO Primary Care Provider Reason for Referral * (Within 10 days (routine)) Specialty Diagnoses / Procedures Referred By Contkamilah t Referred To Contact Hyperbaric Medicine Diagnoses Antepartum anemia complicating Soco Jones PA-C [address] [place] [address] Phone: tel: fax: Referral ID Status Reason Start Date Expiration Date Visits Re quested Visits Authorized Question Answer Referral Priority Within 10 days (routine) Where should this appointment be scheduled? Arvind Encounter Details Date Type Department Care Team (Late st Contact Info) Description 10/14/2024 Telephone Gynecology/Obstetrics [facility] [address] [place] [address] Soco Jones PA-C [address] [place] [address] Allergies Active Allergy Reactions Criticality Noted Date Comments Amoxicillin 02/21/2006 rash documented as of this encounter (statuses as of 10/16/2024) Medications 28-0.8 MG Oral Tablet Take by mouth. Active DHA 200 MG Oral Capsule Take by mouth. Active documented as of this encounter (statuses as of 10/16/2024) Active Problems Problem Noted Date Diagnosed Date Antepartum anemia complicating 024 Overview (10/14/2024): Hgb 10.8 with third tri labs Recommended IV iron based on OB protocol. Rh negative status during 06/04/2024 Encounter for [...] as of this encounter (statuses as of 10/16/2024) Resolved Problems Problem Noted Date Diagnosed Date Resolved Date Encounter for insertion of Mirena IUD 06/18/2020 06/18/2020 Urticaria 02/21/2006 documented as of this encounter (statuses as of 10/16/2024) Immunizations Name Administration Dates Next Due Seasonal [...] money to get more. 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 * Telephone Encounter - Brianna Pelaez LPN - 10/16/2024 1:20 PM EST Patient notified and agreeable to IV iron infusions Patient notified of abnormal glucola. The order has been placed in epic. Patient. advised to be NPO after 10pm the night before the test.The patient must stay on the premises for the entire time of the test. Patient counseled to take something to eat for after testing. Patient transferred to appt to schedule. * Telephone Encounter - Brianna Pelaez LPN - 10/14/2024 4:30 PM EST left message for patient to call office * Telephone Encounter - Soco Jones PA-C - 10/14/2024 4:07 PM EST Please let her know that her labs indicated anemia. Hgb 10.8. Would recommend IV iron for this based on OB protocol. If agreeable will place referral. She unfortunately did not pass 1 hour gtt. Needs 3 hour gtt to evaluate further for GDM. Please give instructions. Will need to fast ahead of next test. Will take 3 hours and should have snack ready after. Please help schedule with lab if able. Soco Jones PA-C \ documented in this encounter Plan of Treatment Upcoming Encounters Date Type Department Care Team (Late st Contact Info) Description 10/18/2024 9:00 AM EST Laboratory Laboratory, [facility] [address] [place] [phone] [facility] [address] [place] [address] 10/31/2024 9:00 AM EST Office Visit Gynecology/Obstetrics [facility] [address] [place] [address] Fe Tracy PA-C [address] [place] [address] Scheduled Orders Name Type Priority Associated Diagnoses Orde r Schedule GESTATIONAL GLUCOSE TOLERANCE, 3 HOUR Lab Routine Abnormal glucose tolerance in mother complicating Expected: 10/14/2024, Expires: 10/14/2025 Scheduled Referrals Name Type Priority Associated Diagnoses Orde r Schedule BLOOD MANAGEMENT REFERRAL Referral Within 10 days (routine) Antepartum anemia complicating Ordered: 10/16/2024 Health Maintenance Due Date Last Done Comments [...] this encounter Medical Devices Implanted Type Area Graves Registration Specialist Device Identifier Shelf Expiration Date Model / Serial / Lot Mesh 3dmax 3.1x5.3in Lft Med - [id number] Implanted:Qty: 1 on 12/04/2020 by Josue Farr MD at OR [facility] Left: Groin CR BARD : DAVOL 01/03/2025 [id number] / / [id number] documented as of this encounter Visit Diagnoses Diagnosis Abnormal glucose tolerance in mother complicating - Primary Abnormal maternal glucose tolerance, complicating , childbirth, or the puerperium, unspecified as to episode of care Antepartum anemia complicating Anemia, antepartum documented in this encounter Advance Directives * Full Code (Latest Code Status on File) Date Activated Date Inactivated Comments 12/04/2020 12:25 PM 12/04/2020 8:17 PM This order reflects the patients wishes and were consensually agreed upon. Care Teams Radio Recorder Relationship Specialty Start Date End Date Anentte See DO [address] [place] [address] PCP - General Family Medicine 11/04/19 documented as of this encounter
--- OUTSIDE RECORDS SUMMARY | 2025-01-04 05:33 | External Medical Summary | Summary of Care ---
Author Name Unknown Organization [facility] Address [address] [facility] [place] [address] Phone [phone] Care Team Providers Care Light Rail Operator Name Role Phone Annette See DO Primary Care Provider Reason for Visit * Reason Comments Outpatient Testing Encounter Details Date Type Department Care Team (Late st Contact Info) Description 10/18/2024 7:20 AM EST Laboratory Laboratory, [facility] [address] [facility] [place] [address] [facility] [address] [facility] [place] [address] Abnormal glucose tolerance in mother complicating Allergies Active Allergy Reactions Criticality Noted Date Comments Amoxicillin 02/21/2006 rash documented as of this encounter (statuses as of 10/18/2024) Medications 28-0.8 MG Oral Tablet Take by mouth. Active DHA 200 MG Oral Capsule Take by mouth. Active documented as of this encounter (statuses as of 10/18/2024) Active Problems Problem Noted Date Diagnosed Date Antepartum anemia complicating 024 Overview (10/17/2024): Hgb 10.8 with third tri labs Recommended IV iron based on OB protocol. Pt declined, opted for start of PO iron Recheck CBC 32-33 wks Rh negative status during 06/04/2024 Encounter for [...] as of this encounter (statuses as of 10/18/2024) Resolved Problems Problem Noted Date Diagnosed Date Resolved Date Encounter for insertion of Mirena IUD 06/18/2020 06/18/2020 Urticaria 02/21/2006 documented as of this encounter (statuses as of 10/18/2024) Immunizations Name Administration Dates Next Due Seasonal [...] money to get more. Never true 08/15/2024 [place] Depression Scale Answer Date Recorded [place] Depression Scale Total 0 06/03/2024 The thought [...] No 08/15/2024 Does the household have a [facility] source of income? 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 Not on file documented as of this encounter Plan of Treatment Upcoming Encounters Date Type Department Care Team (Late st Contact Info) Description 10/31/2024 9:00 AM EST Office Visit Gynecology/Obstetrics [facility] [address] [place] [address] Fe Tracy PA-C [address] [place] [address] Pending Results Name Type Priority Associated Diagnoses Date /Time GESTATIONAL GLUCOSE TOLERANCE, 3 HOUR Lab Routine Abnormal glucose tolerance in mother complicating 10/18/2024 7:22 AM EST 100-G GESTATIONAL GLUCOSE, 2 HOUR Lab Routine Abnormal glucose tolerance in mother complicating 10/18/2024 9:29 AM EST 100-G GESTATIONAL GLUCOSE, 3 HOUR Lab Routine Abnormal glucose tolerance in mother complicating 10/18/2024 10:25 AM EST Health Maintenance Due Date Last [...] this encounter Medical Devices Implanted Type Area Caustic Preparer Device Identifier Shelf Expiration Date Model / Serial / Lot Mesh 3dmax 3.1x5.3in Lft Med - [id number] Implanted:Qty: 1 on 12/04/2020 by Josue Farr MD at OR [facility] Left: Groin CR BARD : DAVOL 01/03/2025 [id number] / / [id number] documented as of this encounter Procedures Procedure Name Priority Date/Time Associated Diagnosis Comments 100-G GESTATIONAL GLUCOSE, 1 HOUR Routine 10/18/2024 8:24 AM EST Abnormal glucose tolerance in mother complicating 100-G GESTATIONAL GLUCOSE, FASTING Routine 10/18/2024 7:22 AM EST Abnormal glucose tolerance in mother complicating documented in this encounter Results * 100-G GESTATIONAL GLUCOSE, 1 HOUR (10/18/2024 8:24 AM EST) 100-g Gestational Glucose, 1 Hour 107 70 - 179 mg/dL 10/18/2024 9:52 AM EST [facility] [place] [facility]10 Blood Venous blood specimen / Unknown Venipuncture / Unknown 10/18/2024 8:24 AM EST 10/18/2024 8:24 AM EST Soco Jones PA-C LAB BLOOD ORDERABLES Final R esult LABORATORY [place] 57-10 [address] [place] [address] * 100-G GESTATIONAL GLUCOSE, FASTING (10/18/2024 7:22 AM EST) 100-g Gestational Glucose, Fasting 79 70 - 94 mg/dL 10/18/2024 8:18 AM EST LAB[facility] [place] 57-10 Blood Venous blood specimen / Unknown Venipuncture / Unknown 10/18/2024 7:22 AM EST 10/18/2024 7:22 AM EST N[facility]ative [facility] - 10/18/2024 8:18 AM EST Based on ACOG guideline, gestational diabetes mellitus is diagnosed when any of the following is met: Fasting is greater than or equal to 95 mg/dL 1 hour is greater than or equal to 180 mg/dL 2 hour is greater than or equal to 155 mg/dL 3 hour is greater than or equal to 140 mg/dL us Soco Jones PA-C LAB BLOOD ORDERABLES Final R esult LAB[facility]ATORY [place] 57-10 [address] [place] [address] documented in this encounter Visit Diagnoses Diagnosis Abnormal glucose tolerance in mother complicating Abnormal maternal glucose tolerance, complicating , childbirth, or the puerperium, unspecified as to episode of care documented in this encounter Advance Directives * Full Code (Latest Code Status on File) Date Activated Date Inactivated Comments 12/04/2020 12:25 PM 12/04/2020 8:17 PM This order reflects the patients wishes and were consensually agreed upon. Care Teams Light Rail Operator Relationship Specialty Start Date End Date Annette See DO [address] [place] [address] PCP - General Family Medicine 11/04/19 documented as of this encounter
--- OUTSIDE RECORDS SUMMARY | 2025-01-04 05:33 | External Medical Summary ---
Author Name Unknown Address Unknown Organization K01:[place] [place] [address] [place] [address] Laboratory Report Ordering Provider Test Date Status SIDNEY GAYTAN 10/11/2024 15:30:19 Final Observation Date Value Abnormality Reference (Units ) Status Ferritin 10/11/2024 15:30:19 82 13-150 (ng /mL) Final Performing Location [facility] - [address] [place] [address]
--- OUTSIDE RECORDS SUMMARY | 2025-01-04 05:33 | External Medical Summary ---
Author Name Unknown Address Unknown Organization [id number]:LABORATORY [facility] 57[facility] - [address] [place] [address] Laboratory Report Ordering Provider Test Date Status SIDNEY GAYTAN 10/18/2024 08:24:59 Final Observation Date Value Abnormality Reference (Units ) Status Glucose [Mass/volume] in Serum or Plasma --1 hour post dose glucose 10/18/2024 08:24:59 107 70-179 (mg/dL) Final Performing Location LABORATORY [facility] 57-1 0 - [address] [place] [address]
--- OUTSIDE RECORDS SUMMARY | 2025-01-04 05:33 | External Medical Summary ---
Author Name Unknown Address Unknown Organization K01:[facility]ATORY [facility] [place] [facility] - [address] [place] [address] Laboratory Report Ordering Provider Test Date Status SIDNEY GAYTAN 10/11/2024 15:30:19 Final Observation Date Value Abnormality Reference (Units ) Status ABO 10/11/2024 15:30:19 B Final RH 10/11/2024 15:30:19 Negative Final RED BLOOD CELL ANTIBODY SCREEN 10/11/2024 15:30:19 Negative Final SPECIMEN EXPIRATION DATE 10/11/2024 15:30:19 10/14/2024 23:59 Final Performing Location LAB[facility]ATORY [facility] [place] [facility] - [address] [place] [address]
--- OUTSIDE RECORDS SUMMARY | 2025-01-04 05:33 | External Medical Summary ---
Author Name Unknown Address Unknown Organization K0G:LABORATORY [facility] 57-10 - [address] [place] [address] Laboratory Report Ordering Provider Test Date Status SIDNEY GAYTAN 10/18/2024 09:29:07 Final Observation Date Value Abnormality Reference (Units ) Status Glucose, 2-hr post glucose challenge 10/18/2024 09:29:07 111 70-154 (mg/dL) Final Performing Location LABORATORY [facility] 57-1 0 - [address] [place] [address]
--- OUTSIDE RECORDS SUMMARY | 2025-01-04 05:33 | External Medical Summary ---
Author Name Unknown Address Unknown Organization K01:LABORATORY [facility] [place] - [address] [place] [address] Laboratory Report Ordering Provider Test Date Status SIDNEY GAYTAN 10/11/2024 15:30:19 Final Observation Date Value Abnormality Reference (Units ) Status Retic, % (auto) 10/11/2024 15:30:19 2.41 Above high normal 0.80-1.90 (%) Final Reticulocytes, Absolute 10/11/2024 15:30:19 83.1 31.3-100.1 (K/uL) Final Reticulocyte fraction, immature 10/11/2024 15:30:19 14.3 2.5-20.6 (%) Final Reticulocyte HGB 10/11/2024 15:30:19 33.6 29.7-37.4 (pg) Final Performing Location LABORATORY [facility] [place] - [address] [place] [address]
--- OUTSIDE RECORDS SUMMARY | 2025-01-04 05:33 | External Medical Summary | Summary of Care ---
Author Name Unknown Organization [facility] Address [address] [facility] [place] [address] Phone [phone] Care Team Providers Care Track Watchman Name Role Phone Annette See DO Primary Care Provider Reason for Visit * Reason Comments Blood Management Program Encounter Details Date Type Department Care Team (Late st Contact Info) Description 10/16/2024 Documentation Patient Blood Management, [facility] [place] [address] Natalie Rebolledo, RN Allergies Active Allergy Reactions Criticality Noted [...] money to get more. Never true 08/15/2024 [place] Depression Scale Answer Date Recorded [place] Depression Scale Total 0 06/03/2024 The thought [...] No 08/15/2024 Does the household have a [facility] source [facility] income? 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 Not on file documented as of this encounter Progress Notes * Natalie Rebolledo, RN - 10/16/2024 3:09 PM EST REFERRAL - Patient Blood Management Name: Nani Carver REQUESTING SERVICE: [facility] REASON FOR REFERRAL: new evaluation outpatient, anemia in [place]: 01/01/2025 Anemia Evaluation: Latest Reference Range & Units 10/11/24 15:30 HGB 12.0 - 15.3 g/dL 10.8 (L) HCT 36.0 - 45.2 % 30.9 (L) IRON SCREEN, INCLUDING TIBC Rpt Iron 33 - 151 ug/dL 110 Iron Binding Capacity 250 - 425 ug/dL 358 Transferrin Saturation Percent 15 - 55 % 31 Ferritin 13 - 150 ng/mL 82 Immature Reticuloctye Fraction 2.5 - 20.6 % 14.3 Reticulocyte Hemoglobin 29.7 - 37.4 pg 33.6 Absolute Reticulocyte 31.3 - 100.1 K/uL 83.1 Reticulocyte Percent 0.80 - 1.90 % 2.41 (H) (L): Data is abnormally low Current Patient Medications: Medications that may impair hemostasis: none Medications that may impair iron absorption: pepcid Patient Refused Blood Transfusion? (e.g. Mormonism): no Possible Contributing Factors: iron deficiency Treatment Recommendations: Pt refused IV iron infusion Recommend ferrous sulfate 325 mg + Vitamin C 250 mg BID or TID as tolerated from PNV Docusate 100 mg PO daily TID prn constipation Recheck hgb in 2-3 weeks and re-refer for iron infusions as indicated Follow-up Recommendations: 10/16- Spoke with Pt over the phone. Pt reports she was not told to take an oral iron supplement during current , does report tolerating oral iron supplements during previous . Pt reports some fatigue at times but denies other symptoms of iron deficiency. Discussed iron repletion options including oral supplements versus iron infusions. Educated on iron rich foods to incorporateinto diet. Risks and benefits of IV iron, including risk of adverse drug reaction discussed with patient. Patient voiced understanding. At this time, Pt prefers to begin oral iron supplement, make dietary changes, and have labs rechecked in 2-3 weeks or per provider preference. If hgb/iron labs do not improve or symptoms worsen, Pt states she would be agreeable to IV iron infusion at that time. Please re-refer to PBM as indicated. Thank you for allowing Blood Management to participate in the care of this patient. documented in this encounter Plan of Treatment Upcoming Encounters Date Type Department Care Team (Late st Contact Info) Description 10/18/2024 9:00 AM EST Laboratory Laboratory, [facility] [address] [place] [address] Forda[facility] condon Brady [address] [place] [address] 10/31/2024 9:00 AM EST Office Visit Gynecology/Obstetrics Rex Ford [address] [place] [address] Fe Tracy PA-C [address] [place] [address] Health Maintenance Due Date Last Done Comments [...] this encounter Medical Devices Implanted Type Area Liquefied Natural Gas Plant Operator Device Identifier Shelf Expiration Date Model / Serial / Lot Mesh 3dmax 3.1x5.3in Lft Med - [id number] Implanted:Qty: 1 on 12/04/2020 by Josue Farr MD at OR [facility] Left: Groin CECY BARD : DAVOL 01/03/2025 [id number] / / [id number] documented as of this encounter Advance Directives * Full Code (Latest Code Status on File) Date Activated Date Inactivated Comments 12/04/2020 12:25 PM 12/04/2020 8:17 PM This order reflects the patients wishes and were consensually agreed upon. Care Teams Track Watchman Relationship Specialty Start Date End Date Annette See DO [address] [place], [place] [id number] PCP - General Family Medicine 11/04/19 documented as of this encounter
--- OUTSIDE RECORDS SUMMARY | 2025-01-04 05:33 | External Medical Summary ---
Author Name Unknown Address Unknown Organization K01:LABORATORY [facility] - [facility] [place] [address] Laboratory Report Ordering Provider Test Date Status NORAMELISSA 11/18/2024 08:22:50 Final Observation Date Value Abnormality Reference (Units ) Status WBC, Total 11/18/2024 08:22:50 7.14 4.00-10.8 0 (K/uL) Final RBC 11/18/2024 08:22:50 3.46 3.85-5.15 (M/uL) Final Hemoglobin 11/18/2024 08:22:50 10.7 Below low normal 12 .0-15.3 (g/dL) Final Anemia reflex testing trigge rs on a HGB < 12.0 for Females and HGB < 13.0 for Males in accordance with the WHO Anemia Guidelines
Anemia reflex testing triggers on a HGB < 12.0 for Females and HGB < 13.0 for Males in accordance with the WHO Anemia Guidelines HCT 11/18/2024 08:22:50 31.9 Below low normal 36. 0-45.2 (%) Final MCV 11/18/2024 08:22:50 92.2 81.5-97.5 (fL) Final MCH 11/18/2024 08:22:50 30.9 27.0-34.0 (pg) Final MCHC 11/18/2024 08:22:50 33.5 32.0-36.0 (g/dL) Final RDW 11/18/2024 08:22:50 12.9 11.5-15.5 (%) Final Platelets 11/18/2024 08:22:50 157 140-400 (K /uL) Final MPV 11/18/2024 08:22:50 10.3 6.6-11.1 ( fL) Final Nucleated erythrocytes/100 leukocytes [Ratio] in Blood by Automated count 11/18/2024 08:22:50 0 <=0 (/100 WBCs) Final Performing Location LAB[facility] - [address] [facility] [address]
--- OUTSIDE RECORDS SUMMARY | 2025-01-04 05:33 | External Medical Summary | Summary of Care ---
Author Name Unknown Organization [facility] Address [address] [facility] [place] [address] Phone [phone] Care Team Providers Care Channel Man Name Role Phone Annette See DO Primary Care Provider Reason for Visit * Reason Comments Return Visit Encounter Details Date Type Department Care Team (Late st Contact Info) Description 10/31/2024 9:00 AM EST Office Visit Gynecology/Obstetric s Rex Ford [address] [place] [address] Fe Tracy PA-C [address] [place] [address] Encounter for supervision of other normal , unspecified trimester*; Antepartum anemia complicating ; Thrombophlebitis; Abnormal glucose tolerance in mother complicating ; Rh negative status during in third trimester Allergies Active Allergy Reactions Criticality Noted Date Comments Amoxicillin 02/21/2006 rash documented as of this encounter (statuses as of 10/31/2024) Medications 28-0.8 MG Oral Tablet Take by mouth. Active DHA 200 MG Oral Capsule Take by mouth. Active Iron 325 (65 Fe) MG Oral Tablet Take by mouth. Active documented as of this encounter (statuses as of 10/31/2024) Active Problems Problem Noted Date Diagnosed Date [...] as of this encounter (statuses as of 10/31/2024) Resolved Problems Problem Noted Date Diagnosed Date Resolved Date Encounter for insertion of Mirena IUD 06/18/2020 06/18/2020 Urticaria 02/21/2006 documented as of this encounter (statuses as of 10/31/2024) Immunizations Name Administration Dates Next Due Seasonal [...] money to get more. 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 Not on file Not on file documented as of this encounter Last Filed Vital Signs Vital Sign Reading Time Taken Comments Blood Pressure 100/60 10/31/2024 8:54 AM EST Pulse - - Temperature - - Respiratory Rate - - Oxygen Saturation - - Inhaled Oxygen Concentration - - Weight 72.6 kg (160 lb) 10/31/2024 8:54 AM EST Height - - Body Mass Index 25.82 09/16/2024 4:34 PM EST documented in this encounter Progress Notes * Fe Tracy PA-C - 10/31/2024 9:00 AM EST Nani Carver is a 29 year old female here for her routine OB appointment at 31w1d Her Estimated Date of Delivery: 01/01/25 REVIEW OF SYSTEMS She affirms movement. Denies vaginal bleeding, LOF, contractions. PHYSICAL EXAM Filed Vitals: 10/31/24 0854 BP: 100/60 Weight: 72.6 kg (160 lb) +FHT 130s Fundal height 31 cm ASSESSMENT/PLAN Encounter for supervision of other normal , unspecified trimester (Primary) Antepartum anemia complicating - CBC WITH WBC DIFFERENTIAL AND ANEMIA REFLEX WORKUP; Future; Expected date: 11/14/2024 - To complete repeat CBC with next HAILE. Thrombophlebitis Abnormal glucose tolerance in mother complicating - Passed 3 hour GTT Supervision of - labor precautions and kick counts reviewed - did not bring Rh negative paperwork for FOB to today's visit - will bring next time. RTO in 2 weeks Fe Tracy PA-C 10/31/2024 * Myah Laurent LPN - 10/31/2024 8:55 AM EST 31w1d Denies vaginal bleeding/rom + movement No new concerns documented in this encounter Plan of Treatment Upcoming Encounters Date Type Department Care Team (Late st Contact Info) Description 11/18/2024 8:20 AM EST Laboratory Laboratory, [facility] [address] [place] [phone] Janes Ford Brady [address] [place] [address] 11/18/2024 8:30 AM EST Office Visit Gynecology/Obstetrics [facility] [address] [place] [address] Backer, LORENZO Dillon [address] [place] [address] Scheduled Orders Name Type Priority Associated Diagnoses Orde r Schedule CBC WITH WBC DIFFERENTIAL AND ANEMIA REFLEX WORKUP Lab Routine Antepartum anemia complicating Expected: 11/14/2024, Expires: 10/31/2025 Health Maintenance Due Date Last Done Comments [...] this encounter Medical Devices Implanted Type Area Hydrogen Plant Operator Device Identifier Shelf Expiration Date Model / Serial / Lot Mesh 3dmax 3.1x5.3in t Med - [id number] Implanted:Qty: 1 on 12/04/2020 by Josue Farr MD at OR [facility] Left: Groin CR BARD : DAVOL 01/03/2025 [id number] / / [id number] documented as of this encounter Visit Diagnoses Diagnosis Encounter for supervision of other normal , unspecified trimester- Primary Antepartum anemia complicating Anemia, antepartum Thrombophlebitis Phlebitis and thrombophlebitis of unspecified site Abnormal glucose tolerance in mother complicating Abnormal maternal glucose tolerance, complicating , childbirth, or the puerperium, unspecified as to episode of care Rh negative status during in third trimester documented in this encounter Advance Directives * Full Code (Latest Code Status on File) Date Activated Date Inactivated Comments 12/04/2020 12:25 PM 12/04/2020 8:17 PM This order reflects the patients wishes and were consensually agreed upon. Care Teams Channel Man Relationship Specialty Start Date End Date Annette See DO [facility] [place] [address] PCP - General Family Medicine 11/04/19 documented as of this encounter
--- OUTSIDE RECORDS SUMMARY | 2025-01-04 05:33 | External Medical Summary ---
Author Name Unknown Address Unknown Organization K01:LABORATORY [facility] [place] - [address] [place] [address] Laboratory Report Ordering Provider Test Date Status SIDNEY GAYTAN 10/11/2024 15:30:19 Final Observation Date Value Abnormality Reference (Units ) Status Iron 10/11/2024 15:30:19 110 33-151 (ug /dL) Final Iron-binding capacity 10/11/2024 15:30:19 358 250-425 (ug/dL) Final Transferrin Sat % 10/11/2024 15:30:19 31 15 -55 (%) Final Performing Location LABORATORY C - [address] [place] [address]
--- OUTSIDE RECORDS SUMMARY | 2025-01-04 05:33 | External Medical Summary ---
Author Name Unknown Address Unknown Organization K01:LABORATORY [facility] [place] [address] [place] [address] Laboratory Report Ordering Provider Test Date Status SIDNEY GAYTAN 10/11/2024 15:30:19 Final Observation Date Value Abnormality Reference (Units ) Status Creatinine 10/11/2024 15:30:19 0.6 0.5-1.0 (mg/dL) Final Glomerular filtration rate/1.73 sq M.predicted [Volume Rate/Area] in Serum, Plasma or Blood by Creatinine-based formula (CKD-EPI) 10/11/2024 15:30:19 >90 >=60 (mL/min) Final eGFR is calculated based on the CKD-EPI 2020 equation. Performing Location LABORATORY [facility] [place] - [address] [place] [address]
--- OUTSIDE RECORDS SUMMARY | 2025-01-04 05:34 | External Medical Summary | Summary of Care ---
Author Name Unknown Organization [facility] Address [address] [facility] [place] [address] Phone [phone] Care Team Providers Care Shrimp Trawler Captain Name Role Phone Annette See DO Primary Care Provider Reason for Visit * Reason Comments Return Visit Encounter Details Date Type Department Care Team (Late st Contact Info) Description 08/16/2024 3:30 PM EDT Office Visit Gynecology/Obstetric [facility] [address] [facility] [place] [address] Fe Tracy PA-C [address] [facility] [place] [address] Encounter for supervision of other normal , unspecified trimester*; Thrombophlebitis; Rh negative status during in second trimester Allergies Active Allergy Reactions Criticality Noted Date Comments Amoxicillin 02/21/2006 rash documented as of this encounter (statuses as of 08/16/2024) Medications Medication Sig Dispensed Refills Start Date End Date Status 28-0.8 MG Oral Tablet Take by mouth. Active DHA 200 MG Oral Capsule Take by mouth. Active documented as of this encounter (statuses as of 08/16/2024) Active Problems Problem Noted Date Diagnosed Date Rh negative status during 06/04/2024 Encounter for supervision of other normal , unspecified trimester 06/03/2024 Overview: Considering home Thrombophlebitis 06/03/2024 Overview: Left inguinal thrombophlebitis after last delivery, same area of inguinal hernia. Was on lovenox for 6 weeks pelvic thrombophlebitis 06/18/2020 IUD (intrauterine device) in place 06/18/2020 Overview: Mirena Allergic urticaria 02/21/2006 Allergic rhinitis 02/21/2006 CHR ALLRG CONJUNCTIV NEC 02/21/2006 Estimated Date of Delivery Comme nts Yes 01/01/2025 Based on last me nstrual period of 03/27/2024 documented as of this encounter (statuses as of 08/16/2024) Resolved Problems Problem Noted Date Diagnosed Date Resolved Date Encounter for insertion of Mirena IUD 06/18/2020 06/18/2020 Urticaria 02/21/2006 documented as of this encounter (statuses as of 08/16/2024) Immunizations Name Administration Dates Next Due Seasonal [...] money to get more. Never true 08/15/2024 [place] Depression Scale Answer Date Recorded [place] Depression Scale Total 0 06/03/2024 The thought [...] Recorded Sex Assigned at Not on file Gender Identity Not on file Sexual Orientation Not on file Job Start Date Occupation Industry Not on file Not on file Not on file documented as of this encounter Last Filed Vital Signs Vital Sign Reading Time Taken Comments Blood Pressure 116/64 08/16/2024 2:22 PM EDT Pulse - - Temperature - - Respiratory Rate - - Oxygen Saturation - - Inhaled Oxygen Concentration - - Weight 68 kg (150 lb) 08/16/2024 2:22 PM EDT Height - - Body Mass Index 24.21 07/11/2024 3:02 PM EDT documented in this encounter Progress Notes * Fe Tracy PA-C - 08/16/2024 2:30 PM EDT Nani Carver is a 29 year old female here for her routine OB appointment at 20w2d Her Estimated Date of Delivery: 01/01/25 REVIEW OF SYSTEMS She affirms movement. Denies vaginal bleeding, LOF, contractions, N/V, headaches, vision changes. PHYSICAL EXAM Filed Vitals: 08/16/24 1422 BP: 116/64 Weight: 68 kg (150 lb) +FHT 140s Fundal height 20 cm ASSESSMENT/PLAN Encounter for supervision of other normal , unspecified trimester (Primary) Thrombophlebitis Rh negative status during in second trimester Supervision of - recommended flu vaccine - patient declined today - had anatomy u/s today before her appointment - Final report not in at the time of her visit. Preliminary results WNLs RTO in 4 weeks Fe Tracy PA-C 08/16/2024 * Agnes Huntley CMA - 08/16/2024 2:22 PM EDT 20w2d Denies any concerns documented in this encounter Plan of Treatment Upcoming Encounters Date Type Department Care Team (Late st Contact Info) Description 09/16/2024 4:30 PM EST Office Visit Gynecology/Obstetrics [facility] [address] [place] [address] Soco Jones PA-C [address] [place] [address] Health Maintenance Due Date Last Done Comments HPV (Gardasil) Vaccine (2 - 3-dose series) 06/10/2008 05/13/2008 Depression Screening 03/17/2021 03/17/2020 COVID-19 Vaccine (2023- season) 2024 Influenza Vaccine (FLU shot) (#1) [...] this encounter Medical Devices Implanted Type Area Printing Equipment Mechanic Apprentice Device Identifier Shelf Expiration Date Model / Serial / Lot Mesh 3dmax 3.1x5.3in Lft Med - [id number] Implanted:Qty: 1 on 12/04/2020 by Josue Farr MD at OR [facility] Left: Groin CR BARD : DAVOL 01/03/2025 [id number] / / [id number] documented as of this encounter Visit Diagnoses Diagnosis Encounter for supervision of other normal , unspecified trimester- Primary Thrombophlebitis Phlebitis and thrombophlebitis of unspecified site Rh negative status during in second trimester documented in this encounter Advance Directives * Full Code (Latest Code Status on File) Date Activated Date Inactivated Comments 12/04/2020 12:25 PM 12/04/2020 8:17 PM This order reflects the patients wishes and were consensually agreed upon. Care Teams Shrimp Trawler Captain Relationship Specialty Start Date End Date Annette See DO [address] [place] [address] PCP - General Family Medicine 11/04/19 documented as of this encounter
--- OUTSIDE RECORDS SUMMARY | 2025-01-04 05:34 | External Medical Summary | Summary of Care ---
Author Name Unknown Organization [facility] Address [address] [facility] [place] [address] Phone [phone] Care Team Providers Care Gateman Name Role Phone Annette See DO Primary Care Provider Reason for Visit * Reason Comments Return Visit Encounter Details Date Type Department Care Team (Late st Contact Info) Description 07/11/2024 3:15 PM EDT Office Visit Gynecology/Obstetric s [facility] [address] [place] [address] Noelle Schaefer CRNP [address] [place] [address] Encounter for supervision of other normal , unspecified trimester*; Thrombophlebitis; Rh negative status during in second trimester Allergies Active Allergy Reactions Criticality Noted Date Comments Amoxicillin 02/21/2006 rash documented as of this encounter (statuses as of 07/11/2024) Medications Medication Sig Dispensed Refills Start Date End Date Status 28-0.8 MG Oral Tablet Take by mouth. Active DHA 200 MG Oral Capsule Take by mouth. Active documented as of this encounter (statuses as of 07/11/2024) Active Problems Problem Noted Date Diagnosed Date [...] as of this encounter (statuses as of 07/11/2024) Resolved Problems Problem Noted Date Diagnosed Date Resolved Date Encounter for insertion of mirena IUD 06/18/2020 06/18/2020 Urticaria 02/21/2006 documented as of this encounter (statuses as of 07/11/2024) Immunizations Name Administration Dates Next Due Seasonal [...] the money to buy more. Never true 02/06/20 24 Within the past 12 months, t he food you bought just didn't last and you didn't have money to get more. Never true 02/06/2024 [place] Depression Scale Answer Date Recorded [place] Depression Scale Total 0 06/03/2024 The thought of harming myself has occurred to me . Never 06/03/2024 Childcare Answer Date Recorded Do you feel overwhelmed with taking care of a child, family member or friend? No 02/06/2024 Does your family need help f inding childcare? (Household - for ages 0-17 years) Not on file 02/06/2024 Clothing Answer Date Recorded Have you been unable to get clothing when it was really needed? No 02/06/2024 Is your family able to get c lothes or diapers when needed? (Household - for ages 0-17 years) Not on file 02/06/2024 Personal Safety Answer Date Recorded Do you feel unsafe or have concerns for your saf ety? No 02/06/2024 Do you have concerns for you r family's safety? (Household - for ages 0-17 years) Not on file 02/06/2024 Utilities Answer Date Recorded Do you have trouble paying y our heating, water, or electric bill? No 02/06/2024 Is your family able to pay t he heat, water, or electric bill? (Household - for ages 0-17 years) Not on file 02/06/2024 Does your family have access to good internet? (Household - for ages 0-17 years) Not on file 02/06/2024 Employment Status Answer Date Recorded Are you unemployed or without regular income? No 02/06/2024 Does the household have a re lar source of income? (Household - for ages 0-17 years) Not on file 02/06/2024 Social Connections Answer Date Recorded How often do you feel lonely or isolated from th ose around you? Never 02/06/2024 Financial Resource Strain Answer Date R ecorded Do you have any trouble payi ng for your medications, or do you think you might in the future? No 02/06/2024 Does your family have troubl e paying for medicine? (Household - for ages 0-17 years) Not on file 02/06/2024 Transportation Needs Answer Date Record ed READ ONLY Do you have troubl e getting a ride to medical visits or work? Never True 02/06/2024 Does your family have a hard time getting a ride to doctors visits? (Household - for ages 0-17 years) Not on file 02/06/2024 Has lack of transportation k ept you from medical appointments, meetings, work, or from getting things needed for daily living? Check all that apply. (Adult - for ages 18 years and over) Not on file 02/06/2024 Do you (or your family) have trouble finding or paying for a ride (transportation)? (Household - for ages 0-17 years) Not on file 02/06/2024 Housing Stability Answer Date Recorded Do you currently live in a s helter or have no steady place to sleep at night? No 02/06/2024 READ ONLY Do you think you a re at risk of becoming homeless? No 02/06/2024 Does your family worry about paying for your home or becoming homeless? (Household - for ages 0-17 years) Not on file 0 02/06/2024 Are you homeless or worried that you might be in the future? (Adult - for ages 18 years and over) Not on file Are you (or your family) mika eless or worried that you might be in the future? (Household - for ages 0-17 years) Not on file Food Insecurity Answer Date Recorded Do you need food for this week? No 02/06/2024 Are you able to get enough f ood for your family? (Household - for ages 0-17 years) Not on file 02/06/2024 Does your family need food t his week? (Household - for ages 0-17 years) Not on file 02/06/2024 Do you always have enough fo od for your family? (Household - for ages 0-17 years) Not on file 02/06/2024 Estimated Date of Delivery Comme nts Yes [...] Sign Reading Time Taken Comments Blood Pressure 114/62 07/11/2024 3:02 PM EDT Pulse - - Temperature - - Respiratory Rate - - Oxygen Saturation - - Inhaled Oxygen Concentration - - Weight 64.9 kg (143 lb) 07/11/2024 3:02 PM EDT Height 167.6 cm (5' 6") 07/11/2024 3:02 PM EDT Body Mass Index 23.08 07/11/2024 3:02 PM EDT documented in this encounter Progress Notes * Noelle Schaefer CRNP - 07/11/2024 3:09 PM EDT 15w1d No concerns. Feeling well. Feeling a bit of FM. No bleeding. Anatomy u/s with next visit. LORENZO Valladares documented in this encounter Nursing Notes * Tahmina Rodriguez LPN - 07/11/2024 3:05 PM EDT 15w1d Denies concerns documented in this encounter Plan of Treatment Upcoming Encounters Date Type Department Care Team (Late st Contact Info) Description 08/16/2024 1:15 PM EDT Imaging Radiology [facility] 2nd [facility] [address] [facility] [place] [address] 08/16/2024 3:30 PM EDT Office Visit Gynecology/Obstetrics [facility] [address] [facility] [place] [address] Fe Tracy PA-C [address] [place] [address] Scheduled Orders Name Type Priority Associated Diagnoses Orde r Schedule US PREG SINGLE/1ST GEST, 14 WEEKS OR LATER Medical Imaging Routine Encounter for supervision of other normal , unspecified trimester Expected: 08/15/2024, Expires: 08/10/2025 Health Maintenance Due Date Last Done Comments [...] this encounter Medical Devices Implanted Type Area Food Checker Device Identifier Shelf Expiration Date Model / Serial / Lot Mesh 3dmax 3.1x5.3in Lft Med - [id number] Implanted:Qty: 1 on 12/04/2020 by Josue Farr MD at OR [facility] Left: Groin CR BARD : DAVOL 01/03/2025 [id number] / / [id number] documented as of this encounter Visit Diagnoses [...] and were consensually agreed upon. Care Teams Gateman Relationship Specialty Start Date End Date Annette See DO [address] [place] [address] PCP - General Family Medicine 11/04/19 documented as of this encounter
--- OUTSIDE RECORDS SUMMARY | 2025-01-04 05:34 | External Medical Summary | Summary of Care ---
Author Name Unknown Organization [facility] Address [address] [facility] [place] [address] Phone [phone] Care Team Providers Care Production Assembly Operator Name Role Phone Annette See DO Primary Care Provider Reason for Visit * Reason Comments Return Visit Encounter Details Date Type Department Care Team (Late st Contact Info) Description 09/16/2024 4:30 PM EST Office Visit Gynecology/Obstetric s [facility] [address] [place] [address] Soco Jones PA-C [address] [place] [address] Encounter for supervision of other normal , unspecified trimester*; Thrombophlebitis; Rh negative status during in second trimester Allergies Active Allergy Reactions Criticality Noted Date Comments Amoxicillin 02/21/2006 rash documented as of this encounter (statuses as of 09/16/2024) Medications 28-0.8 MG Oral Tablet Take by mouth. Active DHA 200 MG Oral Capsule Take by mouth. Active documented as of this encounter (statuses as of 09/16/2024) Active Problems Problem Noted Date Diagnosed Date [...] as of this encounter (statuses as of 09/16/2024) Resolved Problems Problem Noted Date Diagnosed Date Resolved Date Encounter for insertion of Mirena IUD 06/18/2020 06/18/2020 Urticaria 02/21/2006 documented as of this encounter (statuses as of 09/16/2024) Immunizations Name Administration Dates Next Due Seasonal [...] money to get more. 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 First time seeing patient. Denies VB, LOF, contractions. Pos fm. Reviewed third tri labs and glucola with next visit. B neg reviewed indications for Rhogam. Patientstates that she would like to declines as FOB is O negative. FOB in and can likely providerecords of this. We discussed that benefits of injection outweigh risk and recommendation is typically for it regardless of FOB's blood type. Pt states would still like to decline if not indicated. Will bring his records with next appointment. Discussed need to review and have scanned to chart. RTC in 3 weeks Soco Jones PA-C documented in this encounter Nursing Notes * Romi Cho RN - 09/16/2024 4:34 PM EST Patient here for HAILE visit 24w5d No concerns + FM Romi Cho RN documented in this encounter Plan of Treatment Scheduled Orders Name Type Priority Associated Diagnoses Orde r Schedule 50-G GESTATIONAL GLUCOSE, 1 HOUR Lab Routine Encounter for supervision of other normal , unspecified trimester Expected: 09/30/2024, Expires: 09/16/2025 CBC WITH WBC DIFFERENTIAL AND ANEMIA REFLEX WORKUP Lab Routine Encounter for supervision of other normal , unspecified trimester Expected: 09/30/2024, Expires: 09/16/2025 TYPE AND SCREEN Lab Routine Encounter for supervision of other normal , unspecified trimester Expected: 09/30/2024, Expires: 10/16/2025 SYPHILIS ANTIBODY SCREEN WITH REFLEX TO RPR Lab Routine Encounter for supervision of other normal , unspecified trimester Expected: 09/30/2024, Expires: 09/16/2025 Health Maintenance Due Date Last Done Comments [...] this encounter Medical Devices Implanted Type Area Consumer Loan Officer Device Identifier Shelf Expiration Date Model / Serial / Lot Mesh 3dmax 3.1x5.3in Lft Med - [id number] Implanted:Qty: 1 on 12/04/2020 by Josue Farr MD at OR [facility] Left: Groin CR BARD : DAVOL 01/03/2025 [id number] / / [id number] documented as of this encounter Visit Diagnoses [...] and were consensually agreed upon. Care Teams Production Assembly Operator Relationship Specialty Start Date End Date Annette See DO [address] [place] [address] PCP - General Family Medicine 11/04/19 documented as of this encounter
[2025-01-04 08:11] LABS: Hematocrit (blood only) 33.5 % (37.0-47.0); Hemoglobin 11.6 g/dl (12.0-16.0); Mean Corpuscular Hemoglobin 30.4 pg (25.0-34.0); Mean Corpuscular Hgb Conc 34.6 g/dL (32.0-36.0); Mean Corpuscular Volume 87.7 fL (80.0-100.0); Mean Platelet Volume 10.9 fL (9.4-12.4); Platelet Count 132 K/uL (130-400); RDW Coefficient of Variation 12.5 % (11.5-14.5); RDW Standard Deviation 40.1 fL (36.4-46.3); Red Blood Count 3.82 M/uL (4.20-5.40); White Blood Count 9.98 K/ul (4.8-10.8)
[2025-01-04] MEDS ORDERED: DOCOSAHEXAENOIC ACID 200 MG PO SCH (09:00)
[2025-01-04] MEDS ORDERED: [UNRECOGNIZED DRUG - OTHER] PO SCH (09:00)
[2025-01-04] MEDS ORDERED: PNV CMB FERROUS FUMARATE FA PO SCH (09:00)
[2025-01-04] MEDS ORDERED: IRON PO SCH (09:00)
--- NOTE | 2025-01-04 10:33 | Obstetrical Progress Note ---
Date of Service January 04, 2025 Assessment & Plan (1) Normal course: day #1 pt doing well No complaints Pt wishes to be discharged home this PM Results & Data Vital Signs (Past 12 Hours) Vital Signs Temp Pulse Pulse Resp BP BP Pulse Ox 01/04/25 07:35 36.9 C 75 16 108/68 96 01/04/25 04:28 36.7 C 73 18 106/67 97 01/04/25 01:00 36.5 C 69 16 102/68 98 01/04/25 00:26 72 106/65 01/04/25 00:15 36.6 C 18 01/04/25 00:15 72 103/54 L 01/04/25 00:00 83 101/59 L 01/03/25 23:45 36.6 C 18 01/03/25 23:45 86 106/59 L 01/03/25 23:30 71 111/63 01/03/25 23:15 36.6 C 18 01/03/25 23:15 68 112/64 01/03/25 23:00 36.6 C 18 01/03/25 23:00 68 126/56 L 01/03/25 22:45 36.6 C 18 01/03/25 22:45 69 102/59 L O2 Del Method 01/04/25 07:35 Room Air 01/04/25 04:28 Room Air 01/04/25 01:00 Room Air 01/04/25 00:26 01/04/25 00:15 01/04/25 00:15 01/04/25 00:00 01/03/25 23:45 01/03/25 23:45 01/03/25 23:30 01/03/25 23:15 01/03/25 23:15 01/03/25 23:00 01/03/25 23:00 01/03/25 22:45 01/03/25 22:45
[2025-01-04] MEDS: ACETAMINOPHEN 325 MG TAB PO PRN (15:34)
[2025-01-04 15:40] VITALS: O2SAT 97
[2025-01-04] MEDS: PRENATAL VITAMIN 1 TAB PO SCH (20:59)
[2025-01-04] MEDS: DOCUSATE SODIUM 100 MG CAP PO SCH (20:59)
[2025-01-04] MEDS: CYANOCOBALAMIN (B-12) 500 MCG TABLET PO SCH (20:59)
[2025-01-04] MEDS: bisacodyL 5 MG TABEC PO SCH (21:02)
[2025-01-04 21:08] VITALS: BP 114/70; PULSE 75; RESP 18; TEMP 97.9
[2025-01-05] MEDS ORDERED: bisacodyL 10 MG SUPP PR PRN (22:27)
== END 2025-01-04 23:00 | disposition home health service (06) | DRG 807 ==
LOC: OPB 19:14 → 4S1 19:17 → 4E2 22:11 → 4S1 22:29 → 4E2 01-04 01:44